=== PATIENT | male | born 1970 | race Caucasian/White ===

== ENCOUNTER 2016-12-06 08:38 | Inpatient (IN) | payer OTHER ==
[2016-12-06 08:56] VITALS: BMI 26.7
--- NOTE | 2016-12-06 11:25 | HP ---
COWS - Scale Resting Pulse: 0= [place] 80 or Below Sweatin= Chills/Flushing Restless Observation: 3= Extraneous Movement Pupil Size: 2= Moderately Dilated Bone or Joint Aches: 4=Acute Joint/Muscle Pain Runny Nose/ Eye Tearin= Nasal Congestion GI Upset > 30mins: 2= Nausea/Diarrhea Tremor Observation: 1= Tremor [place], Not Seen Yawning Observation: 1= 1-2x During Session Anxiety or Irritability: 2=Irritable/Anxious Goose Flesh Skin: 0=Smooth Skin COWS Score: 17 Admission ROS S - HPI Chief Complaint: DETOX [place] FOR HEROIN DEPENDENCE Allergies/Adverse Reactions: Allergies Allergy/AdvReac Type Severity Reaction Status Date / Time No Known Allergies Allergy Verified 12/06/16 09:13 History of Present Illness: 46 Y/O MALE WITH A HX HEROIN DEPENDENCE SEEKING DETOX [place] Exam Limitations: No Limitations - Ebola screening Have you traveled outside of the country in the last 21 days: No Have you had contact with anyone from an Ebola affected area: No Have you been sick,other than usual withdrawal symptoms: No Do you have a fever: No - Review of Systems Constitutional: Chills, Loss of Appetite, Night Sweats, Changes in sleep EENT: reports: Blurred Vision, Tearing, Nose Congestion Respiratory: reports: No Symptoms reported Cardiac: reports: Lightheadedness GI: reports: Constipated, Diarrhea, Nausea, Poor Fluid Intake, Vomiting, Indigestion, Abdominal cramping : reports: Dysuria Musculoskeletal: reports: Back Pain, Joint Pain, Muscle Pain Integumentary: reports: No Symptoms Reported Neuro: reports: Headache Endocrine: reports: No Symptoms Reported Hematology: reports: No Symptoms Reported Psychiatric: reports: Orientated x3, Agitated, Anxious, Depressed (HX DEPRESSION ) Other Systems: Reviewed and Negative Patient History - Patient Medical History Hx Anemia: No Hx Asthma: No Hx Chronic Obstructive Pulmonary Disease (COPD): No Hx Cancer: No Hx Cardiac Disorders: No Hx Congestive Heart Failure: No Hx Hypertension: No Hx Hypercholesterolemia: No Hx Pacemaker: No HX Cerebrovascular Accident: No Hx Seizures: No Hx Dementia: No Hx Diabetes: No Hx Gastrointestinal Disorders: No Hx Liver Disease: No Hx Genitourinary Disorders: No Hx Sexually Transmitted Disorders: No Hx Renal Disease (ESRD): No Hx Thyroid Disease: No Hx Human Immunodeficiency Virus (HIV): No (LAST 12/03 NEGATIVE) Hx Hepatitis C: Yes (NO TREATMENT) Hx Depression: Yes (NOT CURRENTLY ON MEDS) Hx Suicide Attempt: No (DENIES) Hx Bipolar Disorder: No Hx Schizophrenia: No - Patient Surgical History Past Surgical History: Yes Hx Neurologic Surgery: No Hx Cataract Extraction: No Hx Cardiac Surgery: No Hx Lung Surgery: No Hx Breast Surgery: No Hx Breast Biopsy: No Hx Abdominal Surgery: No Hx Appendectomy: No Hx Cholecystectomy: No Hx Genitourinary Surgery: No Hx Section: No Hx Orthopedic Surgery: No Other Surgical History: TOSLLECTOMY IN 1980 Anesthesia Reaction: No - PPD History Previous Implant?: Yes Documented Results: Negative w/proof Implanted On Prior [facility] Admission?: Yes Date: 05/24/16 Results: 0 MM PPD to be Administered?: No - Reproductive History Patient is a Female of Child Bearing Age (11 -55 yrs old): No (MALE) - Smoking Cessation Smoking history: Current every day smoker Have you smoked in the past 12 months: Yes Aproximately how many cigarettes per day: 60 Cigars Per Day: 0 Hx Chewing Tobacco Use: No Initiated information on smoking cessation: Yes 'Breaking Loose' booklet given: 12/06/16 - Substance & Tx. History Hx Alcohol Use: Yes (GIN-STATES NOT A PROBLEM SAYS DON'T DRINK EVERY DAY.) Hx Substance Use: Yes (HEROIN) Substance Use Type: Alcohol, Heroin Hx Substance Use Treatment: Yes ([facility]) - Substances Abused Heroin Route: Injection Frequency: Daily Amount used: 6 BAGS Age of first use: 44 Date of Last Use: 12/06/16 Family Disease History - Family Disease History Family History: Denies Admission Physical Exam [facility] - Vital Signs Vital Signs: Vital Signs - 24 hr 12/06/16 08:50 Temperature 96.3 F L Pulse Rate 80 Respiratory 18 Rate Blood Pressure 122/80 - Physical General Appearance: Yes: Irritable, Anxious HEENTM: Yes: EOMI, Normocephalic, ANDREW, Pharynx Normal Respiratory: Yes: Chest Non-Tender, Lungs Clear, Normal Breath Sounds, No Respiratory Distress Neck: Yes: Supple, Trachea in good position Breast: Yes: Breast Exam Deferred Abdominal: Yes: Normal Bowel Sounds, Non Tender, Soft Genitourinary: Yes: Other (N/C) Back: Yes: Within Normal Limits Musculoskeletal: Yes: full range of Motion, Gait Steady Extremities: Yes: Normal Range of Motion, Non-Tender Neurological: Yes: manager transmission II-XII NML intact, Fully Oriented, Alert, Motor Strength 5/5 Integumentary: Yes: Dry, Warm, Track [place] Lymphatic: Yes: Within Normal Limits - Diagnostic (1) History of tonsillectomy Current Visit: Yes Status: Chronic (2) Insomnia Current Visit: Yes Status: Chronic (3) Nicotine dependence Current Visit: Yes Status: Chronic Qualifiers: Nicotine product type: cigarettes Substance use status: uncomplicated Qualified Code(s): F17.210 - Nicotine dependence, cigarettes, uncomplicated (4) Opioid dependence with withdrawal Current Visit: Yes Status: Acute Cleared for Admission [facility] - Detox or Rehab [facility] Level of Care: Medically Managed Detox Regimen/Protocol: Methadone [facility] Breath Alcohol Content Breath Alcohol Content: 0 Urine Drug Screen - Results Drug Screen Negative: No Urine Drug Screen Results: OPI-Opiates
[2016-12-06] MEDS ORDERED: MAG HYDROX/AL HYDROX/SIMETH 30 ML UNIT-DOSE CUP PO PRN (12:05)
[2016-12-06] MEDS ORDERED: P-EPHED 60MG/TRIPROLIDI 2.5MG TABLET PO PRN (12:05)
[2016-12-06] MEDS ORDERED: hydrOXYzine PAMOATE 25 MG CAPSULE (FP) PO PRN (12:05)
[2016-12-06] MEDS ORDERED: NICOTINE POLACRILEX 4 MG GUM BUC PRN (12:05)
[2016-12-06] MEDS ORDERED: guaiFENesin/D-METHORPHAN HB 10 ML UNIT-DOSE CUPS PO PRN (12:05)
[2016-12-06] MEDS ORDERED: IBUPROFEN 400 MG TABLET (FP) PO PRN (12:05)
[2016-12-06] MEDS ORDERED: ACETAMINOPHEN 325 MG TABLET (FP) PO PRN (12:05)
[2016-12-06] MEDS ORDERED: MAGNESIUM HYDROX 2400MG/30ML ORAL SUSPENSION 30 ML CUP PO PRN (12:05)
[2016-12-06] MEDS ORDERED: LOPERAMIDE HCL 2 MG CAPSULE PO PRN (12:05)
[2016-12-06] MEDS ORDERED: MENTHOL/PHENOL 1 EACH UD MM PRN (12:05)
[2016-12-06] MEDS ORDERED: MAGNESIUM CITRATE 300 ML BOTTLE PO PRN (12:05)
[2016-12-06] MEDS ORDERED: METHADONE HCL 10 MG TABLET (FOR DETOX USE ONLY) PO ONE ×2 (12:16→23:00)
[2016-12-06] MEDS: diazePAM 5 MG TABLET PO PRN ×2 (12:27→22:21)
[2016-12-06] MEDS: NICOTINE 21 MG/24 HOURS TOPICAL PATCH TD SCH (12:27)
--- NOTE | 2016-12-06 17:06 | EKG ---
Test Reason : Blood Pressure : / mmHG Vent. Rate : 084 BPM Atrial Rate : 084 BPM P-R Int : 136 ms QRS Dur : 088 ms QT Int : 388 ms P-R-T Axes : 065 070 066 degrees QTc Int : 458 ms NORMAL SINUS RHYTHM NORMAL ECG NO PREVIOUS ECGS AVAILABLE Confirmed by ELIDA WALTERS, JESU ([id number]) on 12/06/2016 5:05:36 PM Referred By: Mike Guerra Confirmed By:JESU MARRERO MD
[2016-12-06 19:04] LABS: URINE APPEARANCE CLEAR; URINE BILIRUBIN NEGATIVE (NEGATIVE); URINE BLOOD NEGATIVE (NEGATIVE); URINE COLOR YELLOW; URINE GLUCOSE (UA) NEGATIVE (NEGATIVE); URINE KETONE NEGATIVE (NEGATIVE); URINE LEUK ESTERASE NEGATIVE (NEGATIVE); URINE NITRITE NEGATIVE (NEGATIVE); URINE PROTEIN NEGATIVE (NEGATIVE); URINE UROBILINOGEN NEGATIVE E.U./dl (0.2-1.0)
[2016-12-06] MEDS: THIAMINE HCL 100 MG TABLET (FP) PO SCH (22:20)
[2016-12-06] MEDS: diphenhydrAMINE HCL 50 MG CAPSULE PO PRN (22:22)
[2016-12-07] MEDS: diazePAM 5 MG TABLET PO PRN ×3 (05:39→22:32)
[2016-12-07] MEDS ORDERED: METHADONE HCL 10 MG TABLET (FOR DETOX USE ONLY) PO ONE (10:00)
[2016-12-07 10:31] LABS: MCHC 33.4 g/dl (32.0-35.9); MEAN CELL VOLUME 89.8 fl (80-96); PLATELET COUNT 202 K/MM3 (134-434); RDW 13.9 % (11.9-15.9); WHITE BLOOD COUNT 7.9 K/mm3 (4.0-10.0)
--- NOTE | 2016-12-07 10:50 | CONSULT ---
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 Smoking history: Current every day smoker. Have you smoked in the past 12 months: Yes. Aproximately how many cigarettes per day: 60. Cigars Per Day: 0. Hx Chewing Tobacco Use: No. Initiated information on smoking cessation: Yes. 'Breaking Loose' booklet given : 12/06/16. - Substance & Tx. History. Hx Alcohol Use: Yes (GIN-STATES NOT A PROBLEM SAYS DON'T DRINK EVERY DAY.). Hx Substance Use: Yes (HEROIN). Substance Use Type: Alcohol, Heroin. Hx Substance Use Treatment: Yes ([facility]- DETOX). - Substances Abused. Heroin. Route: Injection. Frequency: Daily. Amount used: 6 BAGS. Age of first use: 44. Date of Last Use: 12/06/16 Medical History: Significant for history of Hep C and S/P Tonsillectomy. Smokes cigarettes 3ppd Psychiatric History: Reports seeing a therapist for personal issues in his life. Told ghost writer that his addiction stemmed from those issues. Denies previous psychiatric hospitalization or suicidal attempt. At present, he is very angry and reporting having difficulty to sleep Mental Status Exam - Mental Status Exam Alert and Oriented to: Time, Place, Person Cognitive Function: Fair Patient Appearance: Well Groomed Mood: Angry, Irritable Affect: Appropriate Patient Behavior: Guarded, Cooperative Speech Pattern: Clear Voice Loudness: Normal Thought Process: Intact Thought Disorder: Not Present Hallucinations: Denies Suicidal Ideation: Denies Homicidal Ideation: Denies Insight/Judgement: Poor Sleep: Poorly Appetite: Fair Muscle strength/Tone: Normal Gait/Station: Normal Psychiatric Findings - Problem List ([place] 1, 2,3) (1) Substance induced mood disorder Current Visit: Yes Status: Acute (2) Opioid dependence with withdrawal Current Visit: Yes Status: Acute (3) Nicotine dependence Current Visit: Yes Status: Chronic Qualifiers: Nicotine product type: cigarettes Substance use status: uncomplicated Qualified Code(s): F17.210 - Nicotine dependence, cigarettes, uncomplicated (4) History of tonsillectomy Current Visit: Yes Status: Chronic (5) Hepatitis C Current Visit: Yes Status: Acute (6) Substance-induced sleep disorder Current Visit: Yes Status: Acute - Initial Treatment Plan Initial Treatment Plan: 1) Start Ambien 10 mg po HS prn for insomnia. 2) Continue inpatient detoxification
[2016-12-07] MEDS: PRENATAL VITAMINS W/ FOLIC ACID TABLET (FP) PO SCH (10:56)
[2016-12-07] MEDS: NICOTINE 21 MG/24 HOURS TOPICAL PATCH TD SCH (10:56)
--- NOTE | 2016-12-07 11:02 | PN ---
BHS COWS - Scale Resting Pulse: 1= [place] 81-100 Sweatin= Chills/Flushing Restless Observation: 3= Extraneous Movement Pupil Size: 2= Moderately Dilated Bone or Joint Aches: 4=Acute Joint/Muscle Pain Runny Nose/ Eye Tearin= Nasal Congestion GI Upset > 30mins: 1= Stomach Cramp Tremor Observation of Outstretched Hands: 2= Slight Tremor Visible Yawning Observation: 2= >3x During Session Anxiety or Irritability: 2=Irritable/Anxious Goose Flesh Skin: 0=Smooth Skin COWS Score: 19 BHS Progress Note (SOAP) Subjective: ANXIETY,SWEATS,CHILLS,INTERMITTENT SLEEP. Objective: 12/07/16 11:02 Vital Signs Temperature 96.6 F L 12/07/16 09:34 Pulse Rate 84 12/07/16 09:34 Respiratory Rate 18 12/07/16 09:34 Blood Pressure 144/104 12/07/16 09:34 O2 Sat by Pulse Oximetry (%) Laboratory Last Values WBC 7.9 K/mm3 (4.0-10.0) 12/07/16 06:00 RBC 5.05 M/mm3 (4.00-5.60) 12/07/16 06:00 Hgb 15.2 GM/dL (11.7-16.9) 12/07/16 06:00 Hct 45.4 % (35.4-49) 12/07/16 06:00 MCV 89.8 fl (80-96) 12/07/16 06:00 MCHC 33.4 g/dl (32.0-35.9) 12/07/16 06:00 RDW 13.9 % (11.9-15.9) D 12/07/16 06:00 Plt Count 202 K/MM3 (134-434) 12/07/16 06:00 MPV 9.0 fl (7.5-11.1) 12/07/16 06:00 Urine Color Yellow 12/06/16 14:00 Urine Appearance Clear 12/06/16 14:00 Urine pH 5.0 (5.0-8.0) 12/06/16 14:00 Ur Specific [place] 1.021 (1.001-1.035) 12/06/16 14:00 Urine Protein Negative (NEGATIVE) 12/06/16 14:00 Urine Glucose (UA) Negative (NEGATIVE) 12/06/16 14:00 Urine Ketones Negative (NEGATIVE) 12/06/16 14:00 Urine Blood Negative (NEGATIVE) 12/06/16 14:00 Urine Nitrite Negative (NEGATIVE) 12/06/16 14:00 Urine Bilirubin Negative (NEGATIVE) 12/06/16 14:00 Urine Urobilinogen Negative E.U./dl (0.2-1.0) 12/06/16 14:00 Ur Leukocyte Esterase Negative (NEGATIVE) 12/06/16 14:00 Assessment: 12/07/16 11:02 WITHDRAWAL SX Plan: CONTINUE DETOX
[2016-12-07 11:19] LABS: ALBUMIN 3.9 g/dl (3.4-5.0); ALK PHOS 192 U/L (45-117); ANION GAP 7 (8-16); BILIRUBIN,TOTAL 0.4 mg/dL (0.2-1.0); CALCIUM 9.1 mg/dL (8.5-10.1); CO2 31 mmol/L (21-32); CREATININE 1.1 mg/dL (0.7-1.3); GLUCOSE,RANDOM 98 mg/dL (74-106); SGOT/AST 56 U/L (15-37); SGPT/ALT 69 U/L (12-78); TOT PROT 7.6 g/dl (6.4-8.2)
[2016-12-07] MEDS ORDERED: ZOLPIDEM TARTRATE 10 MG TABLET (PARK CARE ONLY) PO PRN (22:00)
[2016-12-07] MEDS: diphenhydrAMINE HCL 50 MG CAPSULE PO PRN (22:31)
[2016-12-07] MEDS: THIAMINE HCL 100 MG TABLET (FP) PO SCH (22:31)
[2016-12-08] MEDS: diazePAM 5 MG TABLET PO PRN ×3 (05:20→22:42)
[2016-12-08] MEDS ORDERED: METHADONE HCL 5 MG TABLET (FOR DETOX USE ONLY) PO ONE (10:00)
[2016-12-08] MEDS: PRENATAL VITAMINS W/ FOLIC ACID TABLET (FP) PO SCH (10:38)
[2016-12-08] MEDS: NICOTINE 21 MG/24 HOURS TOPICAL PATCH TD SCH (11:01)
--- NOTE | 2016-12-08 11:34 | PN ---
BHS COWS - Scale Resting Pulse: 0= [place] 80 or Below Sweatin= Chills/Flushing Restless Observation: 3= Extraneous Movement Pupil Size: 0= Normal to Room Light Bone or Joint Aches: 2= Severe Diffuse Aches Runny Nose/ Eye Tearin= Nasal Congestion GI Upset > 30mins: 2= Nausea/Diarrhea Tremor Observation of Outstretched Hands: 2= Slight Tremor Visible Yawning Observation: 0= None Anxiety or Irritability: 2=Irritable/Anxious Goose Flesh Skin: 0=Smooth Skin COWS Score: 13 S Progress Note (SOAP) Subjective: irritability, shakes, sweats and nausea Objective: 12/08/16 11:33 Vital Signs - 8 hr 12/08/16 12/08/16 06:31 10:59 Temperature 97.2 F L 97 F L Pulse Rate 77 82 Respiratory 18 20 Rate Blood Pressure 144/93 126/91 Laboratory Last Values WBC 7.9 K/mm3 (4.0-10.0) 12/07/16 06:00 RBC 5.05 M/mm3 (4.00-5.60) 12/07/16 06:00 Hgb 15.2 GM/dL (11.7-16.9) 12/07/16 06:00 Hct 45.4 % (35.4-49) 12/07/16 06:00 MCV 89.8 fl (80-96) 12/07/16 06:00 MCHC 33.4 g/dl (32.0-35.9) 12/07/16 06:00 RDW 13.9 % (11.9-15.9) D 12/07/16 06:00 Plt Count 202 K/MM3 (134-434) 12/07/16 06:00 MPV 9.0 fl (7.5-11.1) 12/07/16 06:00 Sodium 141 mmol/L (136-145) 12/07/16 06:00 Potassium 3.9 mmol/L (3.5-5.1) 12/07/16 06:00 Chloride 103 mmol/L (98-107) 12/07/16 06:00 Carbon Dioxide 31 mmol/L (21-32) 12/07/16 06:00 Anion Gap 7 (8-16) L 12/07/16 06:00 BUN 15 mg/dL (7-18) D 12/07/16 06:00 Creatinine 1.1 mg/dL (0.7-1.3) 12/07/16 06:00 Creat Clearance w eGFR > 60 (>60) 12/07/16 06:00 Random Glucose 98 mg/dL (74-106) 12/07/16 06:00 Calcium 9.1 mg/dL (8.5-10.1) 12/07/16 06:00 Total Bilirubin 0.4 mg/dL (0.2-1.0) 12/07/16 06:00 AST 56 U/L (15-37) H D 12/07/16 06:00 ALT 69 U/L (12-78) 12/07/16 06:00 Alkaline Phosphatase 192 U/L (45-117) H 12/07/16 06:00 Total Protein 7.6 g/dl (6.4-8.2) 12/07/16 06:00 Albumin 3.9 g/dl (3.4-5.0) 12/07/16 06:00 Urine Color Yellow 12/06/16 14:00 Urine Appearance Clear 12/06/16 14:00 Urine pH 5.0 (5.0-8.0) 12/06/16 14:00 Ur Specific [place] 1.021 (1.001-1.035) 12/06/16 14:00 Urine Protein Negative (NEGATIVE) 12/06/16 14:00 Urine Glucose (UA) Negative (NEGATIVE) 12/06/16 14:00 Urine Ketones Negative (NEGATIVE) 12/06/16 14:00 Urine Blood Negative (NEGATIVE) 12/06/16 14:00 Urine Nitrite Negative (NEGATIVE) 12/06/16 14:00 Urine Bilirubin Negative (NEGATIVE) 12/06/16 14:00 Urine Urobilinogen Negative E.U./dl (0.2-1.0) 12/06/16 14:00 Ur Leukocyte Esterase Negative (NEGATIVE) 12/06/16 14:00 RPR Titer Nonreactive (NONREACTIVE) 12/07/16 06:00 Labs noted Assessment: 12/08/16 11:34 withdrawal sx Plan: continue detox
[2016-12-08] MEDS: THIAMINE HCL 100 MG TABLET (FP) PO SCH (22:42)
[2016-12-09] MEDS: diazePAM 5 MG TABLET PO PRN (05:15)
[2016-12-09 06:27] VITALS: BP 130/79; PULSE 78; TEMP 97.3
[2016-12-09] MEDS ORDERED: METHADONE HCL 5 MG TABLET (FOR DETOX USE ONLY) PO ONE (10:00)
--- NOTE | 2016-12-09 10:59 | DS ---
[facility] Detox Discharge Summary Admission Date: 12/06/16 Discharge Date: 12/09/16 - History Present History: Cocaine Dependence, Opioid Dependence Pertinent Past History: Hep C- Never Treated - Physical Exam Results Vital Signs: Vital Signs Temperature 97.3 F L 12/09/16 06:27 Pulse Rate 78 12/09/16 06:27 Respiratory Rate 18 12/09/16 06:27 Blood Pressure 130/79 12/09/16 06:27 O2 Sat by Pulse Oximetry (%) Pertinent Admission Physical Exam Findings: Withdrawal Symptoms Laboratory Last Values WBC 7.9 K/mm3 (4.0-10.0) 12/07/16 06:00 RBC 5.05 M/mm3 (4.00-5.60) 12/07/16 06:00 Hgb 15.2 GM/dL (11.7-16.9) 12/07/16 06:00 Hct 45.4 % (35.4-49) 12/07/16 06:00 MCV 89.8 fl (80-96) 12/07/16 06:00 MCHC 33.4 g/dl (32.0-35.9) 12/07/16 06:00 RDW 13.9 % (11.9-15.9) D 12/07/16 06:00 Plt Count 202 K/MM3 (134-434) 12/07/16 06:00 MPV 9.0 fl (7.5-11.1) 12/07/16 06:00 Sodium 141 mmol/L (136-145) 12/07/16 06:00 Potassium 3.9 mmol/L (3.5-5.1) 12/07/16 06:00 Chloride 103 mmol/L (98-107) 12/07/16 06:00 Carbon Dioxide 31 mmol/L (21-32) 12/07/16 06:00 Anion Gap 7 (8-16) L 12/07/16 06:00 BUN 15 mg/dL (7-18) D 12/07/16 06:00 Creatinine 1.1 mg/dL (0.7-1.3) 12/07/16 06:00 Creat Clearance w eGFR > 60 (>60) 12/07/16 06:00 Random Glucose 98 mg/dL (74-106) 12/07/16 06:00 Calcium 9.1 mg/dL (8.5-10.1) 12/07/16 06:00 Total Bilirubin 0.4 mg/dL (0.2-1.0) 12/07/16 06:00 AST 56 U/L (15-37) H D 12/07/16 06:00 ALT 69 U/L (12-78) 12/07/16 06:00 Alkaline Phosphatase 192 U/L (45-117) H 12/07/16 06:00 Total Protein 7.6 g/dl (6.4-8.2) 12/07/16 06:00 Albumin 3.9 g/dl (3.4-5.0) 12/07/16 06:00 Urine Color Yellow 12/06/16 14:00 Urine Appearance Clear 12/06/16 14:00 Urine pH 5.0 (5.0-8.0) 12/06/16 14:00 Ur Specific [place] 1.021 (1.001-1.035) 12/06/16 14:00 Urine Protein Negative (NEGATIVE) 12/06/16 14:00 Urine Glucose (UA) Negative (NEGATIVE) 12/06/16 14:00 Urine Ketones Negative (NEGATIVE) 12/06/16 14:00 Urine Blood Negative (NEGATIVE) 12/06/16 14:00 Urine Nitrite Negative (NEGATIVE) 12/06/16 14:00 Urine Bilirubin Negative (NEGATIVE) 12/06/16 14:00 Urine Urobilinogen Negative E.U./dl (0.2-1.0) 12/06/16 14:00 Ur Leukocyte Esterase Negative (NEGATIVE) 12/06/16 14:00 RPR Titer Nonreactive (NONREACTIVE) 12/07/16 06:00 labs noted - Treatment Hospital Course: Discharged Condition Good Patient has Accepted a Rehab Referral to: declined - Medication Discharge Medications: Ambulatory Orders NK [No Known Home Medication] 05/22/16 - Diagnosis (1) Cocaine abuse Status: Acute (2) Drug-induced mood disorder Status: Acute (3) Hepatitis C Status: Chronic (4) Opioid dependence with withdrawal Status: Acute (5) Substance induced mood disorder Status: Acute (6) Substance-induced sleep disorder Status: Acute - AMA Did Patient Leave Against Medical Advice: Yes
[2016-12-10] MEDS ORDERED: METHADONE HCL 10 MG TABLET (FOR DETOX USE ONLY) PO ONE (10:00)
[2016-12-11] MEDS ORDERED: METHADONE HCL 5 MG TABLET (FOR DETOX USE ONLY) PO ONE (06:00)
== END 2016-12-09 09:12 | disposition home or self-care (01) | DRG 897 ==
LOC: YASAS 08:38 → Y3N 10:59
PROVIDERS: ADMIT Internal Medicine; ATTEND Internal Medicine
PROC: HZ2ZZZZ Detoxification Services for Substance Abuse Treatment (ICD-10-PCS; principal; 2016-12-06)
DX: F11.23 Opioid dependence with withdrawal (principal); F19.282 Other psychoactive substance dependence with psychoactive substance-induced sleep disorder; F14.10 Cocaine abuse, uncomplicated; F17.210 Nicotine dependence, cigarettes, uncomplicated; F19.24 Other psychoactive substance dependence with psychoactive substance-induced mood disorder; B18.2 Chronic viral hepatitis C; G47.00 Insomnia, unspecified
CPT/HCPCS: 36415; 80053; 81003; 85027; 86593; 93005; 93010

== ENCOUNTER 2017-06-27 16:55 | Inpatient (IN) | payer OTHER ==
[2017-06-27 17:17] VITALS: BMI 26.4
--- NOTE | 2017-06-27 18:31 | HP ---
COWS - Scale Resting Pulse: 1= [place] 81-100 Sweatin=Flushed/Facial Moisture Restless Observation: 3= Extraneous Movement Pupil Size: 2= Moderately Dilated Bone or Joint Aches: 2= Severe Diffuse Aches Runny Nose/ Eye Tearin= Runny Nose/Eyes GI Upset > 30mins: 3= Vomiting/Diarrhea Tremor Observation: 2= Slight Tremor Visible Yawning Observation: 2= >3x During Session Anxiety or Irritability: 2=Irritable/Anxious Goose Flesh Skin: 0=Smooth Skin COWS Score: 21 Admission ROS S - HPI Chief Complaint: i need help to stop using heroin Allergies/Adverse Reactions: Allergies Allergy/AdvReac Type Severity Reaction Status Date / Time No Known Allergies Allergy Verified 06/27/17 17:40 History of Present Illness: this 47 years old male with heroin dependence,seeking detox,last treatment 12/06 to 12/09/16 [facility] nicotine dependence anxiety and depression no significant period of sobriety - Ebola screening Have you traveled outside of the country in the last 21 days: No Have you had contact with anyone from an Ebola affected area: No Have you been sick,other than usual withdrawal symptoms: No Do you have a fever: No - Review of Systems Constitutional: Chills, Diaphoresis, Loss of Appetite, Malaise, Night Sweats, Changes in sleep, Weakness EENT: reports: Tearing, Nose Congestion Respiratory: reports: No Symptoms reported Cardiac: reports: No Symptoms Reported GI: reports: No Symptoms Reported : reports: No Symptoms Reported Musculoskeletal: reports: Back Pain, Joint Pain, Muscle Pain, Joint Stiffness Integumentary: reports: Dryness Neuro: reports: Headache, Tremors Endocrine: reports: No Symptoms Reported Hematology: reports: No Symptoms Reported Psychiatric: reports: Anxious, Depressed (insomnia) Patient History - Patient Medical History Hx Anemia: No Hx Asthma: No Hx Chronic Obstructive Pulmonary Disease (COPD): No Hx Cancer: No Hx Cardiac Disorders: No Hx Congestive Heart Failure: No Hx Hypertension: No Hx Hypercholesterolemia: No Hx Pacemaker: No HX Cerebrovascular Accident: No Hx Seizures: No Hx Dementia: No Hx Diabetes: No Hx Gastrointestinal Disorders: No Hx Liver Disease: No Hx Genitourinary Disorders: No Hx Sexually Transmitted Disorders: No Hx Renal Disease (ESRD): No Hx Thyroid Disease: No Hx Human Immunodeficiency Virus (HIV): No (LAST 12/03 NEGATIVE) Hx Hepatitis C: Yes (NO TREATMENT) Hx Depression: Yes (NOT CURRENTLY ON MEDS) Hx Suicide Attempt: No (DENIES) Hx Bipolar Disorder: No Hx Schizophrenia: No Other Medical History: no suicidal,no homicidal - Patient Surgical History Past Surgical History: Yes Hx Neurologic Surgery: No Hx Cataract Extraction: No Hx Cardiac Surgery: No Hx Lung Surgery: No Hx Breast Surgery: No Hx Breast Biopsy: No Hx Abdominal Surgery: No Hx Appendectomy: No Hx Cholecystectomy: No Hx Genitourinary Surgery: No Hx Section: No Hx Orthopedic Surgery: No Other Surgical History: TONSILECTOMY @ 14 YEARS Anesthesia Reaction: No - PPD History Previous Implant?: Yes Date: 05/24/16 Results: 0 MM PPD to be Administered?: Yes - Smoking Cessation Smoking history: Current every day smoker Have you smoked in the past 12 months: Yes Aproximately how many cigarettes per day: 60 Cigars Per Day: 0 Hx Chewing Tobacco Use: No Initiated information on smoking cessation: Yes 'Breaking Loose' booklet given: 06/27/17 - Substance & Tx. History Hx Alcohol Use: No Hx Substance Use: Yes Substance Use Type: Heroin Hx Substance Use Treatment: Yes ([facility] to 12/09/16) - Substances Abused Heroin Route: Inhalation Frequency: Daily Amount used: 10 bags Age of first use: 14 Date of Last Use: 06/27/17 Family Disease History - Family Disease History Family History: Denies Admission Physical Exam S - Vital Signs Vital Signs: Vital Signs - 24 hr 06/27/17 17:13 Temperature 96.4 F L Pulse Rate 93 H Respiratory 18 Rate Blood Pressure 143/90 - Physical General Appearance: Yes: Moderate Distress, Tremorous, Irritable, Sweating, Anxious HEENTM: Yes: Hearing grossly Normal, Normal ENT Inspection, ANDREW, Pharynx Normal Respiratory: Yes: Lungs Clear, Normal Breath Sounds, No Respiratory Distress Neck: Yes: Supple, Trachea in good position, Other (pain in the neck with pain on movemant denied trauma) Breast: Yes: Breast Exam Deferred Cardiology: Yes: Within Normal Limits, Regular Rhythm, Regular Rate, S1, S2 Abdominal: Yes: Within Normal Limits, Non Tender, Flat, Soft, Increased Bowel Sounds Genitourinary: Yes: Within Normal Limits Back: Yes: Muscle Spasm Musculoskeletal: Yes: full range of Motion, Back pain Extremities: Yes: Normal Range of Motion, Tremors Neurological: Yes: trolley cleaner II-XII NML intact, Fully Oriented, Alert, Motor Strength 5/5 Integumentary: Yes: Dry Lymphatic: Yes: Within Normal Limits - Diagnostic (1) Anxiety and depression Current Visit: No Status: Acute (2) Opioid dependence with withdrawal Current Visit: No Status: Acute (3) Hepatitis C Current Visit: No Status: Chronic (4) History of tonsillectomy Current Visit: No Status: Chronic (5) Nicotine dependence Current Visit: No Status: Chronic Qualifiers: Nicotine product type: cigarettes Substance use status: uncomplicated Qualified Code(s): F17.210 - Nicotine dependence, cigarettes, uncomplicated (6) Neck pain Current Visit: Yes Status: Acute Cleared for Admission [facility] - Detox or Rehab [facility] Level of Care: Medically Managed Detox Regimen/Protocol: Methadone [facility] Breath Alcohol Content Breath Alcohol Content: 0 Urine Drug Screen - Results Drug Screen Negative: No Urine Drug Screen Results: THC-Marijuana, OPI-Opiates, TCA-Tricyclic Antidepress
[2017-06-27] MEDS ORDERED: MAG HYDROX/AL HYDROX/SIMETH 30 ML UNIT-DOSE CUP PO PRN (18:58)
[2017-06-27] MEDS ORDERED: METHADONE HCL 10 MG TABLET (FOR DETOX USE ONLY) PO ONE ×2 (18:58→23:00)
[2017-06-27] MEDS ORDERED: MENTHOL/PHENOL 1 EACH UD MM PRN (18:58)
[2017-06-27] MEDS ORDERED: NICOTINE POLACRILEX 2 MG GUM BUC PRN (18:58)
[2017-06-27] MEDS ORDERED: guaiFENesin/D-METHORPHAN HB 10 ML UNIT-DOSE CUPS PO PRN (18:58)
[2017-06-27] MEDS ORDERED: hydrOXYzine PAMOATE 25 MG CAPSULE (FP) PO PRN (18:58)
[2017-06-27] MEDS ORDERED: P-EPHED 60MG/TRIPROLIDI 2.5MG TABLET PO PRN (18:58)
[2017-06-27] MEDS ORDERED: MAGNESIUM CITRATE 300 ML BOTTLE PO PRN (18:58)
[2017-06-27] MEDS ORDERED: LOPERAMIDE HCL 2 MG CAPSULE PO PRN (18:58)
[2017-06-27] MEDS ORDERED: MAGNESIUM HYDROX 2400MG/30ML ORAL SUSPENSION 30 ML CUP PO PRN (18:58)
[2017-06-27] MEDS: NICOTINE 21 MG/24 HOURS TOPICAL PATCH TD SCH (19:17)
[2017-06-27] MEDS: diazePAM 5 MG TABLET PO PRN (19:19)
[2017-06-27] MEDS: CYCLOBENZAPRINE HCL 10 MG TABLET (FP) PO PRN ×2 (19:21→22:26)
[2017-06-27] MEDS: IBUPROFEN 400 MG TABLET (FP) PO PRN (19:21)
[2017-06-27 22:25] LABS: URINE APPEARANCE CLEAR; URINE BILIRUBIN NEGATIVE (NEGATIVE); URINE BLOOD NEGATIVE (NEGATIVE); URINE COLOR LTYELLOW; URINE GLUCOSE (UA) NEGATIVE (NEGATIVE); URINE KETONE NEGATIVE (NEGATIVE); URINE LEUK ESTERASE NEGATIVE (NEGATIVE); URINE NITRITE NEGATIVE (NEGATIVE); URINE PROTEIN NEGATIVE (NEGATIVE); URINE UROBILINOGEN NEGATIVE mg/dL (0.2-1.0)
[2017-06-27] MEDS: cloNIDine HCL 0.1 MG TABLET PO SCH (22:26)
[2017-06-27] MEDS: THIAMINE HCL 100 MG TABLET (FP) PO SCH (22:26)
[2017-06-28] MEDS: diazePAM 5 MG TABLET PO PRN ×4 (06:12→22:13)
[2017-06-28] MEDS: CYCLOBENZAPRINE HCL 10 MG TABLET (FP) PO PRN ×3 (06:13→22:13)
[2017-06-28] MEDS: IBUPROFEN 400 MG TABLET (FP) PO PRN (06:13)
--- NOTE | 2017-06-28 09:36 | EKG ---
Test Reason : Blood Pressure : / mmHG Vent. Rate : 075 BPM Atrial Rate : 075 BPM P-R Int : 140 ms QRS Dur : 092 ms QT Int : 390 ms P-R-T Axes : 066 075 072 degrees QTc Int : 435 ms NORMAL SINUS RHYTHM INCOMPLETE RBBB WHEN COMPARED WITH ECG OF 06-DEC-2016 12:10, NO SIGNIFICANT CHANGE WAS FOUND Confirmed by NAYELI MUÑIZ MD ([id number]) on 06/28/2017 9:35:59 AM Referred By: Confirmed By:NAYELI MUÑIZ MD
[2017-06-28] MEDS ORDERED: METHADONE HCL 10 MG TABLET (FOR DETOX USE ONLY) PO ONE (10:00)
[2017-06-28 10:09] LABS: ALBUMIN 3.3 g/dl (3.4-5.0); ANION GAP 6 (8-16); CALCIUM 9.2 mg/dL (8.5-10.1); CO2 30 mmol/L (21-32); GLUCOSE,RANDOM 76 mg/dL (74-106)
[2017-06-28 10:14] LABS: ALK PHOS 182 U/L (45-117); BILIRUBIN,TOTAL 0.5 mg/dL (0.2-1.0); SGOT/AST 40 U/L (15-37); SGPT/ALT 52 U/L (12-78); TOT PROT 7.4 g/dl (6.4-8.2)
[2017-06-28 10:15] LABS: MCH 29.1 pg (25.7-33.7); MCHC 33.1 g/dl (32.0-35.9); MEAN CELL VOLUME 87.9 fl (80-96); MEAN PLT VOLUME 8.5 fl (7.5-11.1); PLATELET COUNT 242 K/MM3 (134-434); RDW 14.1 % (11.9-15.9); WHITE BLOOD COUNT 7.3 K/mm3 (4.0-10.0)
[2017-06-28] MEDS: cloNIDine HCL 0.1 MG TABLET PO SCH ×2 (10:28→22:13)
[2017-06-28] MEDS: NICOTINE 21 MG/24 HOURS TOPICAL PATCH TD SCH (10:28)
[2017-06-28] MEDS: PRENATAL VITAMINS W/ FOLIC ACID TABLET (FP) PO SCH (10:28)
[2017-06-28] MEDS: ACETAMINOPHEN 325 MG TABLET (FP) PO PRN (10:29)
--- NOTE | 2017-06-28 11:02 | PN ---
S COWS - Scale Resting Pulse: 1= GA 81-100 Sweatin= Chills/Flushing Restless Observation: 3= Extraneous Movement Pupil Size: 1= Pupils >than Normal Bone or Joint Aches: 2= Severe Diffuse Aches Runny Nose/ Eye Tearin= Runny Nose/Eyes GI Upset > 30mins: 2= Nausea/Diarrhea Tremor Observation of Outstretched Hands: 2= Slight Tremor Visible Yawning Observation: 1= 1-2x During Session Anxiety or Irritability: 2=Irritable/Anxious Goose Flesh Skin: 0=Smooth Skin COWS Score: 17 S Progress Note (SOAP) Subjective: alert,irritable,anxious,interrupted sleep,tremor,pain in the body,joint and back Objective: 06/28/17 11:00 Vital Signs Temperature 97.2 F L 06/28/17 10:17 Pulse Rate 89 06/28/17 10:17 Respiratory Rate 18 06/28/17 10:17 Blood Pressure 135/88 06/28/17 10:17 O2 Sat by Pulse Oximetry (%) ekg nsr,normal ecg Laboratory Last Values WBC 7.3 K/mm3 (4.0-10.0) 06/28/17 07:00 RBC 4.79 M/mm3 (4.00-5.60) 06/28/17 07:00 Hgb 14.0 GM/dL (11.7-16.9) 06/28/17 07:00 Hct 42.1 % (35.4-49) 06/28/17 07:00 MCV 87.9 fl (80-96) 06/28/17 07:00 MCH 29.1 pg (25.7-33.7) 06/28/17 07:00 MCHC 33.1 g/dl (32.0-35.9) 06/28/17 07:00 RDW 14.1 % (11.9-15.9) 06/28/17 07:00 Plt Count 242 K/MM3 (134-434) 06/28/17 07:00 MPV 8.5 fl (7.5-11.1) 06/28/17 07:00 Sodium 141 mmol/L (136-145) 06/28/17 07:00 Potassium 4.6 mmol/L (3.5-5.1) 06/28/17 07:00 Chloride 105 mmol/L (98-107) 06/28/17 07:00 Carbon Dioxide 30 mmol/L (21-32) 06/28/17 07:00 Anion Gap 6 (8-16) L 06/28/17 07:00 BUN 16 mg/dL (7-18) 06/28/17 07:00 Creatinine 1.0 mg/dL (0.7-1.3) 06/28/17 07:00 Creat Clearance w eGFR > 60 (>60) 06/28/17 07:00 Random Glucose 76 mg/dL (74-106) D 06/28/17 07:00 Calcium 9.2 mg/dL (8.5-10.1) 06/28/17 07:00 Total Bilirubin 0.5 mg/dL (0.2-1.0) D 06/28/17 07:00 AST 40 U/L (15-37) H D 06/28/17 07:00 ALT 52 U/L (12-78) D 06/28/17 07:00 Alkaline Phosphatase 182 U/L (45-117) H 06/28/17 07:00 Total Protein 7.4 g/dl (6.4-8.2) 06/28/17 07:00 Albumin 3.3 g/dl (3.4-5.0) L 06/28/17 07:00 Urine Color Ltyellow 06/27/17 19:05 Urine Appearance Clear 06/27/17 19:05 Urine pH 5.0 (5.0-8.0) 06/27/17 19:05 Ur Specific [place] <= 1.005 (1.005-1.025) 06/27/17 19:05 Urine Protein Negative (NEGATIVE) 06/27/17 19:05 Urine Glucose (UA) Negative (NEGATIVE) 06/27/17 19:05 Urine Ketones Negative (NEGATIVE) 06/27/17 19:05 Urine Blood Negative (NEGATIVE) 06/27/17 19:05 Urine Nitrite Negative (NEGATIVE) 06/27/17 19:05 Urine Bilirubin Negative (NEGATIVE) 06/27/17 19:05 Urine Urobilinogen Negative mg/dL (0.2-1.0) 06/27/17 19:05 Ur Leukocyte Esterase Negative (NEGATIVE) 06/27/17 19:05 Assessment: 06/28/17 11:01 withdrawal symptom Plan: continue detox
[2017-06-28] MEDS: IBUPROFEN 600 MG TABLET (FP) PO PRN ×2 (14:34→22:13)
--- NOTE | 2017-06-28 16:44 | CONSULT ---
[facility] Psychiatric Consult - Data Date of interview: 06/28/17 Admission source: [facility] Identifying data: Patient is approached at bedside for psychiatric evaluation." I decline." Mr Rivera refused (politely) to have a psychiatric interview.Noted as relaxed,comfortably resting in bed.Nursing staff is made aware.
[2017-06-28] MEDS: THIAMINE HCL 100 MG TABLET (FP) PO SCH (22:13)
[2017-06-28] MEDS: diphenhydrAMINE HCL 50 MG CAPSULE PO PRN (22:13)
[2017-06-29] MEDS ORDERED: METHADONE HCL 5 MG TABLET (FOR DETOX USE ONLY) PO ONE (10:00)
[2017-06-29] MEDS: PRENATAL VITAMINS W/ FOLIC ACID TABLET (FP) PO SCH (10:30)
[2017-06-29] MEDS: NICOTINE 21 MG/24 HOURS TOPICAL PATCH TD SCH (10:30)
[2017-06-29] MEDS: cloNIDine HCL 0.1 MG TABLET PO SCH ×2 (10:30→22:36)
[2017-06-29] MEDS: IBUPROFEN 600 MG TABLET (FP) PO PRN ×2 (10:32→17:12)
--- NOTE | 2017-06-29 13:05 | PN ---
BHS COWS - Scale Resting Pulse: 1= [place] 81-100 Sweatin=Flushed/Facial Moisture Restless Observation: 1= Difficult to Sit Still Pupil Size: 0= Normal to Room Light Bone or Joint Aches: 2= Severe Diffuse Aches Runny Nose/ Eye Tearin= Runny Nose/Eyes GI Upset > 30mins: 2= Nausea/Diarrhea Tremor Observation of Outstretched Hands: 2= Slight Tremor Visible Yawning Observation: 1= 1-2x During Session Anxiety or Irritability: 2=Irritable/Anxious Goose Flesh Skin: 0=Smooth Skin COWS Score: 15 BHS Progress Note (SOAP) Subjective: Anxiety,tremors,sweating,interrupted sleep,restless. Objective: 06/29/17 13:13 Vital Signs - 8 hr 06/29/17 06/29/17 06:00 10:00 Temperature 97.0 F L 98.1 F Pulse Rate 71 83 Respiratory 18 20 Rate Blood Pressure 141/93 139/81 Laboratory Last Values WBC 7.3 K/mm3 (4.0-10.0) 06/28/17 07:00 RBC 4.79 M/mm3 (4.00-5.60) 06/28/17 07:00 Hgb 14.0 GM/dL (11.7-16.9) 06/28/17 07:00 Hct 42.1 % (35.4-49) 06/28/17 07:00 MCV 87.9 fl (80-96) 06/28/17 07:00 MCH 29.1 pg (25.7-33.7) 06/28/17 07:00 MCHC 33.1 g/dl (32.0-35.9) 06/28/17 07:00 RDW 14.1 % (11.9-15.9) 06/28/17 07:00 Plt Count 242 K/MM3 (134-434) 06/28/17 07:00 MPV 8.5 fl (7.5-11.1) 06/28/17 07:00 Sodium 141 mmol/L (136-145) 06/28/17 07:00 Potassium 4.6 mmol/L (3.5-5.1) 06/28/17 07:00 Chloride 105 mmol/L (98-107) 06/28/17 07:00 Carbon Dioxide 30 mmol/L (21-32) 06/28/17 07:00 Anion Gap 6 (8-16) L 06/28/17 07:00 BUN 16 mg/dL (7-18) 06/28/17 07:00 Creatinine 1.0 mg/dL (0.7-1.3) 06/28/17 07:00 Creat Clearance w eGFR > 60 (>60) 06/28/17 07:00 Random Glucose 76 mg/dL (74-106) D 06/28/17 07:00 Calcium 9.2 mg/dL (8.5-10.1) 06/28/17 07:00 Total Bilirubin 0.5 mg/dL (0.2-1.0) D 06/28/17 07:00 AST 40 U/L (15-37) H D 06/28/17 07:00 ALT 52 U/L (12-78) D 06/28/17 07:00 Alkaline Phosphatase 182 U/L (45-117) H 06/28/17 07:00 Total Protein 7.4 g/dl (6.4-8.2) 06/28/17 07:00 Albumin 3.3 g/dl (3.4-5.0) L 06/28/17 07:00 Urine Color Ltyellow 06/27/17 19:05 Urine Appearance Clear 06/27/17 19:05 Urine pH 5.0 (5.0-8.0) 06/27/17 19:05 Ur Specific [place] <= 1.005 (1.005-1.025) 06/27/17 19:05 Urine Protein Negative (NEGATIVE) 06/27/17 19:05 Urine Glucose (UA) Negative (NEGATIVE) 06/27/17 19:05 Urine Ketones Negative (NEGATIVE) 06/27/17 19:05 Urine Blood Negative (NEGATIVE) 06/27/17 19:05 Urine Nitrite Negative (NEGATIVE) 06/27/17 19:05 Urine Bilirubin Negative (NEGATIVE) 06/27/17 19:05 Urine Urobilinogen Negative mg/dL (0.2-1.0) 06/27/17 19:05 Ur Leukocyte Esterase Negative (NEGATIVE) 06/27/17 19:05 RPR Titer Nonreactive (NONREACTIVE) 06/28/17 07:00 labs noted Assessment: 06/29/17 13:17 Withdrawal sx. Plan: Continue detox
[2017-06-29] MEDS: diazePAM 5 MG TABLET PO PRN ×2 (17:12→22:36)
[2017-06-29] MEDS: CYCLOBENZAPRINE HCL 10 MG TABLET (FP) PO PRN (20:36)
[2017-06-29] MEDS: THIAMINE HCL 100 MG TABLET (FP) PO SCH (22:36)
[2017-06-29] MEDS: diphenhydrAMINE HCL 50 MG CAPSULE PO PRN (22:36)
[2017-06-29] MEDS: ACETAMINOPHEN 325 MG TABLET (FP) PO PRN (22:37)
[2017-06-30] MEDS: CYCLOBENZAPRINE HCL 10 MG TABLET (FP) PO PRN ×2 (07:29→20:55)
[2017-06-30] MEDS: diazePAM 5 MG TABLET PO PRN (07:29)
[2017-06-30] MEDS ORDERED: METHADONE HCL 5 MG TABLET (FOR DETOX USE ONLY) PO ONE (10:00)
[2017-06-30] MEDS ORDERED: METHADONE HCL 10 MG TABLET (FOR DETOX USE ONLY) PO ONE (10:00)
--- NOTE | 2017-06-30 10:40 | PN ---
BHS Progress Note (SOAP) Subjective: Sweating,interrupted sleep,restless Objective: 06/30/17 10:39 Vital Signs - 8 hr 06/30/17 06/30/17 06/30/17 06:00 07:34 10:00 Temperature 98.1 F 96.4 F L Pulse Rate 68 90 94 H Respiratory 18 18 18 Rate Blood Pressure 148/98 139/88 130/93 Laboratory Last Values WBC 7.3 K/mm3 (4.0-10.0) 06/28/17 07:00 RBC 4.79 M/mm3 (4.00-5.60) 06/28/17 07:00 Hgb 14.0 GM/dL (11.7-16.9) 06/28/17 07:00 Hct 42.1 % (35.4-49) 06/28/17 07:00 MCV 87.9 fl (80-96) 06/28/17 07:00 MCH 29.1 pg (25.7-33.7) 06/28/17 07:00 MCHC 33.1 g/dl (32.0-35.9) 06/28/17 07:00 RDW 14.1 % (11.9-15.9) 06/28/17 07:00 Plt Count 242 K/MM3 (134-434) 06/28/17 07:00 MPV 8.5 fl (7.5-11.1) 06/28/17 07:00 Sodium 141 mmol/L (136-145) 06/28/17 07:00 Potassium 4.6 mmol/L (3.5-5.1) 06/28/17 07:00 Chloride 105 mmol/L (98-107) 06/28/17 07:00 Carbon Dioxide 30 mmol/L (21-32) 06/28/17 07:00 Anion Gap 6 (8-16) L 06/28/17 07:00 BUN 16 mg/dL (7-18) 06/28/17 07:00 Creatinine 1.0 mg/dL (0.7-1.3) 06/28/17 07:00 Creat Clearance w eGFR > 60 (>60) 06/28/17 07:00 Random Glucose 76 mg/dL (74-106) D 06/28/17 07:00 Calcium 9.2 mg/dL (8.5-10.1) 06/28/17 07:00 Total Bilirubin 0.5 mg/dL (0.2-1.0) D 06/28/17 07:00 AST 40 U/L (15-37) H D 06/28/17 07:00 ALT 52 U/L (12-78) D 06/28/17 07:00 Alkaline Phosphatase 182 U/L (45-117) H 06/28/17 07:00 Total Protein 7.4 g/dl (6.4-8.2) 06/28/17 07:00 Albumin 3.3 g/dl (3.4-5.0) L 06/28/17 07:00 Urine Color Ltyellow 06/27/17 19:05 Urine Appearance Clear 06/27/17 19:05 Urine pH 5.0 (5.0-8.0) 06/27/17 19:05 Ur Specific [place] <= 1.005 (1.005-1.025) 06/27/17 19:05 Urine Protein Negative (NEGATIVE) 06/27/17 19:05 Urine Glucose (UA) Negative (NEGATIVE) 06/27/17 19:05 Urine Ketones Negative (NEGATIVE) 06/27/17 19:05 Urine Blood Negative (NEGATIVE) 06/27/17 19:05 Urine Nitrite Negative (NEGATIVE) 06/27/17 19:05 Urine Bilirubin Negative (NEGATIVE) 06/27/17 19:05 Urine Urobilinogen Negative mg/dL (0.2-1.0) 06/27/17 19:05 Ur Leukocyte Esterase Negative (NEGATIVE) 06/27/17 19:05 RPR Titer Nonreactive (NONREACTIVE) 06/28/17 07:00 labs noted Assessment: 06/30/17 10:39 Withdrawal sx. Plan: Continue detox
[2017-06-30] MEDS: NICOTINE 21 MG/24 HOURS TOPICAL PATCH TD SCH (11:04)
[2017-06-30] MEDS: PRENATAL VITAMINS W/ FOLIC ACID TABLET (FP) PO SCH (11:04)
[2017-06-30] MEDS: cloNIDine HCL 0.1 MG TABLET PO SCH ×2 (11:04→23:46)
[2017-06-30] MEDS: IBUPROFEN 600 MG TABLET (FP) PO PRN ×2 (11:06→20:56)
[2017-06-30] MEDS: diphenhydrAMINE HCL 50 MG CAPSULE PO PRN (20:55)
[2017-06-30] MEDS: THIAMINE HCL 100 MG TABLET (FP) PO SCH ×2 (20:56→23:47)
[2017-07-01] MEDS ORDERED: METHADONE HCL 5 MG TABLET (FOR DETOX USE ONLY) PO ONE (06:00)
[2017-07-01 06:31] VITALS: BP 137/87; PULSE 90; TEMP 97.2
--- NOTE | 2017-07-01 07:52 | DS ---
[facility] Detox Discharge Summary Admission Date: 06/27/17 Discharge Date: 07/01/17 - History Present History: Opioid Dependence Additional Comments: follow up with after care program as arrangement Pertinent Past History: hepatitis c nicotine dependence neck pain anxiety and depression - Physical Exam Results Vital Signs: Vital Signs Temperature 97.2 F L 07/01/17 06:00 Pulse Rate 90 07/01/17 06:00 Respiratory Rate 18 07/01/17 06:00 Blood Pressure 137/87 07/01/17 06:00 O2 Sat by Pulse Oximetry (%) Pertinent Admission Physical Exam Findings: withdrawal symptom - Treatment Hospital Course: Detox Protocol Followed, Detoxed Safely, Responded well, Discharged Condition Good Patient has Accepted a Rehab Referral to: declined - Medication Discharge Medications: Ambulatory Orders NK [No Known Home Medication] 05/22/16 - Diagnosis (1) Opioid dependence with withdrawal Status: Acute (2) Anxiety and depression Status: Acute (3) Hepatitis C Status: Chronic (4) History of tonsillectomy Status: Chronic (5) Nicotine dependence Status: Chronic Qualifiers: Nicotine product type: cigarettes Substance use status: uncomplicated Qualified Code(s): F17.210 - Nicotine dependence, cigarettes, uncomplicated (6) Neck pain Status: Acute - AMA Did Patient Leave Against Medical Advice: No
[2017-07-01] MEDS ORDERED: METHADONE HCL 10 MG TABLET (FOR DETOX USE ONLY) PO ONE (10:00)
[2017-07-02] MEDS ORDERED: METHADONE HCL 5 MG TABLET (FOR DETOX USE ONLY) PO ONE (06:00)
== END 2017-07-01 06:18 | disposition home or self-care (01) | DRG 773 ==
LOC: YASAS 16:55 → Y6N 17:30
PROVIDERS: ADMIT Internal Medicine; ATTEND Internal Medicine
PROC: HZ2ZZZZ Detoxification Services for Substance Abuse Treatment (ICD-10-PCS; principal; 2017-06-27)
DX: F11.23 Opioid dependence with withdrawal (principal); F17.210 Nicotine dependence, cigarettes, uncomplicated; F41.8 Other specified anxiety disorders; B18.2 Chronic viral hepatitis C; M54.2 Cervicalgia
CPT/HCPCS: 36415; 80053; 81003; 85027; 86593; 93005; 93010

== ENCOUNTER 2017-08-08 10:44 | Inpatient (IN) | payer OTHER ==
[2017-08-08 11:53] VITALS: BMI 28.4
--- NOTE | 2017-08-08 14:59 | HP ---
COWS - Scale Resting Pulse: 0= ID 80 or Below Sweatin= Chills/Flushing Restless Observation: 3= Extraneous Movement Pupil Size: 0= Normal to Room Light Bone or Joint Aches: 4=Acute Joint/Muscle Pain Runny Nose/ Eye Tearin= Runny Nose/Eyes GI Upset > 30mins: 2= Nausea/Diarrhea (NAUSEA WITH NO VOMITING) Tremor Observation: 2= Slight Tremor Visible Yawning Observation: 1= 1-2x During Session Anxiety or Irritability: 2=Irritable/Anxious Goose Flesh Skin: 0=Smooth Skin COWS Score: 17 Admission ROS [facility] Chief Complaint: DETOX TX FOR HEROIN DEPENDENCE STATING " WANTS MEDICAL ASSISTANCE TO COME OFF THE DRUGS". Allergies/Adverse Reactions: Allergies Allergy/AdvReac Type Severity Reaction Status Date / Time No Known Allergies Allergy Verified 08/08/17 12:49 History of Present Illness: 47 Y/O MALE WITH A HX OF HEROIN DEPENDENCE SEEKING DETOX TX. PT HAS PREVIOUS EPISODES OF DRUG TREATMENT. PT STATES LONGEST PERIOD OF SOBRIETY OF 9 DAYS. Exam Limitations: No Limitations - Ebola screening Have you traveled outside of the country in the last 21 days: No Have you had contact with anyone from an Ebola affected area: No Have you been sick,other than usual withdrawal symptoms: No Do you have a fever: No - Review of Systems Constitutional: Chills, Night Sweats, Changes in sleep EENT: reports: Blurred Vision (WEARS READING GLASSES), Tearing, Nose Congestion , Dental Problems (PREVIOUS FILLINGS.) Respiratory: reports: Cough, Shortness of Breath (DUE TO "NOT HAVING THE DRUG- HEROIN".), Productive cough (YELLOWISH BROWN SPUTUM) Cardiac: reports: Lightheadedness GI: reports: Constipated, Diarrhea, Nausea, Vomiting, Indigestion, Abdominal cramping : reports: No Symptoms Reported Musculoskeletal: reports: Back Pain, Joint Pain, Muscle Pain Integumentary: reports: Bruising (LEFT ELBOW IVD INJ. SITE) Neuro: reports: Headache, Numbness (LAST THREE RIGHT FINGERS), Tingling, Tremors , Dizziness Endocrine: reports: No Symptoms Reported Hematology: reports: No Symptoms Reported Psychiatric: reports: Orientated x3, Anxious, Depressed Other Systems: Reviewed and Negative Patient History - Patient Medical History Hx Anemia: No Hx Asthma: No Hx Chronic Obstructive Pulmonary Disease (COPD): No Hx Cancer: No Hx Cardiac Disorders: No Hx Congestive Heart Failure: No Hx Hypertension: No (BP 146/102 TODAY -UNDIAGNOSED.) Hx Hypercholesterolemia: No Hx Pacemaker: No HX Cerebrovascular Accident: No Hx Seizures: No Hx Dementia: No Hx Diabetes: No Hx Gastrointestinal Disorders: Yes (HEARTBURN-ROLAIDS ON OCASSIONS) Hx Liver Disease: No Hx Genitourinary Disorders: No Hx Sexually Transmitted Disorders: No Hx Renal Disease (ESRD): No Hx Thyroid Disease: No Hx Human Immunodeficiency Virus (HIV): No ( NEGATIVE HX) Hx Hepatitis C: Yes (NO TREATMENT) Hx Depression: Yes (AND INSOMNIA- NO MEDS) Hx Suicide Attempt: No (DENIES) Hx Bipolar Disorder: No Hx Schizophrenia: No - Patient Surgical History Past Surgical History: Yes Hx Neurologic Surgery: No Hx Cataract Extraction: No Hx Cardiac Surgery: No Hx Lung Surgery: No Hx Breast Surgery: No Hx Breast Biopsy: No Hx Abdominal Surgery: No Hx Appendectomy: No Hx Cholecystectomy: No Hx Genitourinary Surgery: No Hx Orthopedic Surgery: No Other Surgical History: TONSILECTOMY @ 14 YEARS Anesthesia Reaction: No - PPD History Previous Implant?: Yes Documented Results: Negative w/proof Implanted On Prior [facility] Admission?: Yes Date: 06/29/17 Results: 0 mm PPD to be Administered?: No - Reproductive History Patient is a Female of Child Bearing Age (11 -55 yrs old): No (MALE) Patient : (N/A) - Smoking Cessation Smoking history: Current every day smoker Have you smoked in the past 12 months: Yes Aproximately how many cigarettes per day: 40 Cigars Per Day: 0 Hx Chewing Tobacco Use: No Initiated information on smoking cessation: Yes 'Breaking Loose' booklet given: 08/08/17 - Substance & Tx. History Hx Alcohol Use: Yes (WINE WITH DINNER ON OCASSION) Hx Substance Use: Yes (HEROIN/MARIJUANA(ON OCASSIONS)) Substance Use Type: Heroin, Marijuana (NOT ON REGULAR BASES--"ONCE A MONTH TO 4 TIMES A YEAR") Hx Substance Use Treatment: Yes (LAST TX AT [facility]-DETOX) - Substances Abused Heroin Route: Injection Frequency: Daily Amount used: 8 bags Age of first use: 44 Date of Last Use: 08/07/17 Marijuana Route: Smoking Frequency: 1-2 times per week Amount used: $5 Age of first use: 13 Date of Last Use: 08/07/17 Family Disease History - Family Disease History Family History: Unable to Obtain ("I DON'T KNOW. DON'T HAVE ANY FAMILY".) Admission Physical Exam [facility] - Vital Signs Vital Signs: Vital Signs - 24 hr 08/08/17 11:50 Temperature 97.1 F L Pulse Rate 80 Respiratory 20 Rate Blood Pressure 146/102 - Physical General Appearance: Yes: Moderate Distress, Anxious HEENTM: Yes: EOMI, Normocephalic, ANDREW, Pharynx Normal, Nasal Congestion, Rhinorrhea Respiratory: Yes: Chest Non-Tender, Lungs Clear, Normal Breath Sounds, No Respiratory Distress Neck: Yes: No masses,lesions,Nodules, Supple, Trachea in good position Breast: Yes: Breast Exam Deferred Cardiology: Yes: Regular Rhythm, Regular Rate, S1, S2 Abdominal: Yes: Normal Bowel Sounds, Non Tender, Flat, Soft Genitourinary: Yes: Other (N/C) Back: Yes: Within Normal Limits Musculoskeletal: Yes: full range of Motion, Gait Steady Extremities: Yes: Normal Range of Motion, Non-Tender Neurological: Yes: grip wrapper II-XII NML intact, Fully Oriented, Alert, Motor Strength 5/5 Integumentary: Yes: Dry, Warm, Track Calderon (LEFT ANTECUBITAL SPACE--NO REDNESS OR SWELLING.), Other (GENERALIZED MULTIPLE TATOOS ON LOWER EXTREMITIES/BACK/ARMS /ABDOMEN) Lymphatic: Yes: Within Normal Limits - Diagnostic (1) Opioid dependence with withdrawal Current Visit: Yes Status: Acute (2) Hepatitis C Current Visit: Yes Status: Chronic Qualifiers: Viral hepatitis chronicity: chronic (3) History of tonsillectomy Current Visit: Yes Status: Resolved (4) Insomnia Current Visit: Yes Status: Chronic (5) Nicotine dependence Current Visit: Yes Status: Acute Qualifiers: Nicotine product type: cigarettes Substance use status: in withdrawal Qualified Code(s): F17.213 - Nicotine dependence, cigarettes, with withdrawal Cleared for Admission [facility] - Detox or Rehab [facility] Level of Care: Medically Managed Detox Regimen/Protocol: Methadone [facility] Breath Alcohol Content Breath Alcohol Content: 0 Urine Drug Screen - Results Drug Screen Negative: No Urine Drug Screen Results: THC-Marijuana, OPI-Opiates, OXY-Oxycodone
[2017-08-08] MEDS ORDERED: diphenhydrAMINE HCL 50 MG CAPSULE PO PRN (15:29)
[2017-08-08] MEDS ORDERED: IBUPROFEN 400 MG TABLET (FP) PO PRN (15:29)
[2017-08-08] MEDS ORDERED: P-EPHED 60MG/TRIPROLIDI 2.5MG TABLET PO PRN (15:29)
[2017-08-08] MEDS ORDERED: MAGNESIUM CITRATE 300 ML BOTTLE PO PRN (15:29)
[2017-08-08] MEDS ORDERED: ACETAMINOPHEN 325 MG TABLET (FP) PO PRN (15:29)
[2017-08-08] MEDS ORDERED: NICOTINE POLACRILEX 4 MG GUM BC PRN (15:29)
[2017-08-08] MEDS ORDERED: MAGNESIUM HYDROX 2400MG/30ML ORAL SUSPENSION 30 ML CUP PO PRN (15:29)
[2017-08-08] MEDS ORDERED: LOPERAMIDE HCL 2 MG CAPSULE PO PRN (15:29)
[2017-08-08] MEDS ORDERED: MAG HYDROX/AL HYDROX/SIMETH 30 ML UNIT-DOSE CUP PO PRN (15:29)
[2017-08-08] MEDS ORDERED: guaiFENesin/D-METHORPHAN HB 10 ML UNIT-DOSE CUPS PO PRN (15:29)
[2017-08-08] MEDS ORDERED: MENTHOL/PHENOL 1 EACH UD MM PRN (15:29)
[2017-08-08 16:09] LABS: MCHC 33.8 g/dl (32.0-35.9); MEAN CELL VOLUME 88.9 fl (80-96); MEAN PLT VOLUME 8.7 fl (7.5-11.1); PLATELET COUNT 276 K/MM3 (134-434); RDW 14.3 % (11.9-15.9); WHITE BLOOD COUNT 8.7 K/mm3 (4.0-10.0)
[2017-08-08 16:32] LABS: ALBUMIN 3.5 g/dl (3.4-5.0); ANION GAP 3 (8-16); CALCIUM 9.1 mg/dL (8.5-10.1); CO2 32 mmol/L (21-32); GLUCOSE,RANDOM 83 mg/dL (74-106); SGOT/AST 53 U/L (15-37); SGPT/ALT 65 U/L (12-78)
[2017-08-08 16:33] LABS: ALK PHOS 186 U/L (45-117); BILIRUBIN,TOTAL 0.3 mg/dL (0.2-1.0); TOT PROT 7.7 g/dl (6.4-8.2)
[2017-08-08] MEDS ORDERED: METHADONE HCL 10 MG TABLET (FOR DETOX USE ONLY) PO ONE ×2 (17:00→23:00)
[2017-08-08] MEDS: diazePAM 5 MG TABLET PO PRN ×2 (18:07→22:14)
[2017-08-08] MEDS: NICOTINE 21 MG/24 HOURS TOPICAL PATCH TD SCH (18:08)
[2017-08-08] MEDS: THIAMINE HCL 100 MG TABLET (FP) PO SCH (22:14)
[2017-08-08] MEDS: cloNIDine HCL 0.1 MG TABLET PO SCH (22:14)
[2017-08-08 23:43] LABS: URINE APPEARANCE CLEAR; URINE BILIRUBIN NEGATIVE (NEGATIVE); URINE BLOOD NEGATIVE (NEGATIVE); URINE COLOR YELLOW; URINE GLUCOSE (UA) NEGATIVE (NEGATIVE); URINE KETONE NEGATIVE (NEGATIVE); URINE LEUK ESTERASE NEGATIVE (NEGATIVE); URINE NITRITE NEGATIVE (NEGATIVE); URINE PROTEIN NEGATIVE (NEGATIVE); URINE UROBILINOGEN NEGATIVE mg/dL (0.2-1.0)
[2017-08-09] MEDS: diazePAM 5 MG TABLET PO PRN ×3 (05:33→22:01)
--- NOTE | 2017-08-09 09:22 | EKG ---
Test Reason : Blood Pressure : / mmHG Vent. Rate : 081 BPM Atrial Rate : 081 BPM P-R Int : 136 ms QRS Dur : 088 ms QT Int : 392 ms P-R-T Axes : 065 067 069 degrees QTc Int : 455 ms NORMAL SINUS RHYTHM NORMAL ECG WHEN COMPARED WITH ECG OF 27-JUN-2017 18:28, NO SIGNIFICANT CHANGE WAS FOUND Confirmed by NAYELI MUÑIZ MD ([id number]) on 08/09/2017 9:22:25 AM Referred By: Confirmed By:NAYELI MUÑIZ MD
[2017-08-09] MEDS ORDERED: METHADONE HCL 10 MG TABLET (FOR DETOX USE ONLY) PO ONE (10:00)
[2017-08-09] MEDS: NICOTINE 21 MG/24 HOURS TOPICAL PATCH TD SCH (10:05)
[2017-08-09] MEDS: PRENATAL VITAMINS W/ FOLIC ACID TABLET (FP) PO SCH (10:06)
[2017-08-09] MEDS: cloNIDine HCL 0.1 MG TABLET PO SCH ×2 (10:06→22:01)
--- NOTE | 2017-08-09 10:42 | PN ---
BHS COWS - Scale Resting Pulse: 1= ME 81-100 Sweatin= Chills/Flushing Restless Observation: 3= Extraneous Movement Pupil Size: 0= Normal to Room Light Bone or Joint Aches: 4=Acute Joint/Muscle Pain Runny Nose/ Eye Tearin= Nasal Congestion GI Upset > 30mins: 1= Stomach Cramp Tremor Observation of Outstretched Hands: 1= Tremor [place], Not Seen Yawning Observation: 2= >3x During Session Anxiety or Irritability: 2=Irritable/Anxious Goose Flesh Skin: 0=Smooth Skin COWS Score: 16 S Progress Note (SOAP) Subjective: ANXIETY,HOT/COLD FLASHES. Objective: 08/09/17 10:41 Vital Signs 08/09/17 08/09/17 08/09/17 03:30 06:06 09:49 Temperature 96.9 F L 98.6 F Pulse Rate 84 73 Respiratory 18 18 18 Rate Blood Pressure 124/62 112/76 Laboratory Last Values WBC 8.7 K/mm3 (4.0-10.0) 08/08/17 13:00 RBC 4.92 M/mm3 (4.00-5.60) 08/08/17 13:00 Hgb 14.7 GM/dL (11.7-16.9) 08/08/17 13:00 Hct 43.7 % (35.4-49) 08/08/17 13:00 MCV 88.9 fl (80-96) 08/08/17 13:00 MCH 30.0 pg (25.7-33.7) 08/08/17 13:00 MCHC 33.8 g/dl (32.0-35.9) 08/08/17 13:00 RDW 14.3 % (11.9-15.9) 08/08/17 13:00 Plt Count 276 K/MM3 (134-434) 08/08/17 13:00 MPV 8.7 fl (7.5-11.1) 08/08/17 13:00 Sodium 138 mmol/L (136-145) 08/08/17 13:00 Potassium 4.6 mmol/L (3.5-5.1) 08/08/17 13:00 Chloride 103 mmol/L (98-107) 08/08/17 13:00 Carbon Dioxide 32 mmol/L (21-32) 08/08/17 13:00 Anion Gap 3 (8-16) L 08/08/17 13:00 BUN 17 mg/dL (7-18) 08/08/17 13:00 Creatinine 1.0 mg/dL (0.7-1.3) 08/08/17 13:00 Creat Clearance w eGFR > 60 (>60) 08/08/17 13:00 Random Glucose 83 mg/dL (74-106) 08/08/17 13:00 Calcium 9.1 mg/dL (8.5-10.1) 08/08/17 13:00 Total Bilirubin 0.3 mg/dL (0.2-1.0) D 08/08/17 13:00 AST 53 U/L (15-37) H D 08/08/17 13:00 ALT 65 U/L (12-78) D 08/08/17 13:00 Alkaline Phosphatase 186 U/L (45-117) H 08/08/17 13:00 Total Protein 7.7 g/dl (6.4-8.2) 08/08/17 13:00 Albumin 3.5 g/dl (3.4-5.0) 08/08/17 13:00 Urine Color Yellow 08/08/17 15:44 Urine Appearance Clear 08/08/17 15:44 Urine pH 5.0 (5.0-8.0) 08/08/17 15:44 Urine Protein Negative (NEGATIVE) 08/08/17 15:44 Urine Glucose (UA) Negative (NEGATIVE) 08/08/17 15:44 Urine Ketones Negative (NEGATIVE) 08/08/17 15:44 Urine Blood Negative (NEGATIVE) 08/08/17 15:44 Urine Nitrite Negative (NEGATIVE) 08/08/17 15:44 Urine Bilirubin Negative (NEGATIVE) 08/08/17 15:44 Urine Urobilinogen Negative mg/dL (0.2-1.0) 08/08/17 15:44 RPR Titer Nonreactive (NONREACTIVE) 08/08/17 13:00 Assessment: 08/09/17 10:42 WITHDRAWAL SX Plan: CONTINUE DETOX
--- NOTE | 2017-08-09 11:19 | CONSULT ---
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 He started using heroin at age 44, consumes 8 bags daily. Last used on 08/07/17. He started smoking marijuana at age 13, consumes $5 worth 1-2 times weekly. Last smoked on 08/07/17 Medical History: Significant for history of Hep C, GERD and S/P Tonsillectomy. Smokes cigarettes 40 cigarettes daily Psychiatric History: Reports seeing a therapist for personal issues in his life. Told contract technical writer that his addiction stemmed from those issues. Denies previous psychiatric hospitalization or suicidal attempt. At present, reports experiencing difficulty to sleep Physical/Sexual Abuse/Trauma History: Denies Mental Status Exam - Mental Status Exam Alert and Oriented to: Time, Place, Person Cognitive Function: Fair Patient Appearance: Well Groomed Mood: Hopeful, Euthymic Affect: Appropriate Patient Behavior: Cooperative Speech Pattern: Clear Voice Loudness: Normal Thought Process: Intact, Goal Oriented Thought Disorder: Not Present Hallucinations: Denies Suicidal Ideation: Denies Homicidal Ideation: Denies Insight/Judgement: Poor Sleep: Poorly Appetite: Good Muscle strength/Tone: Normal Gait/Station: Normal Psychiatric Findings - Problem List ([place] 1, 2,3) (1) Substance-induced sleep disorder Current Visit: No Status: Acute (2) Opioid dependence with withdrawal Current Visit: Yes Status: Acute (3) Cannabis dependence Current Visit: Yes Status: Acute (4) Nicotine dependence Current Visit: Yes Status: Acute Qualifiers: Nicotine product type: cigarettes Substance use status: in withdrawal Qualified Code(s): F17.213 - Nicotine dependence, cigarettes, with withdrawal (5) Hepatitis C Current Visit: Yes Status: Chronic Qualifiers: Viral hepatitis chronicity: chronic (6) History of tonsillectomy Current Visit: Yes Status: Resolved - Initial Treatment Plan Initial Treatment Plan: 1) Start Ambien 10 mg po HS prn for insomia. 2) Continue inpatient detoxification
[2017-08-09] MEDS ORDERED: ZOLPIDEM TARTRATE 10 MG TABLET (PARK CARE ONLY) PO PRN (22:00)
[2017-08-09] MEDS: THIAMINE HCL 100 MG TABLET (FP) PO SCH (22:01)
[2017-08-10] MEDS: diazePAM 5 MG TABLET PO PRN (06:06)
[2017-08-10 09:42] VITALS: BP 133/50; PULSE 79; TEMP 98
[2017-08-10] MEDS ORDERED: METHADONE HCL 5 MG TABLET (FOR DETOX USE ONLY) PO ONE (10:00)
[2017-08-10] MEDS: PRENATAL VITAMINS W/ FOLIC ACID TABLET (FP) PO SCH (10:08)
[2017-08-10] MEDS: NICOTINE 21 MG/24 HOURS TOPICAL PATCH TD SCH (10:09)
[2017-08-10] MEDS: cloNIDine HCL 0.1 MG TABLET PO SCH (10:10)
--- NOTE | 2017-08-10 14:00 | DS ---
[facility] Detox Discharge Summary Admission Date: 08/08/17 Discharge Date: 08/10/17 - History Present History: Cannabis Dependence, Opioid Dependence Additional Comments: PATIENT REPORTS THAT PERSONAL ISSUE CAME UP AND THAT HE DOES NOT WISH TO STAY TO COMPLETE DETOX REGIMEN. PATIENT ADVISED TO GO IMMEDIATELY TO NEAREST ER SHOULD ANY INTOLERABLE DETOX SYMPTOMS DEVELOP AT ANY TIME. PATIENT LEFT DETOX UNIT IN STABLE MEDICAL CONDITION. Pertinent Past History: Nicotine Dependence, Heartburn, Hep C, Insomnia. - Physical Exam Results Vital Signs: Vital Signs Temperature 98.0 F 08/10/17 09:41 Pulse Rate 79 08/10/17 09:41 Respiratory Rate 18 08/10/17 09:41 Blood Pressure 133/50 08/10/17 09:41 O2 Sat by Pulse Oximetry (%) Pertinent Admission Physical Exam Findings: WITHDRAWAL SYMPTOMS. Laboratory Tests 08/08/17 08/08/17 08/08/17 13:00 13:00 13:00 WBC 8.7 RBC 4.92 Hgb 14.7 Hct 43.7 MCV 88.9 MCH 30.0 MCHC 33.8 RDW 14.3 Plt Count 276 MPV 8.7 Sodium 138 Potassium 4.6 Chloride 103 Carbon Dioxide 32 Anion Gap 3 L BUN 17 Creatinine 1.0 Creat Clearance w eGFR > 60 Random Glucose 83 Calcium 9.1 Total Bilirubin 0.3 D AST 53 H D ALT 65 D Alkaline Phosphatase 186 H Total Protein 7.7 Albumin 3.5 Urine Color Urine Appearance Urine pH Urine Protein Urine Glucose (UA) Urine Ketones Urine Blood Urine Nitrite Urine Bilirubin Urine Urobilinogen RPR Titer Nonreactive 08/08/17 15:44 WBC RBC Hgb Hct MCV MCH MCHC RDW Plt Count MPV Sodium Potassium Chloride Carbon Dioxide Anion Gap BUN Creatinine Creat Clearance w eGFR Random Glucose Calcium Total Bilirubin AST ALT Alkaline Phosphatase Total Protein Albumin Urine Color Yellow Urine Appearance Clear Urine pH 5.0 Urine Protein Negative Urine Glucose (UA) Negative Urine Ketones Negative Urine Blood Negative Urine Nitrite Negative Urine Bilirubin Negative Urine Urobilinogen Negative RPR Titer LABS NOTED. - Treatment Hospital Course: Detoxed Safely - Medication Discharge Medications: Ambulatory Orders NK [No Known Home Medication] 05/22/16 - Diagnosis (1) Cannabis dependence Current Visit: Yes Status: Acute (2) Nicotine dependence Current Visit: Yes Status: Chronic Qualifiers: Nicotine product type: cigarettes Substance use status: in withdrawal Qualified Code(s): F17.213 - Nicotine dependence, cigarettes, with withdrawal (3) Opioid dependence with withdrawal Current Visit: Yes Status: Acute (4) Hepatitis C Current Visit: Yes Status: Chronic Qualifiers: Viral hepatitis chronicity: chronic Hepatic coma status: without hepatic coma Qualified Code(s): B18.2 - Chronic viral hepatitis C (5) History of tonsillectomy Current Visit: Yes Status: Resolved (6) Substance-induced sleep disorder Current Visit: No Status: Acute - AMA Did Patient Leave Against Medical Advice: Yes (PT HAD PERSONAL ISSUE AND DID NOT WISH TO STAY TO COMPLETE DETOX REGIMEN.)
[2017-08-11] MEDS ORDERED: METHADONE HCL 5 MG TABLET (FOR DETOX USE ONLY) PO ONE (10:00)
[2017-08-12] MEDS ORDERED: METHADONE HCL 10 MG TABLET (FOR DETOX USE ONLY) PO ONE (10:00)
[2017-08-13] MEDS ORDERED: METHADONE HCL 5 MG TABLET (FOR DETOX USE ONLY) PO ONE (06:00)
== END 2017-08-10 13:20 | disposition left against medical advice (07) | DRG 770 ==
LOC: YASAS 10:44 → Y3N 16:35
PROVIDERS: ADMIT Internal Medicine; ATTEND Internal Medicine
PROC: HZ2ZZZZ Detoxification Services for Substance Abuse Treatment (ICD-10-PCS; principal; 2017-08-08)
DX: F11.23 Opioid dependence with withdrawal (principal); F12.20 Cannabis dependence, uncomplicated; F17.213 Nicotine dependence, cigarettes, with withdrawal; F19.282 Other psychoactive substance dependence with psychoactive substance-induced sleep disorder; B18.2 Chronic viral hepatitis C; G47.00 Insomnia, unspecified; R03.0 Elevated blood-pressure reading, without diagnosis of hypertension
CPT/HCPCS: 36415; 80053; 81003; 85027; 86593; 93005; 93010

== ENCOUNTER 2017-11-12 09:56 | Inpatient (IN) | payer OTHER ==
[2017-11-12 10:26] VITALS: BMI 26.4
--- NOTE | 2017-11-12 13:24 | HP ---
COWS - Scale Resting Pulse: 1= [place] 81-100 Sweatin= Chills/Flushing Restless Observation: 3= Extraneous Movement Pupil Size: 2= Moderately Dilated Bone or Joint Aches: 4=Acute Joint/Muscle Pain Runny Nose/ Eye Tearin= Runny Nose/Eyes GI Upset > 30mins: 2= Nausea/Diarrhea Tremor Observation: 2= Slight Tremor Visible Yawning Observation: 2= >3x During Session Anxiety or Irritability: 2=Irritable/Anxious Goose Flesh Skin: 0=Smooth Skin COWS Score: 21 Admission [facility] - HPI Chief Complaint: WITHDRAWAL SX FROM HEROIN Allergies/Adverse Reactions: Allergies Allergy/AdvReac Type Severity Reaction Status Date / Time No Known Allergies Allergy Verified 11/12/17 10:33 History of Present Illness: 47 Y/O MALE WITH A HX HEROIN DEPENDENCE SEEKING DETOX [place]. Exam Limitations: No Limitations - Ebola screening Have you traveled outside of the country in the last 21 days: No Have you had contact with anyone from an Ebola affected area: No Have you been sick,other than usual withdrawal symptoms: No Do you have a fever: No - Review of Systems Constitutional: Chills, Loss of Appetite, Night Sweats, Changes in sleep EENT: reports: Blurred Vision, Tearing, Nose Congestion, Dental Problems Respiratory: reports: Shortness of Breath Cardiac: reports: Lightheadedness GI: reports: Constipated, Diarrhea, Nausea, Poor Appetite, Poor Fluid Intake, Vomiting : reports: No Symptoms Reported Musculoskeletal: reports: Back Pain, Joint Pain, Muscle Pain Integumentary: reports: Bruising Neuro: reports: Headache, Numbness, Tingling, Unsteady Gait, Dizziness Endocrine: reports: No Symptoms Reported Hematology: reports: No Symptoms Reported Psychiatric: reports: Orientated x3 Patient History - Patient Medical History Hx Anemia: No Hx Asthma: No Hx Chronic Obstructive Pulmonary Disease (COPD): No Hx Cancer: No Hx Cardiac Disorders: No Hx Congestive Heart Failure: No Hx Hypertension: No Hx Hypercholesterolemia: No Hx Pacemaker: No HX Cerebrovascular Accident: No Hx Seizures: No Hx Dementia: No Hx Diabetes: No Hx Gastrointestinal Disorders: No Hx Liver Disease: No Hx Genitourinary Disorders: No Hx Sexually Transmitted Disorders: No Hx Renal Disease (ESRD): No Hx Thyroid Disease: No Hx Human Immunodeficiency Virus (HIV): No ( NEGATIVE HX) Hx Hepatitis C: Yes (NO TREATMENT YET) Hx Depression: No Hx Suicide Attempt: No (DENIES) Hx Bipolar Disorder: No Hx Schizophrenia: No - Patient Surgical History Past Surgical History: Yes Hx Neurologic Surgery: No Hx Cataract Extraction: No Hx Cardiac Surgery: No Hx Lung Surgery: No Hx Breast Surgery: No Hx Breast Biopsy: No Hx Abdominal Surgery: No Hx Appendectomy: No Hx Cholecystectomy: No Hx Genitourinary Surgery: No Hx Section: No Hx Orthopedic Surgery: No Other Surgical History: TONSILECTOMY @ 12 YEARS Anesthesia Reaction: No - PPD History Previous Implant?: Yes Documented Results: Negative w/proof Implanted On Prior [facility] Admission?: Yes Date: 06/29/17 Results: 0 mm PPD to be Administered?: No - Reproductive History Patient is a Female of Child Bearing Age (11 -55 yrs old): No (MALE) - Smoking Cessation Smoking history: Current every day smoker Have you smoked in the past 12 months: Yes Aproximately how many cigarettes per day: 20 Cigars Per Day: 0 Hx Chewing Tobacco Use: No Initiated information on smoking cessation: Yes 'Breaking Loose' booklet given: 11/12/17 - Substance & Tx. History Hx Alcohol Use: No (DENIES) Hx Substance Use: Yes (HEROIN/MARIJUANA) Substance Use Type: Heroin, Marijuana Hx Substance Use Treatment: Yes ([facility] DETOX) - Substances Abused Heroin Route: Injection Frequency: Daily Amount used: 6 bags Age of first use: 43 Date of Last Use: 11/11/17 Marijuana/Hashish Route: Smoking Frequency: 1-3 times last 30 days Amount used: 1 INH Age of first use: 12 Date of Last Use: 11/11/17 Family Disease History - Family Disease History Family History: Denies Admission Physical Exam BHS - Vital Signs Vital Signs: Vital Signs - 24 hr 11/12/17 10:24 Temperature 96.9 F L Pulse Rate 98 H Respiratory 18 Rate Blood Pressure 151/77 - Physical General Appearance: Yes: Moderate Distress, Irritable, Anxious HEENTM: Yes: Normocephalic, Pharynx Normal Respiratory: Yes: Chest Non-Tender, Lungs Clear, Normal Breath Sounds, No Respiratory Distress Neck: Yes: No masses,lesions,Nodules Breast: Yes: Breast Exam Deferred Cardiology: Yes: Regular Rhythm, Regular Rate, S1, S2 Abdominal: Yes: Normal Bowel Sounds, Non Tender, Flat, Soft Genitourinary: Yes: Other (N/C) Musculoskeletal: Yes: Gait Steady Extremities: Yes: Normal Range of Motion, Non-Tender 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, Fully Oriented, Alert, Motor Strength 5/5 Integumentary: Yes: Dry, Warm, Track Calderon (LEFT ELBOW--NO REDNESS OR SWELLING.) Lymphatic: Yes: Adenopathy - Diagnostic (1) Cannabis dependence Current Visit: Yes Status: Acute (2) Opioid dependence with withdrawal Current Visit: Yes Status: Acute (3) Hepatitis C Current Visit: Yes Status: Chronic Qualifiers: Viral hepatitis chronicity: chronic Hepatic coma status: without hepatic coma Qualified Code(s): B18.2 - Chronic viral hepatitis C (4) Nicotine dependence Current Visit: Yes Status: Acute Qualifiers: Nicotine product type: cigarettes Substance use status: in withdrawal Qualified Code(s): F17.213 - Nicotine dependence, cigarettes, with withdrawal Cleared for Admission [facility] - Detox or Rehab [facility] Level of Care: Medically Managed Detox Regimen/Protocol: Methadone [facility] Breath Alcohol Content Breath Alcohol Content: 0 Urine Drug Screen - Results Drug Screen Negative: No Urine Drug Screen Results: THC-Marijuana, OPI-Opiates
[2017-11-12] MEDS ORDERED: MAGNESIUM CITRATE 300 ML BOTTLE PO PRN (14:26)
[2017-11-12] MEDS ORDERED: MAGNESIUM HYDROX 2400MG/30ML ORAL SUSPENSION 30 ML CUP PO PRN (14:26)
[2017-11-12] MEDS ORDERED: NICOTINE POLACRILEX 4 MG GUM BUC PRN (14:26)
[2017-11-12] MEDS ORDERED: MAG HYDROX/AL HYDROX/SIMETH 30 ML UNIT-DOSE CUP PO PRN (14:26)
[2017-11-12] MEDS ORDERED: IBUPROFEN 400 MG TABLET (FP) PO PRN (14:26)
[2017-11-12] MEDS ORDERED: MENTHOL/PHENOL 1 EACH UD MM PRN (14:26)
[2017-11-12] MEDS ORDERED: ACETAMINOPHEN 325 MG TABLET (FP) PO PRN (14:26)
[2017-11-12] MEDS ORDERED: LOPERAMIDE HCL 2 MG CAPSULE PO PRN (14:26)
[2017-11-12] MEDS ORDERED: guaiFENesin/D-METHORPHAN HB 10 ML UNIT-DOSE CUPS PO PRN (14:26)
[2017-11-12] MEDS ORDERED: P-EPHED 60MG/TRIPROLIDI 2.5MG TABLET PO PRN (14:26)
[2017-11-12] MEDS ORDERED: METHADONE HCL 10 MG TABLET (FOR DETOX USE ONLY) PO ONE ×2 (14:26→23:00)
[2017-11-12] MEDS: NICOTINE 21 MG/24 HOURS TOPICAL PATCH TD SCH (15:27)
[2017-11-12] MEDS: diazePAM 5 MG TABLET PO PRN (15:27)
--- NOTE | 2017-11-12 15:38 | CONSULT ---
[facility] Psychiatric Consult - Data Date of interview: 11/12/17 Admission source: [facility] Identifying data: Pt. is a 47 year old male, , father of one, and currently employed.This is one of [facility] Pt. admitted to for heroin dependence. Substance Abuse History: Heroin- First used: 43 Frequency: daily Amount: 6 bags. Marijuana- Reports having 1 puff "once in a while". Cigarette- Current everyday smoker. 20 cigarettes per day. Medical History: Hep C Psychiatric History: Pt. denies h/o suicide attempts.Pt. reported seeing a therapist but no longer see's one. States seeing a therapist made the problems worst. Patient's current substance abuse is secondary to the issues that occured in his life 4 years ago (Marriage fell apart, mother , daughter no longer speaks to him). Pt. currently denies suicidal and homicidal ideation. Physical/Sexual Abuse/Trauma History: Denies. Mental Status Exam - Mental Status Exam Alert and Oriented to: Time, Place, Person Cognitive Function: Grossly Intact Patient Appearance: Unkempt Mood: Sad Affect: Mood Congruent Patient Behavior: Appropriate, Cooperative Speech Pattern: Appropriate Voice Loudness: Normal Thought Process: Goal Oriented Hallucinations: Denies Suicidal Ideation: Denies Homicidal Ideation: Denies Insight/Judgement: Poor Sleep: Poorly Appetite: Fair Muscle strength/Tone: Normal Gait/Station: Normal Psychiatric Findings - Problem List ([place] 1, 2,3) (1) Opioid dependence with withdrawal Current Visit: Yes Status: Acute (2) Nicotine dependence Current Visit: Yes Status: Acute Qualifiers: Nicotine product type: cigarettes Substance use status: in withdrawal Qualified Code(s): F17.213 - Nicotine dependence, cigarettes, with withdrawal (3) Insomnia Current Visit: Yes Status: Acute Qualifiers: Insomnia type: unspecified Qualified Code(s): G47.00 - Insomnia, unspecified (4) Anxiety and depression Current Visit: No Status: Suspected Comment: Self reports. (5) Substance induced mood disorder Current Visit: No Status: Suspected - Initial Treatment Plan Initial Treatment Plan: Psychoeducation provided. Detoxification in progress. Ambien 10mg qhs ordered for insomnia. Benefits and side effects (sleep walking) discussed. Verbal consent given. Will monitor patient.
[2017-11-12 17:32] LABS: MCH 29.1 pg (25.7-33.7); MCHC 33.4 g/dl (32.0-35.9); MEAN CELL VOLUME 87.1 fl (80-96); MEAN PLT VOLUME 9.2 fl (7.5-11.1); PLATELET COUNT 254 K/MM3 (134-434); RDW 14.2 % (11.9-15.9); WHITE BLOOD COUNT 12.2 K/mm3 (4.0-10.0)
[2017-11-12 17:36] LABS: URINE APPEARANCE CLEAR; URINE BILIRUBIN NEGATIVE (NEGATIVE); URINE BLOOD NEGATIVE (NEGATIVE); URINE COLOR AMBER; URINE GLUCOSE (UA) NEGATIVE (NEGATIVE); URINE KETONE NEGATIVE (NEGATIVE); URINE LEUK ESTERASE NEGATIVE (NEGATIVE); URINE NITRITE NEGATIVE (NEGATIVE); URINE PROTEIN NEGATIVE (NEGATIVE); URINE UROBILINOGEN 4.0 E.U/dl mg/dL (0.2-1.0)
[2017-11-12 17:48] LABS: ALBUMIN 4.1 g/dl (3.4-5.0); ANION GAP 12 (8-16); BILIRUBIN,TOTAL 1.1 mg/dL (0.2-1.0); CALCIUM 9.5 mg/dL (8.5-10.1); CO2 26 mmol/L (21-32); CREATININE 1.3 mg/dL (0.7-1.3); GLUCOSE,RANDOM 156 mg/dL (74-106); SGOT/AST 53 U/L (15-37); SGPT/ALT 86 U/L (12-78); TOT PROT 8.8 g/dl (6.4-8.2)
[2017-11-12 17:49] LABS: ALK PHOS 256 U/L (45-117)
[2017-11-12 20:44] LABS: URINE LEUK ESTERASE Negative (NEGATIVE)
[2017-11-12] MEDS: THIAMINE HCL 100 MG TABLET (FP) PO SCH (22:40)
[2017-11-12] MEDS: ZOLPIDEM TARTRATE 10 MG TABLET (PARK CARE ONLY) PO PRN (22:40)
--- NOTE | 2017-11-13 09:23 | PN ---
BHS COWS - Scale Resting Pulse: 1= [place] 81-100 Sweatin= Chills/Flushing Restless Observation: 1= Difficult to Sit Still Pupil Size: 1= Pupils >than Normal Bone or Joint Aches: 1= Mild Discomfort Runny Nose/ Eye Tearin= Nasal Congestion GI Upset > 30mins: 2= Nausea/Diarrhea Tremor Observation of Outstretched Hands: 2= Slight Tremor Visible Yawning Observation: 1= 1-2x During Session Anxiety or Irritability: 2=Irritable/Anxious Goose Flesh Skin: 3=Piloerection COWS Score: 16 BHS Progress Note (SOAP) Subjective: nausea, sweats, interrupted sleep, anxiety, tremors Objective: 11/13/17 09:22 Vital Signs - 24 hr 11/12/17 11/12/17 11/12/17 10:24 15:04 17:27 Temperature 96.9 F L 97.9 F 100.6 F H Pulse Rate 98 H 100 H 100 H Respiratory 18 20 20 Rate Blood Pressure 151/77 145/106 146/86 11/12/17 11/12/17 11/13/17 19:55 22:44 00:30 Temperature 98.2 F 98.4 F Pulse Rate 97 H Respiratory 18 18 Rate Blood Pressure 138/96 11/13/17 11/13/17 03:30 05:44 Temperature 97.7 F Pulse Rate 74 Respiratory 18 18 Rate Blood Pressure 125/82 Laboratory Tests 11/12/17 11/12/17 11/12/17 12:00 12:00 12:00 WBC 12.2 H D RBC 5.87 H Hgb 17.1 H D Hct 51.1 H D MCV 87.1 MCH 29.1 MCHC 33.4 RDW 14.2 Plt Count 254 MPV 9.2 Sodium 136 Potassium 3.7 Chloride 98 Carbon Dioxide 26 Anion Gap 12 BUN 20 H Creatinine 1.3 D Creat Clearance w eGFR 59.17 Random Glucose 156 H D Calcium 9.5 Total Bilirubin 1.1 H D AST 53 H ALT 86 H D Alkaline Phosphatase 256 H D Total Protein 8.8 H Albumin 4.1 Urine Color Urine Appearance Urine pH Ur Specific [place] Urine Protein Urine Glucose (UA) Urine Ketones Urine Blood Urine Nitrite Urine Bilirubin Urine Urobilinogen Ur Leukocyte Esterase RPR Titer Nonreactive 11/12/17 15:40 WBC RBC Hgb Hct MCV MCH MCHC RDW Plt Count MPV Sodium Potassium Chloride Carbon Dioxide Anion Gap BUN Creatinine Creat Clearance w eGFR Random Glucose Calcium Total Bilirubin AST ALT Alkaline Phosphatase Total Protein Albumin Urine Color Felicia Urine Appearance Clear Urine pH 5.0 Ur Specific [place] 1.029 Urine Protein Negative Urine Glucose (UA) Negative Urine Ketones Negative Urine Blood Negative Urine Nitrite Negative Urine Bilirubin Negative Urine Urobilinogen 4.0 e.u/dl Ur Leukocyte Esterase Negative RPR Titer Assessment: 11/13/17 09:22 withdrawal sx, cont detox elevated wbc most likely 2/2 withdrawal no sign of infection, fluids, encoruage ambualtion
[2017-11-13] MEDS ORDERED: METHADONE HCL 10 MG TABLET (FOR DETOX USE ONLY) PO ONE (10:00)
[2017-11-13] MEDS: PRENATAL VITAMINS W/ FOLIC ACID TABLET (FP) PO SCH (10:38)
[2017-11-13] MEDS: diazePAM 5 MG TABLET PO PRN ×3 (10:38→22:35)
[2017-11-13] MEDS: NICOTINE 21 MG/24 HOURS TOPICAL PATCH TD SCH (10:39)
--- NOTE | 2017-11-13 13:01 | EKG ---
Test Reason : Blood Pressure : / mmHG Vent. Rate : 082 BPM Atrial Rate : 082 BPM P-R Int : 130 ms QRS Dur : 088 ms QT Int : 402 ms P-R-T Axes : 066 071 068 degrees QTc Int : 469 ms NORMAL SINUS RHYTHM NORMAL ECG WHEN COMPARED WITH ECG OF 08-AUG-2017 18:01, NO SIGNIFICANT CHANGE WAS FOUND Confirmed by PAULINA CARTWRIGHT MD ([id number]) on 11/13/2017 1:00:40 PM Referred By: Confirmed By:PAULINA CARTWRIGHT MD
[2017-11-13] MEDS: ZOLPIDEM TARTRATE 10 MG TABLET (PARK CARE ONLY) PO PRN (22:35)
[2017-11-13] MEDS: THIAMINE HCL 100 MG TABLET (FP) PO SCH (22:35)
[2017-11-14] MEDS ORDERED: METHADONE HCL 5 MG TABLET (FOR DETOX USE ONLY) PO ONE (10:00)
[2017-11-14] MEDS: NICOTINE 21 MG/24 HOURS TOPICAL PATCH TD SCH (10:59)
[2017-11-14] MEDS: PRENATAL VITAMINS W/ FOLIC ACID TABLET (FP) PO SCH (10:59)
[2017-11-14] MEDS: diazePAM 5 MG TABLET PO PRN ×2 (11:06→19:01)
--- NOTE | 2017-11-14 15:12 | PN ---
BHS COWS - Scale Resting Pulse: 1= [place] 81-100 Sweatin= Chills/Flushing Restless Observation: 3= Extraneous Movement Pupil Size: 0= Normal to Room Light Bone or Joint Aches: 2= Severe Diffuse Aches Runny Nose/ Eye Tearin= Runny Nose/Eyes GI Upset > 30mins: 1= Stomach Cramp Tremor Observation of Outstretched Hands: 2= Slight Tremor Visible Yawning Observation: 1= 1-2x During Session Anxiety or Irritability: 2=Irritable/Anxious Goose Flesh Skin: 0=Smooth Skin COWS Score: 15 BHS Progress Note (SOAP) Subjective: Anxious, sweating, nausea, interrupted sleep Objective: 11/14/17 15:09 Last Vital Signs Temp Pulse Resp BP Pulse Ox 96.8 F L 92 H 20 146/99 11/14/17 13:55 11/14/17 13:55 11/14/17 13:55 11/14/17 13:55 Laboratory Tests 11/12/17 11/12/17 11/12/17 12:00 12:00 12:00 WBC 12.2 H D RBC 5.87 H Hgb 17.1 H D Hct 51.1 H D MCV 87.1 MCH 29.1 MCHC 33.4 RDW 14.2 Plt Count 254 MPV 9.2 Sodium 136 Potassium 3.7 Chloride 98 Carbon Dioxide 26 Anion Gap 12 BUN 20 H Creatinine 1.3 D Creat Clearance w eGFR 59.17 Random Glucose 156 H D Calcium 9.5 Total Bilirubin 1.1 H D AST 53 H ALT 86 H D Alkaline Phosphatase 256 H D Total Protein 8.8 H Albumin 4.1 Urine Color Urine Appearance Urine pH Ur Specific [place] Urine Protein Urine Glucose (UA) Urine Ketones Urine Blood Urine Nitrite Urine Bilirubin Urine Urobilinogen Ur Leukocyte Esterase RPR Titer Nonreactive 11/12/17 15:40 WBC RBC Hgb Hct MCV MCH MCHC RDW Plt Count MPV Sodium Potassium Chloride Carbon Dioxide Anion Gap BUN Creatinine Creat Clearance w eGFR Random Glucose Calcium Total Bilirubin AST ALT Alkaline Phosphatase Total Protein Albumin Urine Color Felicia Urine Appearance Clear Urine pH 5.0 Ur Specific [place] 1.029 Urine Protein Negative Urine Glucose (UA) Negative Urine Ketones Negative Urine Blood Negative Urine Nitrite Negative Urine Bilirubin Negative Urine Urobilinogen 4.0 e.u/dl Ur Leukocyte Esterase Negative RPR Titer Labs noted: leukocytosis, pre renal azotemia, hyperglycemia Assessment: 11/14/17 15:11 Withdrawal symptoms Noted with leukocytosis, pre renal azotemia, hyperglycemia Plan: Continue detox Leukocytosis: asymptomatic for infection, repeat CBC Pre renal azotemia: encouraged to drink lots of water for hydration, repeat BMP Hyperglycemia: repeat fasting glucose, send HbA1c, start finger stick glucose ac meal, start sliding scale insulin with coverage ac meal
[2017-11-14] MEDS: INSULIN SLIDING SCALE (NOVOLOG) 1 VIAL SQ SCH (17:05)
[2017-11-14] MEDS: ZOLPIDEM TARTRATE 10 MG TABLET (PARK CARE ONLY) PO PRN (22:41)
[2017-11-14] MEDS: THIAMINE HCL 100 MG TABLET (FP) PO SCH (22:41)
[2017-11-15] MEDS: INSULIN SLIDING SCALE (NOVOLOG) 1 VIAL SQ SCH (06:17)
[2017-11-15 06:27] VITALS: BP 135/90; PULSE 77; TEMP 98.2
[2017-11-15] MEDS ORDERED: METHADONE HCL 5 MG TABLET (FOR DETOX USE ONLY) PO ONE (10:00)
--- NOTE | 2017-11-15 17:10 | DS ---
[facility] Detox Discharge Summary Admission Date: 11/12/17 Discharge Date: 11/15/17 - History Present History: Cannabis Dependence, Opioid Dependence Pertinent Past History: Hepatitis C - Physical Exam Results Vital Signs: Vital Signs Temperature 98.2 F 11/15/17 06:27 Pulse Rate 77 11/15/17 06:27 Respiratory Rate 18 11/15/17 06:27 Blood Pressure 135/90 11/15/17 06:27 O2 Sat by Pulse Oximetry (%) Pertinent Admission Physical Exam Findings: Withdrawal symptoms Laboratory Tests 11/12/17 11/12/17 11/12/17 12:00 12:00 12:00 WBC 12.2 H D RBC 5.87 H Hgb 17.1 H D Hct 51.1 H D MCV 87.1 MCH 29.1 MCHC 33.4 RDW 14.2 Plt Count 254 MPV 9.2 Sodium 136 Potassium 3.7 Chloride 98 Carbon Dioxide 26 Anion Gap 12 BUN 20 H Creatinine 1.3 D Creat Clearance w eGFR 59.17 POC Glucometer Random Glucose 156 H D Calcium 9.5 Total Bilirubin 1.1 H D AST 53 H ALT 86 H D Alkaline Phosphatase 256 H D Total Protein 8.8 H Albumin 4.1 Urine Color Urine Appearance Urine pH Ur Specific [place] Urine Protein Urine Glucose (UA) Urine Ketones Urine Blood Urine Nitrite Urine Bilirubin Urine Urobilinogen Ur Leukocyte Esterase RPR Titer Nonreactive 11/12/17 11/14/17 11/15/17 15:40 16:37 05:52 WBC RBC Hgb Hct MCV MCH MCHC RDW Plt Count MPV Sodium Potassium Chloride Carbon Dioxide Anion Gap BUN Creatinine Creat Clearance w eGFR POC Glucometer 114 100 Random Glucose Calcium Total Bilirubin AST ALT Alkaline Phosphatase Total Protein Albumin Urine Color Felicia Urine Appearance Clear Urine pH 5.0 Ur Specific [place] 1.029 Urine Protein Negative Urine Glucose (UA) Negative Urine Ketones Negative Urine Blood Negative Urine Nitrite Negative Urine Bilirubin Negative Urine Urobilinogen 4.0 e.u/dl Ur Leukocyte Esterase Negative RPR Titer Labs noted - Medication Discharge Medications: Ambulatory Orders NK [No Known Home Medication] 05/22/16 - Diagnosis (1) Leukocytosis Status: Acute (2) Hyperglycemia Status: Acute (3) Prerenal azotemia Status: Acute (4) Cannabis dependence Status: Chronic (5) Insomnia Status: Acute Qualifiers: Insomnia type: unspecified Qualified Code(s): G47.00 - Insomnia, unspecified (6) Nicotine dependence Status: Chronic Qualifiers: Nicotine product type: cigarettes Substance use status: in withdrawal Qualified Code(s): F17.213 - Nicotine dependence, cigarettes, with withdrawal (7) Opioid dependence with withdrawal Status: Acute (8) Hepatitis C Status: Chronic Qualifiers: Viral hepatitis chronicity: chronic Hepatic coma status: without hepatic coma Qualified Code(s): B18.2 - Chronic viral hepatitis C - AMA Did Patient Leave Against Medical Advice: Yes (F/U with PCP withinin 3 days)
[2017-11-16] MEDS ORDERED: METHADONE HCL 10 MG TABLET (FOR DETOX USE ONLY) PO ONE (10:00)
[2017-11-17] MEDS ORDERED: METHADONE HCL 5 MG TABLET (FOR DETOX USE ONLY) PO ONE (06:00)
== END 2017-11-15 07:50 | disposition left against medical advice (07) | DRG 894 ==
LOC: YASAS 09:56 → Y6N 13:30
PROVIDERS: ADMIT Internal Medicine; ATTEND Internal Medicine
PROC: HZ2ZZZZ Detoxification Services for Substance Abuse Treatment (ICD-10-PCS; principal; 2017-11-12)
DX: F11.23 Opioid dependence with withdrawal (principal); F19.282 Other psychoactive substance dependence with psychoactive substance-induced sleep disorder; F12.20 Cannabis dependence, uncomplicated; F17.213 Nicotine dependence, cigarettes, with withdrawal; F19.24 Other psychoactive substance dependence with psychoactive substance-induced mood disorder; F41.8 Other specified anxiety disorders; G47.00 Insomnia, unspecified; R73.9 Hyperglycemia, unspecified; R79.89 Other specified abnormal findings of blood chemistry; B18.2 Chronic viral hepatitis C
CPT/HCPCS: 36415; 80053; 81003; 85027; 86593; 93005; 93010

== ENCOUNTER 2018-02-04 11:33 | Inpatient (IN) | payer OTHER ==
--- NOTE | 2018-02-04 13:47 | HP ---
COWS - Scale Resting Pulse: 2= [place] 101-120 Sweatin= Chills/Flushing Restless Observation: 3= Extraneous Movement Pupil Size: 1= Pupils >than Normal Bone or Joint Aches: 2= Severe Diffuse Aches Runny Nose/ Eye Tearin= Runny Nose/Eyes GI Upset > 30mins: 1= Stomach Cramp Tremor Observation: 2= Slight Tremor Visible Yawning Observation: 2= >3x During Session Anxiety or Irritability: 2=Irritable/Anxious Goose Flesh Skin: 3=Piloerection COWS Score: 21 Admission ROS S - HPI Chief Complaint: withdrawal sx Allergies/Adverse Reactions: Allergies Allergy/AdvReac Type Severity Reaction Status Date / Time No Known Allergies Allergy Verified 02/04/18 13:41 History of Present Illness: 47 years old male with long history of heroin nicotine dependence has hepatitis c and insomnia anxiety is admitted to detox Exam Limitations: No Limitations - Ebola screening Have you traveled outside of the country in the last 21 days: Yes ([place]) Have you had contact with anyone from an Ebola affected area: No Have you been sick,other than usual withdrawal symptoms: No Do you have a fever: No - Review of Systems Constitutional: Loss of Appetite, Changes in sleep, Unintentional Wgt. Loss, Unexplained wgt Loss EENT: reports: Blurred Vision (eye glasses) Respiratory: reports: Productive cough Cardiac: reports: No Symptoms Reported GI: reports: Nausea, Poor Appetite, Poor Fluid Intake, Abdominal cramping : reports: No Symptoms Reported Musculoskeletal: reports: Back Pain, Joint Pain, Muscle Pain, Neck Pain Integumentary: reports: Change in Color (inner elbows iv heroin) Neuro: reports: Tremors Endocrine: reports: No Symptoms Reported Hematology: reports: No Symptoms Reported Psychiatric: reports: Judgement Intact, Orientated x3, Anxious, Depressed Other Systems: Reviewed and Negative Patient History - Patient Medical History Hx Anemia: No Hx Asthma: No Hx Chronic Obstructive Pulmonary Disease (COPD): No Hx Cancer: No Hx Cardiac Disorders: No Hx Congestive Heart Failure: No Hx Hypertension: No Hx Hypercholesterolemia: No Hx Pacemaker: No HX Cerebrovascular Accident: No Hx Seizures: No Hx Dementia: No Hx Diabetes: No Hx Gastrointestinal Disorders: No Hx Liver Disease: No Hx Genitourinary Disorders: No Hx Sexually Transmitted Disorders: No Hx Renal Disease (ESRD): No Hx Thyroid Disease: No Hx Human Immunodeficiency Virus (HIV): No ( NEGATIVE HX) Hx Hepatitis C: Yes (NO TREATMENT YET) Hx Depression: No Hx Suicide Attempt: No (DENIES) Hx Bipolar Disorder: No Hx Schizophrenia: No - Patient Surgical History Past Surgical History: Yes Hx Neurologic Surgery: No Hx Cataract Extraction: No Hx Cardiac Surgery: No Hx Lung Surgery: No Hx Breast Surgery: No Hx Breast Biopsy: No Hx Abdominal Surgery: No Hx Appendectomy: No Hx Cholecystectomy: No Hx Genitourinary Surgery: No Hx Orthopedic Surgery: No Other Surgical History: TONSILECTOMY @ 12 YEARS Anesthesia Reaction: No - PPD History Previous Implant?: Yes Documented Results: Negative w/proof Implanted On Prior [facility] Admission?: Yes Date: 06/29/17 Results: 0 mm PPD to be Administered?: No - Smoking Cessation Smoking history: Current every day smoker Have you smoked in the past 12 months: Yes Aproximately how many cigarettes per day: 30 Cigars Per Day: 0 Hx Chewing Tobacco Use: No Initiated information on smoking cessation: Yes 'Breaking Loose' booklet given: 02/04/18 - Substance & Tx. History Hx Alcohol Use: No Hx Substance Use: Yes Substance Use Type: Heroin Hx Substance Use Treatment: Yes Family Disease History - Family Disease History Family Disease History: Heart Disease: Mother (), Other: Father ( ), Mother, Sister () Admission Physical Exam [facility] - Physical General Appearance: Yes: Appropriately Dressed, Moderate Distress, Thin, Tremorous, Irritable, Sweating, Anxious HEENTM: Yes: Hearing grossly Normal, Normal ENT Inspection, Normocephalic, Normal Voice Respiratory: Yes: Chest Non-Tender, Lungs Clear, Normal Breath Sounds, No Respiratory Distress, No Accessory Muscle Use Neck: Yes: Supple, Trachea in good position Breast: Yes: Breasts Symetrical Cardiology: Yes: Regular Rhythm, S1, S2, Tachycardia Abdominal: Yes: Non Tender, Soft, Increased Bowel Sounds Genitourinary: Yes: Within Normal Limits Back: Yes: Normal Inspection Musculoskeletal: Yes: full range of Motion, Gait Steady, Back pain, Muscle Pain Extremities: Yes: Normal Range of Motion, Non-Tender, Tremors Neurological: Yes: Fully Oriented, Alert, Motor Strength 5/5, Normal Response, Depressed Affect Integumentary: Yes: Warm, Track Calderon Lymphatic: Yes: Within Normal Limits - Diagnostic (1) Opioid dependence with withdrawal Current Visit: Yes Status: Acute (2) Hepatitis C Current Visit: Yes Status: Chronic Qualifiers: Viral hepatitis chronicity: chronic Hepatic coma status: without hepatic coma Qualified Code(s): B18.2 - Chronic viral hepatitis C (3) Nicotine dependence Current Visit: Yes Status: Acute Qualifiers: Nicotine product type: cigarettes Substance use status: in withdrawal Qualified Code(s): F17.213 - Nicotine dependence, cigarettes, with withdrawal (4) Anxiety and depression Current Visit: Yes Status: Suspected Comment: Self reports. Cleared for Admission S - Detox or Rehab [facility] Level of Care: Medically Managed Detox Regimen/Protocol: Methadone S Breath Alcohol Content Breath Alcohol Content: 0 Vital Signs - Vital Signs Vital Signs Refused: No Temperature: 97.2 F Temperature Source: Oral Pulse Rate: 105 Respiratory Rate: 20 Blood Pressure: 253/95 BP Location: Left Arm Blood Pressure Position: Sitting - Height Height: 6 ft - Weight Weight: 196 lb Weight Measurement Method: Standing Scale Body Mass Index (BMI): 26.6 - Bowel Function Bowel Movement: No Urine Drug Screen - Control Is Test Valid: Yes - Results Urine Drug Screen Results: THC-Marijuana, OPI-Opiates, BAR-Barbiturates, OXY- Oxycodone
[2018-02-04] MEDS ORDERED: guaiFENesin/D-METHORPHAN HB 10 ML UNIT-DOSE CUPS PO PRN (13:50)
[2018-02-04] MEDS ORDERED: MAGNESIUM CITRATE 300 ML BOTTLE PO PRN (13:50)
[2018-02-04] MEDS ORDERED: LOPERAMIDE HCL 2 MG CAPSULE PO PRN (13:50)
[2018-02-04] MEDS ORDERED: ACETAMINOPHEN 325 MG TABLET (FP) PO PRN (13:50)
[2018-02-04] MEDS ORDERED: MAGNESIUM HYDROX 2400MG/30ML ORAL SUSPENSION 30 ML CUP PO PRN (13:50)
[2018-02-04] MEDS ORDERED: P-EPHED 60MG/TRIPROLIDI 2.5MG TABLET PO PRN (13:50)
[2018-02-04] MEDS ORDERED: NICOTINE POLACRILEX 4 MG GUM BUC PRN (13:50)
[2018-02-04] MEDS ORDERED: MENTHOL/PHENOL 1 EACH UD MM PRN (13:50)
[2018-02-04 14:00] VITALS: BMI 26.6
[2018-02-04] MEDS ORDERED: METHADONE HCL 10 MG TABLET (FOR DETOX USE ONLY) PO ONE ×2 (15:30→23:00)
[2018-02-04] MEDS: diazePAM 5 MG TABLET PO PRN ×2 (15:48→22:22)
--- NOTE | 2018-02-04 17:07 | CONSULT ---
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 Substance Abuse History: Discussed with patient.Mr Rivera endorses a 4 year history of heroin dependence (self-injects IV 3-5 bags daily) + a 30+ year history of marihuana abuse (spends 5-10 dollars/2-3 times a week) + smokes 2-3 packs of cigarettes a day. Details in current [facility] report : Smoking history: Current every day smoker. Have you smoked in the past 12 months: Yes. Aproximately how many cigarettes per day: 30. Cigars Per Day: 0. Hx Chewing Tobacco Use: No. Initiated information on smoking cessation: Yes. 'Breaking Loose' booklet given: 02/04/18. - Substance & Tx. History. Hx Alcohol Use: No. Hx Substance Use: Yes. Substance Use Type: Heroin. Hx Substance Use Treatment: Yes Medical History: GERD ,hepatitis C and a remote hiistory of tonsillectomy. Psychiatric History: Patient denies history of psychiatric hospitalizations.He admits, however, to seeing a private therapist to address " personal issues " related to depression,relational difficulties and stress.Not on psychotropic medications.Mr Rivera reports prior exposure to trazodone (insomnia) from a past admission to another detox facility.Denies history of suicide attempts. Physical/Sexual Abuse/Trauma History: Patient denies history of abuse. Additional Comment: Urine Drug Screen Results: THC-Marijuana, OPI-Opiates, BAR- Barbiturates, OXY-Oxycodone.Noted. Mental Status Exam - Mental Status Exam Alert and Oriented to: Time, Place, Person Cognitive Function: Good Patient Appearance: Well Groomed (wearing bilateral earrings) Mood: Withdrawn Affect: Appropriate, Normal Range Patient Behavior: Fatigued, Appropriate, Cooperative Speech Pattern: Clear, Appropriate Voice Loudness: Normal Thought Process: Intact, Goal Oriented Thought Disorder: Not Present Hallucinations: Denies Suicidal Ideation: Denies Homicidal Ideation: Denies Insight/Judgement: Poor Sleep: Poorly, Difficulty falling asleep Appetite: Good Muscle strength/Tone: Normal Gait/Station: Normal Psychiatric Findings - Problem List ([place] 1, 2,3) (1) Opioid dependence with withdrawal Current Visit: Yes Status: Acute (2) Cannabis dependence Current Visit: Yes Status: Acute (3) Nicotine dependence Current Visit: Yes Status: Acute Qualifiers: Nicotine product type: cigarettes Substance use status: in withdrawal Qualified Code(s): F17.213 - Nicotine dependence, cigarettes, with withdrawal (4) Substance induced mood disorder Current Visit: Yes Status: Acute (5) Insomnia Current Visit: Yes Status: Acute - Initial Treatment Plan Initial Treatment Plan: Psychoeducation.Sleep hygiene.Detoxification in progress.Trazodone 50 mg po hs.Ordered.Patient is made aware of the risk of priapism and he is advised to alert MD/RN if occurrence of erectile abnormalities (prolonged/painful erection).Mr Rivera endorses trazodone as previously well tolerated and effective in past management of his chronic insomnia.Consent (verbal) given.Observation.
[2018-02-04] MEDS: RANITIDINE HCL 150 MG TABLET (FP) PO SCH (22:22)
[2018-02-04] MEDS: traZODone HCL 50 MG TABLET (FP) PO SCH (22:22)
[2018-02-04] MEDS: THIAMINE HCL 100 MG TABLET (FP) PO SCH (22:22)
[2018-02-04] MEDS: MELATONIN 5 MG TABLETS PO SCH (22:23)
[2018-02-05] MEDS: diazePAM 5 MG TABLET PO PRN ×3 (08:51→22:31)
[2018-02-05] MEDS: PRENATAL VITAMINS W/ FOLIC ACID TABLET (FP) PO SCH (09:51)
[2018-02-05] MEDS: NICOTINE 21 MG/24 HOURS TOPICAL PATCH TD SCH (09:51)
[2018-02-05] MEDS ORDERED: METHADONE HCL 10 MG TABLET (FOR DETOX USE ONLY) PO ONE (10:00)
--- NOTE | 2018-02-05 10:00 | EKG ---
Test Reason : Blood Pressure : / mmHG Vent. Rate : 094 BPM Atrial Rate : 094 BPM P-R Int : 134 ms QRS Dur : 090 ms QT Int : 382 ms P-R-T Axes : 056 057 060 degrees QTc Int : 477 ms NORMAL SINUS RHYTHM NORMAL ECG WHEN COMPARED WITH ECG OF 12-NOV-2017 15:18, NO SIGNIFICANT CHANGE WAS FOUND Confirmed by LUAN PAUL MD ([id number]) on 02/05/2018 9:59:52 AM Referred By: Confirmed By:LUAN PAUL MD
[2018-02-05 10:06] LABS: HEMOGLOBIN 16.2 GM/dL (11.7-16.9); MCHC 33.8 g/dl (32.0-35.9); MEAN CELL VOLUME 88.8 fl (80-96); MEAN PLT VOLUME 9.3 fl (7.5-11.1); PLATELET COUNT 313 K/MM3 (134-434); RBC 5.41 M/mm3 (4.00-5.60); RDW 13.9 % (11.9-15.9); WHITE BLOOD COUNT 16.3 K/mm3 (4.0-10.0)
[2018-02-05 10:10] LABS: URINE APPEARANCE TURBID; URINE BILIRUBIN NEGATIVE (NEGATIVE); URINE BLOOD NEGATIVE (NEGATIVE); URINE COLOR YELLOW; URINE GLUCOSE (UA) NEGATIVE (NEGATIVE); URINE KETONE 1+ (NEGATIVE); URINE LEUK ESTERASE NEGATIVE (NEGATIVE); URINE NITRITE NEGATIVE (NEGATIVE); URINE UROBILINOGEN NEGATIVE mg/dL (0.2-1.0)
[2018-02-05 10:11] LABS: URINE PROTEIN 2+ (NEGATIVE)
[2018-02-05] MEDS: RANITIDINE HCL 150 MG TABLET (FP) PO SCH ×2 (10:37→22:31)
[2018-02-05 10:38] LABS: CHLORIDE 94 mmol/L (98-107); SODIUM 134 mmol/L (136-145)
[2018-02-05 10:40] LABS: URINE MUCUS MANY
[2018-02-05 10:43] LABS: AMORP URATES MANY /hpf (NONE SEEN)
[2018-02-05 10:48] LABS: ALBUMIN 4.3 g/dl (3.4-5.0); ALK PHOS 228 U/L (45-117); ANION GAP 16 (8-16); BILIRUBIN,TOTAL 0.6 mg/dL (0.2-1.0); BLOOD UREA NITROGEN 22 mg/dL (7-18); CALCIUM 9.9 mg/dL (8.5-10.1); CO2 24 mmol/L (21-32); CREATININE 1.6 mg/dL (0.7-1.3); GLUCOSE,RANDOM 155 mg/dL (74-106); SGPT/ALT 68 U/L (12-78); TOT PROT 9.3 g/dl (6.4-8.2)
[2018-02-05 10:50] LABS: SGOT/AST 45 U/L (15-37)
--- NOTE | 2018-02-05 13:10 | PN ---
BHS COWS - Scale Resting Pulse: 1= [place] 81-100 Sweatin= Chills/Flushing Restless Observation: 0= Sits Still Pupil Size: 2= Moderately Dilated Bone or Joint Aches: 1= Mild Discomfort Runny Nose/ Eye Tearin= Nasal Congestion GI Upset > 30mins: 0= None Tremor Observation of Outstretched Hands: 1= Tremor [place], Not Seen Yawning Observation: 1= 1-2x During Session Anxiety or Irritability: 1=Feels Anxious/Irritable Goose Flesh Skin: 0=Smooth Skin COWS Score: 9 BHS Progress Note (SOAP) Subjective: SLIGHT ANXIETY,SWEATS/CHILLS,FATIGUE. Objective: 02/05/18 13:07 Vital Signs Temperature 96.4 F L 02/05/18 09:35 Pulse Rate 93 H 02/05/18 09:35 Respiratory Rate 18 02/05/18 09:35 Blood Pressure 136/78 02/05/18 09:35 O2 Sat by Pulse Oximetry (%) Laboratory Last Values WBC 16.3 K/mm3 (4.0-10.0) H D 02/05/18 06:00 RBC 5.41 M/mm3 (4.00-5.60) 02/05/18 06:00 Hgb 16.2 GM/dL (11.7-16.9) 02/05/18 06:00 Hct 48.0 % (35.4-49) 02/05/18 06:00 MCV 88.8 fl (80-96) 02/05/18 06:00 MCH 30.0 pg (25.7-33.7) 02/05/18 06:00 MCHC 33.8 g/dl (32.0-35.9) 02/05/18 06:00 RDW 13.9 % (11.9-15.9) 02/05/18 06:00 Plt Count 313 K/MM3 (134-434) D 02/05/18 06:00 MPV 9.3 fl (7.5-11.1) 02/05/18 06:00 Sodium 134 mmol/L (136-145) L 02/05/18 06:00 Potassium 4.0 mmol/L (3.5-5.1) 02/05/18 06:00 Chloride 94 mmol/L (98-107) L 02/05/18 06:00 Carbon Dioxide 24 mmol/L (21-32) 02/05/18 06:00 Anion Gap 16 (8-16) 02/05/18 06:00 BUN 22 mg/dL (7-18) H 02/05/18 06:00 Creatinine 1.6 mg/dL (0.7-1.3) H D 02/05/18 06:00 Creat Clearance w eGFR 46.56 (>60) 02/05/18 06:00 Random Glucose 155 mg/dL (74-106) H 02/05/18 06:00 Calcium 9.9 mg/dL (8.5-10.1) 02/05/18 06:00 Total Bilirubin 0.6 mg/dL (0.2-1.0) D 02/05/18 06:00 AST 45 U/L (15-37) H 02/05/18 06:00 ALT 68 U/L (12-78) D 02/05/18 06:00 Alkaline Phosphatase 228 U/L (45-117) H 02/05/18 06:00 Total Protein 9.3 g/dl (6.4-8.2) H 02/05/18 06:00 Albumin 4.3 g/dl (3.4-5.0) 02/05/18 06:00 Urine Color Yellow 02/04/18 15:03 Urine Appearance Turbid 02/04/18 15:03 Urine pH 5.0 (5.0-8.0) 02/04/18 15:03 Ur Specific [place] 1.032 (1.001-1.035) 02/04/18 15:03 Urine Protein 2+ (NEGATIVE) H 02/04/18 15:03 Urine Glucose (UA) Negative (NEGATIVE) 02/04/18 15:03 Urine Ketones 1+ (NEGATIVE) H 02/04/18 15:03 Urine Blood Negative (NEGATIVE) 02/04/18 15:03 Urine Nitrite Negative (NEGATIVE) 02/04/18 15:03 Urine Bilirubin Negative (NEGATIVE) 02/04/18 15:03 Urine Urobilinogen Negative mg/dL (0.2-1.0) 02/04/18 15:03 Ur Leukocyte Esterase Negative (NEGATIVE) 02/04/18 15:03 Urine WBC (Auto) None /hpf (3-5) 02/04/18 15:03 Urine RBC (Auto) None /hpf (0-3) 02/04/18 15:03 Amorphous Urates Many /hpf (NONE SEEN) 02/04/18 15:03 Urine Mucus Many 02/04/18 15:03 Assessment: 02/05/18 13:08 WITHDRAWAL SX Plan: CONTINUE DETOX
[2018-02-05] MEDS: traZODone HCL 50 MG TABLET (FP) PO SCH (22:31)
[2018-02-05] MEDS: MELATONIN 5 MG TABLETS PO SCH (22:31)
[2018-02-05] MEDS: THIAMINE HCL 100 MG TABLET (FP) PO SCH (22:31)
[2018-02-06] MEDS: diazePAM 5 MG TABLET PO PRN ×3 (08:45→22:36)
[2018-02-06] MEDS: PRENATAL VITAMINS W/ FOLIC ACID TABLET (FP) PO SCH (09:47)
[2018-02-06] MEDS: RANITIDINE HCL 150 MG TABLET (FP) PO SCH ×2 (09:47→22:37)
[2018-02-06] MEDS: NICOTINE 21 MG/24 HOURS TOPICAL PATCH TD SCH (09:47)
[2018-02-06] MEDS ORDERED: ONDANSETRON *ODT* 4 MG TABLET SL PRN (09:55)
[2018-02-06] MEDS ORDERED: METHADONE HCL 5 MG TABLET (FOR DETOX USE ONLY) PO ONE (10:00)
--- NOTE | 2018-02-06 11:14 | PN ---
BHS COWS - Scale Resting Pulse: 0= [place] 80 or Below Sweatin= Chills/Flushing Restless Observation: 3= Extraneous Movement Pupil Size: 2= Moderately Dilated Bone or Joint Aches: 1= Mild Discomfort Runny Nose/ Eye Tearin= Nasal Congestion GI Upset > 30mins: 3= Vomiting/Diarrhea (NAUSEA/VOMITING) Tremor Observation of Outstretched Hands: 1= Tremor [place], Not Seen Yawning Observation: 1= 1-2x During Session Anxiety or Irritability: 2=Irritable/Anxious Goose Flesh Skin: 0=Smooth Skin COWS Score: 15 S Progress Note (SOAP) Subjective: PT C/O NAUSEA/VOMITING, SWEATS, IRRITABILITY,RESTLESSNESS,INTERMITTENT SLEEP. Objective: 02/06/18 11:16 Vital Signs Temperature 96.6 F L 02/06/18 09:52 Pulse Rate 72 02/06/18 09:52 Respiratory Rate 18 02/06/18 09:52 Blood Pressure 162/99 02/06/18 09:52 O2 Sat by Pulse Oximetry (%) Laboratory Tests 02/04/18 02/05/18 02/05/18 15:03 06:00 06:00 WBC 16.3 H D RBC 5.41 Hgb 16.2 Hct 48.0 MCV 88.8 MCH 30.0 MCHC 33.8 RDW 13.9 Plt Count 313 D MPV 9.3 Sodium 134 L Potassium 4.0 Chloride 94 L Carbon Dioxide 24 Anion Gap 16 BUN 22 H Creatinine 1.6 H D Creat Clearance w eGFR 46.56 Random Glucose 155 H Calcium 9.9 Total Bilirubin 0.6 D AST 45 H ALT 68 D Alkaline Phosphatase 228 H Total Protein 9.3 H Albumin 4.3 Urine Color Yellow Urine Appearance Turbid Urine pH 5.0 Ur Specific [place] 1.032 Urine Protein 2+ H Urine Glucose (UA) Negative Urine Ketones 1+ H Urine Blood Negative Urine Nitrite Negative Urine Bilirubin Negative Urine Urobilinogen Negative Ur Leukocyte Esterase Negative Urine WBC (Auto) None Urine RBC (Auto) None Amorphous Urates Many Urine Mucus Many RPR Titer 02/05/18 06:00 WBC RBC Hgb Hct MCV MCH MCHC RDW Plt Count MPV Sodium Potassium Chloride Carbon Dioxide Anion Gap BUN Creatinine Creat Clearance w eGFR Random Glucose Calcium Total Bilirubin AST ALT Alkaline Phosphatase Total Protein Albumin Urine Color Urine Appearance Urine pH Ur Specific [place] Urine Protein Urine Glucose (UA) Urine Ketones Urine Blood Urine Nitrite Urine Bilirubin Urine Urobilinogen Ur Leukocyte Esterase Urine WBC (Auto) Urine RBC (Auto) Amorphous Urates Urine Mucus RPR Titer Nonreactive Assessment: 02/06/18 11:17 WITHDRAWAL SX Plan: CONTINUE DETOX ZOFRAN SL 8 MG Q6H PRN START CLONIDINE AND FLEXERIL DIRECTED
[2018-02-06] MEDS: MAG HYDROX/AL HYDROX/SIMETH 30 ML UNIT-DOSE CUP PO PRN (11:46)
[2018-02-06] MEDS: CYCLOBENZAPRINE HCL 10 MG TABLET (FP) PO PRN ×2 (14:49→22:37)
[2018-02-06] MEDS ORDERED: cloNIDine HCL 0.1 MG TABLET PO ONE (18:53)
--- NOTE | 2018-02-06 18:53 | PN ---
S Progress Note Note: Patient with elevated BP, in no apparent distress. Vital Signs Temperature 98.2 F 02/06/18 17:27 Pulse Rate 69 02/06/18 17:27 Respiratory Rate 16 02/06/18 17:27 Blood Pressure 158/94 02/06/18 17:27 O2 Sat by Pulse Oximetry (%) Plan: STAT dose clonidine 0.1mg Increase fluids continue to monitor
[2018-02-06] MEDS: traZODone HCL 50 MG TABLET (FP) PO SCH (22:36)
[2018-02-06] MEDS: THIAMINE HCL 100 MG TABLET (FP) PO SCH (22:36)
[2018-02-06] MEDS: cloNIDine HCL 0.1 MG TABLET PO SCH (22:37)
[2018-02-06] MEDS: MELATONIN 5 MG TABLETS PO SCH (22:37)
[2018-02-07] MEDS ORDERED: METHADONE HCL 5 MG TABLET (FOR DETOX USE ONLY) PO ONE (10:00)
[2018-02-07] MEDS: cloNIDine HCL 0.1 MG TABLET PO SCH ×2 (10:40→22:33)
[2018-02-07] MEDS: PRENATAL VITAMINS W/ FOLIC ACID TABLET (FP) PO SCH (10:40)
[2018-02-07] MEDS: NICOTINE 21 MG/24 HOURS TOPICAL PATCH TD SCH (10:41)
[2018-02-07] MEDS: RANITIDINE HCL 150 MG TABLET (FP) PO SCH ×2 (10:41→22:34)
--- NOTE | 2018-02-07 12:35 | PN ---
BHS Progress Note (SOAP) Subjective: SLIGHT ANXIETY,SWEATS, IRRITABILITY. Objective: 02/07/18 12:34 Vital Signs Temperature 96.3 F L 02/07/18 10:32 Pulse Rate 76 02/07/18 10:32 Respiratory Rate 18 02/07/18 10:32 Blood Pressure 117/85 02/07/18 10:32 O2 Sat by Pulse Oximetry (%) Laboratory Last Values WBC 16.3 K/mm3 (4.0-10.0) H D 02/05/18 06:00 RBC 5.41 M/mm3 (4.00-5.60) 02/05/18 06:00 Hgb 16.2 GM/dL (11.7-16.9) 02/05/18 06:00 Hct 48.0 % (35.4-49) 02/05/18 06:00 MCV 88.8 fl (80-96) 02/05/18 06:00 MCH 30.0 pg (25.7-33.7) 02/05/18 06:00 MCHC 33.8 g/dl (32.0-35.9) 02/05/18 06:00 RDW 13.9 % (11.9-15.9) 02/05/18 06:00 Plt Count 313 K/MM3 (134-434) D 02/05/18 06:00 MPV 9.3 fl (7.5-11.1) 02/05/18 06:00 Sodium 134 mmol/L (136-145) L 02/05/18 06:00 Potassium 4.0 mmol/L (3.5-5.1) 02/05/18 06:00 Chloride 94 mmol/L (98-107) L 02/05/18 06:00 Carbon Dioxide 24 mmol/L (21-32) 02/05/18 06:00 Anion Gap 16 (8-16) 02/05/18 06:00 BUN 22 mg/dL (7-18) H 02/05/18 06:00 Creatinine 1.6 mg/dL (0.7-1.3) H D 02/05/18 06:00 Creat Clearance w eGFR 46.56 (>60) 02/05/18 06:00 Random Glucose 155 mg/dL (74-106) H 02/05/18 06:00 Calcium 9.9 mg/dL (8.5-10.1) 02/05/18 06:00 Total Bilirubin 0.6 mg/dL (0.2-1.0) D 02/05/18 06:00 AST 45 U/L (15-37) H 02/05/18 06:00 ALT 68 U/L (12-78) D 02/05/18 06:00 Alkaline Phosphatase 228 U/L (45-117) H 02/05/18 06:00 Total Protein 9.3 g/dl (6.4-8.2) H 02/05/18 06:00 Albumin 4.3 g/dl (3.4-5.0) 02/05/18 06:00 Urine Color Yellow 02/04/18 15:03 Urine Appearance Turbid 02/04/18 15:03 Urine pH 5.0 (5.0-8.0) 02/04/18 15:03 Ur Specific [place] 1.032 (1.001-1.035) 02/04/18 15:03 Urine Protein 2+ (NEGATIVE) H 02/04/18 15:03 Urine Glucose (UA) Negative (NEGATIVE) 02/04/18 15:03 Urine Ketones 1+ (NEGATIVE) H 02/04/18 15:03 Urine Blood Negative (NEGATIVE) 02/04/18 15:03 Urine Nitrite Negative (NEGATIVE) 02/04/18 15:03 Urine Bilirubin Negative (NEGATIVE) 02/04/18 15:03 Urine Urobilinogen Negative mg/dL (0.2-1.0) 02/04/18 15:03 Ur Leukocyte Esterase Negative (NEGATIVE) 02/04/18 15:03 Urine WBC (Auto) None /hpf (3-5) 02/04/18 15:03 Urine RBC (Auto) None /hpf (0-3) 02/04/18 15:03 Amorphous Urates Many /hpf (NONE SEEN) 02/04/18 15:03 Urine Mucus Many 02/04/18 15:03 RPR Titer Nonreactive (NONREACTIVE) 02/05/18 06:00 Assessment: 02/07/18 12:34 WITHDRAWAL SX Plan: CONTINUE DETOX
[2018-02-07] MEDS: diazePAM 5 MG TABLET PO PRN (13:51)
[2018-02-07] MEDS: MELATONIN 5 MG TABLETS PO SCH (22:32)
[2018-02-07] MEDS: THIAMINE HCL 100 MG TABLET (FP) PO SCH (22:32)
[2018-02-07] MEDS: traZODone HCL 50 MG TABLET (FP) PO SCH (22:33)
[2018-02-07] MEDS: MAG HYDROX/AL HYDROX/SIMETH 30 ML UNIT-DOSE CUP PO PRN (22:35)
[2018-02-08 09:46] VITALS: BP 107/74; PULSE 93; TEMP 95.7
[2018-02-08] MEDS ORDERED: METHADONE HCL 10 MG TABLET (FOR DETOX USE ONLY) PO ONE (10:00)
[2018-02-08] MEDS ORDERED: METHADONE HCL 5 MG TABLET (FOR DETOX USE ONLY) PO ONE ×2 (10:45)
[2018-02-08] MEDS: NICOTINE 21 MG/24 HOURS TOPICAL PATCH TD SCH (11:03)
[2018-02-08] MEDS: PRENATAL VITAMINS W/ FOLIC ACID TABLET (FP) PO SCH (11:03)
[2018-02-08] MEDS: RANITIDINE HCL 150 MG TABLET (FP) PO SCH (11:05)
[2018-02-08] MEDS: cloNIDine HCL 0.1 MG TABLET PO SCH (11:07)
--- NOTE | 2018-02-08 18:16 | PN ---
BHS Progress Note (SOAP) Subjective: Patient denies any current detox symptoms and reports that he is feeling well overall. Objective: PATIENT A & O X 3, OBSERVED AMBULATING ON UNIT. NO ACUTE DISTRESS. 02/08/18 18:14 Vital Signs Temperature 95.7 F L 02/08/18 09:45 Pulse Rate 93 H 02/08/18 09:45 Respiratory Rate 20 02/08/18 09:45 Blood Pressure 107/74 02/08/18 09:45 O2 Sat by Pulse Oximetry (%) Laboratory Tests 02/04/18 02/05/18 02/05/18 15:03 06:00 06:00 WBC 16.3 H D RBC 5.41 Hgb 16.2 Hct 48.0 MCV 88.8 MCH 30.0 MCHC 33.8 RDW 13.9 Plt Count 313 D MPV 9.3 Sodium 134 L Potassium 4.0 Chloride 94 L Carbon Dioxide 24 Anion Gap 16 BUN 22 H Creatinine 1.6 H D Creat Clearance w eGFR 46.56 Random Glucose 155 H Calcium 9.9 Total Bilirubin 0.6 D AST 45 H ALT 68 D Alkaline Phosphatase 228 H Total Protein 9.3 H Albumin 4.3 Urine Color Yellow Urine Appearance Turbid Urine pH 5.0 Ur Specific [place] 1.032 Urine Protein 2+ H Urine Glucose (UA) Negative Urine Ketones 1+ H Urine Blood Negative Urine Nitrite Negative Urine Bilirubin Negative Urine Urobilinogen Negative Ur Leukocyte Esterase Negative Urine WBC (Auto) None Urine RBC (Auto) None Amorphous Urates Many Urine Mucus Many RPR Titer 02/05/18 06:00 WBC RBC Hgb Hct MCV MCH MCHC RDW Plt Count MPV Sodium Potassium Chloride Carbon Dioxide Anion Gap BUN Creatinine Creat Clearance w eGFR Random Glucose Calcium Total Bilirubin AST ALT Alkaline Phosphatase Total Protein Albumin Urine Color Urine Appearance Urine pH Ur Specific [place] Urine Protein Urine Glucose (UA) Urine Ketones Urine Blood Urine Nitrite Urine Bilirubin Urine Urobilinogen Ur Leukocyte Esterase Urine WBC (Auto) Urine RBC (Auto) Amorphous Urates Urine Mucus RPR Titer Nonreactive LABS NOTED. Assessment: 02/08/18 18:15 COMPLETION OF DETOX REGIMEN. Plan: PATIENT SCHEDULED FOR DISCHARGE FROM DETOX UNIT TODAY.
--- NOTE | 2018-02-08 18:19 | DS ---
[facility] Detox Discharge Summary Admission Date: 02/04/18 Discharge Date: 02/08/18 - History Present History: Cannabis Dependence, Opioid Dependence Additional Comments: PATIENT GOING HOME. PATIENT DENIES ANY CURRENT DETOX SYMPTOMS AND REPORTS THAT HE FEELS WELL OVERALL AT TIME OF DISCHARGE. PATIENT ADVISED TO CONSIDER LOCAL 12 -STEP / NA OUTPATIENT SUPPORT GROUP PROGRAMS FOR AFTERCARE. PATIENT WAS DISCHARGED FROM DETOX UNIT IN STABLE MEDICAL CONDITION. Pertinent Past History: Nicotine Dependence, Hep C, Insomnia. - Physical Exam Results Vital Signs: Vital Signs Temperature 95.7 F L 02/08/18 09:45 Pulse Rate 93 H 02/08/18 09:45 Respiratory Rate 20 02/08/18 09:45 Blood Pressure 107/74 02/08/18 09:45 O2 Sat by Pulse Oximetry (%) Pertinent Admission Physical Exam Findings: WITHDRAWAL SYMPTOMS. Laboratory Tests 02/04/18 02/05/18 02/05/18 15:03 06:00 06:00 WBC 16.3 H D RBC 5.41 Hgb 16.2 Hct 48.0 MCV 88.8 MCH 30.0 MCHC 33.8 RDW 13.9 Plt Count 313 D MPV 9.3 Sodium 134 L Potassium 4.0 Chloride 94 L Carbon Dioxide 24 Anion Gap 16 BUN 22 H Creatinine 1.6 H D Creat Clearance w eGFR 46.56 Random Glucose 155 H Calcium 9.9 Total Bilirubin 0.6 D AST 45 H ALT 68 D Alkaline Phosphatase 228 H Total Protein 9.3 H Albumin 4.3 Urine Color Yellow Urine Appearance Turbid Urine pH 5.0 Ur Specific [place] 1.032 Urine Protein 2+ H Urine Glucose (UA) Negative Urine Ketones 1+ H Urine Blood Negative Urine Nitrite Negative Urine Bilirubin Negative Urine Urobilinogen Negative Ur Leukocyte Esterase Negative Urine WBC (Auto) None Urine RBC (Auto) None Amorphous Urates Many Urine Mucus Many RPR Titer 02/05/18 06:00 WBC RBC Hgb Hct MCV MCH MCHC RDW Plt Count MPV Sodium Potassium Chloride Carbon Dioxide Anion Gap BUN Creatinine Creat Clearance w eGFR Random Glucose Calcium Total Bilirubin AST ALT Alkaline Phosphatase Total Protein Albumin Urine Color Urine Appearance Urine pH Ur Specific [place] Urine Protein Urine Glucose (UA) Urine Ketones Urine Blood Urine Nitrite Urine Bilirubin Urine Urobilinogen Ur Leukocyte Esterase Urine WBC (Auto) Urine RBC (Auto) Amorphous Urates Urine Mucus RPR Titer Nonreactive LABS NOTED. - Treatment Hospital Course: Detox Protocol Followed, Detoxed Safely, Responded well, Discharged Condition Good Patient has Accepted a Rehab Referral to: PT GOING HOME, ADVISED TO CONSIDER LOCAL 12-STEP/NA SUPPORT GROUP. - Medication Discharge Medications: Ambulatory Orders NK [No Known Home Medication] 05/22/16 - Diagnosis (1) Nicotine dependence Status: Acute Qualifiers: Nicotine product type: cigarettes Substance use status: in withdrawal Qualified Code(s): F17.213 - Nicotine dependence, cigarettes, with withdrawal (2) Opioid dependence with withdrawal Status: Acute (3) Hepatitis C Status: Chronic Qualifiers: Viral hepatitis chronicity: chronic Hepatic coma status: without hepatic coma Qualified Code(s): B18.2 - Chronic viral hepatitis C (4) Anxiety and depression Status: Suspected (5) Cannabis dependence Status: Acute (6) Insomnia Status: Acute Qualifiers: Insomnia type: unspecified Qualified Code(s): G47.00 - Insomnia, unspecified - AMA Did Patient Leave Against Medical Advice: No
[2018-02-09] MEDS ORDERED: METHADONE HCL 5 MG TABLET (FOR DETOX USE ONLY) PO ONE (06:00)
== END 2018-02-08 11:10 | disposition home or self-care (01) | DRG 773 ==
LOC: YASAS 11:33 → Y3N 14:45
PROVIDERS: ADMIT Internal Medicine; ATTEND Internal Medicine
PROC: HZ2ZZZZ Detoxification Services for Substance Abuse Treatment (ICD-10-PCS; principal; 2018-02-04)
DX: F11.23 Opioid dependence with withdrawal (principal); F12.20 Cannabis dependence, uncomplicated; F17.210 Nicotine dependence, cigarettes, uncomplicated; F41.8 Other specified anxiety disorders; G47.00 Insomnia, unspecified; B18.2 Chronic viral hepatitis C
CPT/HCPCS: 36415; 80053; 81003; 81015; 85027; 86593; 93005; 93010; J0735; Q0162

== ENCOUNTER 2018-04-29 17:05 | Inpatient (IN) | payer OTHER ==
[2018-04-29 17:32] VITALS: BMI 27.9
--- NOTE | 2018-04-29 19:22 | HP ---
COWS - Scale Resting Pulse: 1= [place] 81-100 Sweatin= Chills/Flushing Restless Observation: 1= Difficult to Sit Still Pupil Size: 0= Normal to Room Light Bone or Joint Aches: 1= Mild Discomfort Runny Nose/ Eye Tearin= Runny Nose/Eyes GI Upset > 30mins: 2= Nausea/Diarrhea Tremor Observation: 2= Slight Tremor Visible Yawning Observation: 1= 1-2x During Session Anxiety or Irritability: 2=Irritable/Anxious Goose Flesh Skin: 3=Piloerection COWS Score: 16 Admission ROS S - HPI Chief Complaint: " I tried to quit cold turkey at home and is very hard" opioid withdrawal Allergies/Adverse Reactions: Allergies Allergy/AdvReac Type Severity Reaction Status Date / Time No Known Allergies Allergy Verified 04/29/18 17:31 History of Present Illness: 48 yo male with THC, nicotine and IV heroin dependence is here seeking detox, this one of multiple admissions to [facility]. Last detox [facility] 02/04/18 - 02/08/18 left AMA. PMHX: depression, Insomnia and anxiety. Denies suicidal / homicidal ideation or hx of suicide attempts. Longest period of sobriety one months. Exam Limitations: No Limitations - Ebola screening Have you traveled outside of the country in the last 21 days: No Have you had contact with anyone from an Ebola affected area: No Have you been sick,other than usual withdrawal symptoms: No Do you have a fever: No - Review of Systems Constitutional: Chills, Diaphoresis, Loss of Appetite, Weakness, Other (weight gain 10 lbs) EENT: reports: No Symptoms Reported Respiratory: reports: Shortness of Breath (with withdrawal from heorin, reports does not occur in other times) Cardiac: reports: No Symptoms Reported GI: reports: Diarrhea, Nausea, Abdominal cramping : reports: No Symptoms Reported Musculoskeletal: reports: Back Pain (lower back), Joint Pain (hands, elbows and knees) Integumentary: reports: No Symptoms Reported Neuro: reports: Headache Endocrine: reports: Increased Thirst Hematology: reports: No Symptoms Reported Psychiatric: reports: Orientated x3, Depressed Other Systems: Reviewed and Negative Patient History - Patient Medical History Hx Anemia: No Hx Asthma: No Hx Chronic Obstructive Pulmonary Disease (COPD): No Hx Cancer: No Hx Cardiac Disorders: No Hx Congestive Heart Failure: No Hx Hypertension: No Hx Hypercholesterolemia: No Hx Pacemaker: No HX Cerebrovascular Accident: No Hx Seizures: No Hx Dementia: No Hx Diabetes: No Hx Gastrointestinal Disorders: No Hx Liver Disease: No Hx Genitourinary Disorders: No Hx Sexually Transmitted Disorders: No Hx Renal Disease (ESRD): No Hx Thyroid Disease: No Hx Human Immunodeficiency Virus (HIV): No ( NEGATIVE HX) Hx Hepatitis C: Yes (NO TREATMENT YET) Hx Depression: Yes Hx Suicide Attempt: No (DENIES) Hx Bipolar Disorder: No Hx Schizophrenia: No - Patient Surgical History Past Surgical History: Yes Hx Neurologic Surgery: No Hx Cataract Extraction: No Hx Cardiac Surgery: No Hx Lung Surgery: No Hx Breast Surgery: No Hx Breast Biopsy: No Hx Abdominal Surgery: No Hx Appendectomy: No Hx Cholecystectomy: No Hx Genitourinary Surgery: No Hx Section: No Hx Orthopedic Surgery: No Other Surgical History: TONSILECTOMY @ 12 YEARS OLD Anesthesia Reaction: No - PPD History Previous Implant?: Yes Documented Results: Negative w/proof Implanted On Prior [facility] Admission?: Yes Date: 06/29/17 Results: NEGATIVE PPD to be Administered?: No - Smoking Cessation Smoking history: Current every day smoker Have you smoked in the past 12 months: Yes Aproximately how many cigarettes per day: 60 Cigars Per Day: 0 Hx Chewing Tobacco Use: No Initiated information on smoking cessation: Yes 'Breaking Loose' booklet given: 04/29/18 - Substance & Tx. History Hx Alcohol Use: Yes Hx Substance Use: Yes Substance Use Type: Heroin, Marijuana Hx Substance Use Treatment: Yes ([facility] 02/04/18 -02/08/18 left [place] ) - Substances Abused Heroin Route: Injection Frequency: Daily Amount used: 5-10 bags daily Age of first use: 44 Date of Last Use: 04/29/18 Family Disease History - Family Disease History Family Disease History: Heart Disease: Mother (), Other: Father ( ), Mother, Sister () Admission Physical Exam S - Vital Signs Vital Signs: Vital Signs - 24 hr 04/29/18 17:30 Temperature 98.7 F Pulse Rate 90 Respiratory 20 Rate Blood Pressure 151/109 - Physical General Appearance: Yes: Appropriately Dressed, Mild Distress, Sweating, Anxious HEENTM: Yes: EOMI, Hearing grossly Normal, Normal ENT Inspection, Normocephalic , Normal Voice, ANDREW, Pharynx Normal, Tm's normal Respiratory: Yes: Chest Non-Tender, Lungs Clear, Normal Breath Sounds, No Respiratory Distress, No Accessory Muscle Use Neck: Yes: Within Normal Limits Breast: Yes: Breast Exam Deferred Abdominal: Yes: Normal Bowel Sounds, Non Tender, Flat, Soft Genitourinary: Yes: Within Normal Limits Back: Yes: Normal Inspection Musculoskeletal: Yes: full range of Motion, Gait Steady, Pelvis Stable, Back pain Extremities: Yes: Normal Capillary Refill, Normal Inspection, Normal Range of Motion, Non-Tender Neurological: Yes: Within Normal Limits Integumentary: Yes: Normal Color, Warm, Diaphoresis Lymphatic: Yes: Within Normal Limits - Diagnostic (1) Cannabis dependence Current Visit: Yes Status: Acute (2) Insomnia Current Visit: Yes Status: Acute Qualifiers: Insomnia type: unspecified Qualified Code(s): G47.00 - Insomnia, unspecified (3) Nicotine dependence Current Visit: Yes Status: Acute Qualifiers: Nicotine product type: cigarettes Substance use status: in withdrawal Qualified Code(s): F17.213 - Nicotine dependence, cigarettes, with withdrawal (4) Opioid dependence with withdrawal Current Visit: Yes Status: Acute (5) Hepatitis C Current Visit: Yes Status: Chronic Qualifiers: Viral hepatitis chronicity: chronic Hepatic coma status: without hepatic coma Qualified Code(s): B18.2 - Chronic viral hepatitis C (6) Back pain Current Visit: Yes Status: Acute Qualifiers: Back pain location: low back pain Chronicity: acute Back pain laterality : midline Sciatica presence: without sciatica Qualified Code(s): M54.5 - Low back pain (7) Elevated blood pressure reading in office without diagnosis of hypertension Current Visit: Yes Status: Acute Cleared for Admission [facility] - Detox or Rehab [facility] Level of Care: Medically Managed Detox Regimen/Protocol: Methadone [facility] Breath Alcohol Content Breath Alcohol Content: 0 Urine Drug Screen - Results Drug Screen Negative: No Urine Drug Screen Results: THC-Marijuana, OPI-Opiates
[2018-04-29] MEDS ORDERED: IBUPROFEN 400 MG TABLET (FP) PO PRN (19:28)
[2018-04-29] MEDS ORDERED: LOPERAMIDE HCL 2 MG CAPSULE PO PRN (19:28)
[2018-04-29] MEDS ORDERED: MAG HYDROX/AL HYDROX/SIMETH 30 ML UNIT-DOSE CUP PO PRN (19:28)
[2018-04-29] MEDS ORDERED: MENTHOL/PHENOL 1 EACH UD MM PRN (19:28)
[2018-04-29] MEDS ORDERED: MAGNESIUM HYDROX 2400MG/30ML ORAL SUSPENSION 30 ML CUP PO PRN (19:28)
[2018-04-29] MEDS ORDERED: MAGNESIUM CITRATE 300 ML BOTTLE PO PRN (19:28)
[2018-04-29] MEDS ORDERED: NICOTINE POLACRILEX 4 MG GUM BC PRN (19:28)
[2018-04-29] MEDS ORDERED: hydrOXYzine PAMOATE 50 MG CAPSULE (FP) PO PRN (19:28)
[2018-04-29] MEDS ORDERED: ACETAMINOPHEN 325 MG TABLET (FP) PO PRN (19:28)
[2018-04-29] MEDS ORDERED: guaiFENesin/D-METHORPHAN HB 10 ML UNIT-DOSE CUPS PO PRN (19:28)
[2018-04-29] MEDS ORDERED: P-EPHED 60MG/TRIPROLIDI 2.5MG TABLET PO PRN (19:28)
[2018-04-29] MEDS ORDERED: cloNIDine HCL 0.1 MG TABLET PO ONE (20:45)
[2018-04-29] MEDS ORDERED: METHADONE HCL 10 MG TABLET (FOR DETOX USE ONLY) PO ONE ×2 (20:45→23:00)
[2018-04-29] MEDS ORDERED: MELATONIN 5 MG TABLETS PO PRN (22:00)
[2018-04-29] MEDS ORDERED: METHADONE HCL 10 MG TABLET (FOR DETOX USE ONLY) ONE (23:17)
[2018-04-29] MEDS: THIAMINE HCL 100 MG TABLET (FP) PO SCH (23:21)
[2018-04-29] MEDS: diazePAM 5 MG TABLET PO PRN (23:21)
[2018-04-29] MEDS: CYCLOBENZAPRINE HCL 5 MG TABLET PO SCH (23:21)
[2018-04-29] MEDS: LIDOCAINE 5% TOPICAL PATCH TP SCH (23:23)
[2018-04-29] MEDS: LIDOCAINE PATCH REMOVAL MC SCH (23:23)
[2018-04-30] MEDS: CYCLOBENZAPRINE HCL 5 MG TABLET PO SCH ×3 (07:06→22:29)
--- NOTE | 2018-04-30 09:39 | EKG ---
Test Reason : Blood Pressure : / mmHG Vent. Rate : 082 BPM Atrial Rate : 082 BPM P-R Int : 136 ms QRS Dur : 086 ms QT Int : 380 ms P-R-T Axes : 069 073 072 degrees QTc Int : 443 ms NORMAL SINUS RHYTHM NORMAL ECG WHEN COMPARED WITH ECG OF 04-FEB-2018 14:54, NO SIGNIFICANT CHANGE WAS FOUND Confirmed by PAULINA CARTWRIGHT MD ([id number]) on 04/30/2018 9:38:42 AM Referred By: Confirmed By:PAULINA CARTWRIGHT MD
[2018-04-30] MEDS ORDERED: METHADONE HCL 10 MG TABLET (FOR DETOX USE ONLY) PO ONE (10:00)
[2018-04-30 10:14] LABS: HEMOGLOBIN 14.3 GM/dL (11.7-16.9); MCH 30.5 pg (25.7-33.7); MCHC 34.9 g/dl (32.0-35.9); MEAN CELL VOLUME 87.5 fl (80-96); MEAN PLT VOLUME 8.6 fl (7.5-11.1); PLATELET COUNT 185 K/MM3 (134-434); RBC 4.68 M/mm3 (4.00-5.60); WHITE BLOOD COUNT 5.5 K/mm3 (4.0-10.0)
[2018-04-30] MEDS: LIDOCAINE 5% TOPICAL PATCH TP SCH (10:35)
[2018-04-30] MEDS: PRENATAL VITAMINS W/ FOLIC ACID TABLET (FP) PO SCH (10:35)
[2018-04-30] MEDS: NICOTINE 21 MG/24 HOURS TOPICAL PATCH TD SCH (10:36)
[2018-04-30] MEDS: diazePAM 5 MG TABLET PO PRN ×3 (10:36→22:29)
--- NOTE | 2018-04-30 12:21 | PN ---
BHS COWS - Scale Resting Pulse: 1= [place] 81-100 Sweatin= Chills/Flushing Restless Observation: 0= Sits Still Pupil Size: 0= Normal to Room Light Bone or Joint Aches: 4=Acute Joint/Muscle Pain Runny Nose/ Eye Tearin= Nasal Congestion GI Upset > 30mins: 0= None Tremor Observation of Outstretched Hands: 2= Slight Tremor Visible Yawning Observation: 1= 1-2x During Session Anxiety or Irritability: 2=Irritable/Anxious Goose Flesh Skin: 3=Piloerection COWS Score: 15 BHS Progress Note (SOAP) Subjective: Tremors, Nausea, H/A, Body Aches, Chills. Objective: PATIENT A & O X 3. NO ACUTE DISTRESS. 04/30/18 12:19 Vital Signs Temperature 96.7 F L 04/30/18 09:36 Pulse Rate 84 04/30/18 09:36 Respiratory Rate 18 04/30/18 09:36 Blood Pressure 123/82 04/30/18 09:36 O2 Sat by Pulse Oximetry (%) Laboratory Tests 04/30/18 09:00 WBC 5.5 D RBC 4.68 Hgb 14.3 D Hct 41.0 MCV 87.5 MCH 30.5 MCHC 34.9 RDW 14.0 Plt Count 185 D MPV 8.6 CBC RESULTS NOTED. CMP, RPR, UA RESULTS PENDING. 04/30/18 12:20 Assessment: 04/30/18 12:20 WITHDRAWAL SYMPTOMS. Plan: CONTINUE DETOX. INCREASE DAILY PO FLUID INTAKE.
[2018-04-30 13:19] LABS: ALBUMIN 3.3 g/dl (3.4-5.0); ANION GAP 9 (8-16); BILIRUBIN,TOTAL 0.3 mg/dL (0.2-1.0); BLOOD UREA NITROGEN 11 mg/dL (7-18); CALCIUM 8.8 mg/dL (8.5-10.1); CHLORIDE 107 mmol/L (98-107); CO2 26 mmol/L (21-32); CREATININE 0.9 mg/dL (0.7-1.3); GLUCOSE,RANDOM 87 mg/dL (74-106); POTASSIUM 4.2 mmol/L (3.5-5.1); SGOT/AST 35 U/L (15-37); SGPT/ALT 63 U/L (12-78); SODIUM 142 mmol/L (136-145)
[2018-04-30 13:21] LABS: ALK PHOS 126 U/L (45-117)
[2018-04-30 14:32] LABS: URINE APPEARANCE CLEAR; URINE BILIRUBIN NEGATIVE (<2.0 mg/dL); URINE COLOR STRAW; URINE GLUCOSE (UA) NEGATIVE (NEGATIVE); URINE KETONE NEGATIVE (NEGATIVE); URINE LEUK ESTERASE NEGATIVE (NEGATIVE); URINE NITRITE NEGATIVE (NEGATIVE); URINE PROTEIN NEGATIVE (NEGATIVE); URINE UROBILINOGEN NEGATIVE mg/dL (0.2-1.0)
--- NOTE | 2018-04-30 15:10 | CONSULT ---
[facility] Psychiatric Consult - Data Date of interview: 04/30/18 Admission source: [facility] Identifying data: Patient is approached on three occasions for interview." I don 't want to talk.Leave me alone." Mr Rivera declines to cooperate.Nursing staff is made aware.
[2018-04-30] MEDS: THIAMINE HCL 100 MG TABLET (FP) PO SCH (22:29)
[2018-04-30] MEDS: LIDOCAINE PATCH REMOVAL MC SCH (22:29)
[2018-05-01] MEDS: CYCLOBENZAPRINE HCL 5 MG TABLET PO SCH ×2 (10:00→13:47)
[2018-05-01] MEDS ORDERED: METHADONE HCL 5 MG TABLET (FOR DETOX USE ONLY) PO ONE (10:00)
[2018-05-01] MEDS: LIDOCAINE 5% TOPICAL PATCH TP SCH (10:37)
[2018-05-01] MEDS: PRENATAL VITAMINS W/ FOLIC ACID TABLET (FP) PO SCH (10:37)
[2018-05-01] MEDS: NICOTINE 21 MG/24 HOURS TOPICAL PATCH TD SCH (10:38)
[2018-05-01] MEDS: diazePAM 5 MG TABLET PO PRN (10:38)
[2018-05-01] MEDS ORDERED: PNEUMOCOCCAL 23 VACCINE 0.5 ML VIAL IM ONE (12:00)
[2018-05-01] MEDS ORDERED: PNEUMOC 13-VAL CONJ-DIP CRM/PF 0.5 ML DISP.SYRIN IM ONE (12:00)
--- NOTE | 2018-05-01 12:52 | PN ---
BHS COWS - Scale Resting Pulse: 0= [place] 80 or Below Sweatin= Chills/Flushing Restless Observation: 0= Sits Still Pupil Size: 0= Normal to Room Light Bone or Joint Aches: 2= Severe Diffuse Aches Runny Nose/ Eye Tearin= Runny Nose/Eyes GI Upset > 30mins: 2= Nausea/Diarrhea Tremor Observation of Outstretched Hands: 0= None Yawning Observation: 2= >3x During Session Anxiety or Irritability: 2=Irritable/Anxious Goose Flesh Skin: 0=Smooth Skin COWS Score: 11 BHS Progress Note (SOAP) Subjective: Body Aches, Stomach Cramping, Nausea, H/A, Interrupted Sleep, Sweating. Objective: PATIENT A & O X 3, OBSERVED AMBULATING ON UNIT. NO ACUTE DISTRESS. 05/01/18 12:51 Vital Signs Temperature 96.5 F L 04/30/18 21:51 Pulse Rate 80 04/30/18 21:51 Respiratory Rate 18 05/01/18 00:30 Blood Pressure 132/90 04/30/18 21:51 O2 Sat by Pulse Oximetry (%) Laboratory Tests 04/30/18 04/30/18 04/30/18 06:40 06:40 09:00 WBC 5.5 D RBC 4.68 Hgb 14.3 D Hct 41.0 MCV 87.5 MCH 30.5 MCHC 34.9 RDW 14.0 Plt Count 185 D MPV 8.6 Sodium 142 Potassium 4.2 Chloride 107 D Carbon Dioxide 26 Anion Gap 9 BUN 11 D Creatinine 0.9 D Creat Clearance w eGFR > 60 Random Glucose 87 D Calcium 8.8 Total Bilirubin 0.3 D AST 35 D ALT 63 Alkaline Phosphatase 126 H D Total Protein 7.0 D Albumin 3.3 L D Urine Color Urine Appearance Urine pH Ur Specific [place] Urine Protein Urine Glucose (UA) Urine Ketones Urine Blood Urine Nitrite Urine Bilirubin Urine Urobilinogen Ur Leukocyte Esterase RPR Titer Nonreactive 04/30/18 13:20 WBC RBC Hgb Hct MCV MCH MCHC RDW Plt Count MPV Sodium Potassium Chloride Carbon Dioxide Anion Gap BUN Creatinine Creat Clearance w eGFR Random Glucose Calcium Total Bilirubin AST ALT Alkaline Phosphatase Total Protein Albumin Urine Color Straw Urine Appearance Clear Urine pH 7.0 D Ur Specific [place] 1.002 Urine Protein Negative Urine Glucose (UA) Negative Urine Ketones Negative Urine Blood Negative Urine Nitrite Negative Urine Bilirubin Negative Urine Urobilinogen Negative Ur Leukocyte Esterase Negative RPR Titer LABS NOTED. Assessment: 05/01/18 12:52 WITHDRAWAL SYMPTOMS. Plan: CONTINUE DETOX. INCREASE DAILY PO FLUID INTAKE. ENCOURAGE AMBULATION.
[2018-05-01 13:31] VITALS: BP 116/80; PULSE 88; TEMP 97.4
[2018-05-02] MEDS ORDERED: METHADONE HCL 5 MG TABLET (FOR DETOX USE ONLY) PO ONE (10:00)
[2018-05-03] MEDS ORDERED: METHADONE HCL 10 MG TABLET (FOR DETOX USE ONLY) PO ONE (10:00)
[2018-05-04] MEDS ORDERED: METHADONE HCL 5 MG TABLET (FOR DETOX USE ONLY) PO ONE (06:00)
== END 2018-05-01 15:08 | disposition left against medical advice (07) | DRG 770 ==
LOC: YASAS 17:05 → Y3N 20:31
PROVIDERS: ADMIT Surgery; ATTEND Surgery
PROC: HZ2ZZZZ Detoxification Services for Substance Abuse Treatment (ICD-10-PCS; principal; 2018-04-29)
DX: F11.23 Opioid dependence with withdrawal (principal); F12.20 Cannabis dependence, uncomplicated; F17.213 Nicotine dependence, cigarettes, with withdrawal; R03.0 Elevated blood-pressure reading, without diagnosis of hypertension; M54.5 Low back pain; G47.00 Insomnia, unspecified; B18.2 Chronic viral hepatitis C
CPT/HCPCS: 36415; 80053; 81003; 85027; 86593; 93005; 93010; J0735

== ENCOUNTER 2018-10-08 16:54 | Inpatient (IN) | payer OTHER ==
[2018-10-08 17:50] VITALS: BMI 29.5
--- NOTE | 2018-10-08 20:34 | HP ---
COWS - Scale Resting Pulse: 1= [place] 81-100 Sweatin=Flushed/Facial Moisture Restless Observation: 3= Extraneous Movement Pupil Size: 1= Pupils >than Normal Bone or Joint Aches: 4=Acute Joint/Muscle Pain Runny Nose/ Eye Tearin= Runny Nose/Eyes GI Upset > 30mins: 1= Stomach Cramp Tremor Observation: 4= Gross Tremor/Twitching Yawning Observation: 1= 1-2x During Session Anxiety or Irritability: 2=Irritable/Anxious Goose Flesh Skin: 0=Smooth Skin COWS Score: 21 CIWA Score - Admission Criteria OASAS Guidelines: Admission for Medically Managed Detox: Requires at least one of the followin. CIWA greater than 12 2. Seizures within the past 24 hours 3. Delirium tremens within the past 24 hours 4. Hallucinations within the past 24 hours 5. Acute intervention needed for co occurring medical disorder 6. Acute intervention needed for co occurring psychiatric disorder 7. Severe withdrawal that cannot be handled at a lower level of care (continued vomiting, continued diarrhea, abnormal vital signs) requiring intravenous medication and/or fluids 8. Admission ROS [facility] Chief Complaint: SEEKING DEOX TXMENT W/ C/O OF WITHDRAWAL SX'S Allergies/Adverse Reactions: Allergies Allergy/AdvReac Type Severity Reaction Status Date / Time No Known Allergies Allergy Verified 04/29/18 17:31 History of Present Illness: 48 Y.O. MALE WITH HX/O OPIOID DEPENDENCE HERE FOR DETOX. CLIENT IS KNOWN TO THIS PROGRAM. LAST HERE 05/01/2018. HE IS SELF REFERRED TODAY. DENIES DETOX ELSEWHERE SINCE LAST ADMISSION HERE. HE PRESENTS TODAY WITH C/O WITHDRAWAL SX' S. COWS 21. REPORTS LONGEST CLEAN TIME 7 MONTHS, SELF MAINTAINED. REPORTS 2 MONTHS CLEAN IN THE PAST YEAR. DENIES HX/O OVERDOSE, SI/HI, AVH. REQUESTING AN ABBREVIATED DETOX HE NEEDS TO REPORT TO WORK ON 10/13 8AM PMHX- DENIES PSYCH- DENIES MEDS- DENIES Exam Limitations: No Limitations - Ebola screening Have you traveled outside of the country in the last 21 days: No Have you had contact with anyone from an Ebola affected area: No Have you been sick,other than usual withdrawal symptoms: No Do you have a fever: No - Review of Systems Constitutional: Chills, Loss of Appetite, Malaise, Night Sweats, Changes in sleep EENT: reports: Ear Discharge (watery eyes), Nose Congestion (runny nose) Respiratory: reports: Shortness of Breath Cardiac: reports: No Symptoms Reported GI: reports: Nausea, Poor Appetite, Abdominal cramping : reports: No Symptoms Reported (DENIES) Musculoskeletal: reports: Joint Pain Integumentary: reports: Flushing Neuro: reports: Tremors Endocrine: reports: No Symptoms Reported Hematology: reports: No Symptoms Reported Psychiatric: reports: No Sypmtoms Reported Other Systems: Reviewed and Negative Patient History - Patient Medical History Hx Anemia: No Hx Asthma: No Hx Chronic Obstructive Pulmonary Disease (COPD): No Hx Cancer: No Hx Cardiac Disorders: No Hx Congestive Heart Failure: No Hx Hypertension: No Hx Hypercholesterolemia: No Hx Pacemaker: No HX Cerebrovascular Accident: No Hx Seizures: No Hx Dementia: No Hx Diabetes: No Hx Gastrointestinal Disorders: No Hx Liver Disease: No Hx Genitourinary Disorders: No Hx Sexually Transmitted Disorders: No Hx Renal Disease (ESRD): No Hx Thyroid Disease: No Hx Human Immunodeficiency Virus (HIV): No Hx Hepatitis C: Yes Hx Depression: No Hx Suicide Attempt: No Hx Bipolar Disorder: No Hx Schizophrenia: No Other Medical History: DENIES - Patient Surgical History Past Surgical History: Yes Hx Neurologic Surgery: No Hx Cataract Extraction: No Hx Cardiac Surgery: No Hx Lung Surgery: No Hx Breast Surgery: No Hx Breast Biopsy: No Hx Abdominal Surgery: No Hx Appendectomy: No Hx Cholecystectomy: No Hx Genitourinary Surgery: No Hx Section: No Hx Orthopedic Surgery: No Other Surgical History: TONSILECTOMY @ 12 YEARS OLD Anesthesia Reaction: No - PPD History Previous Implant?: Yes Documented Results: Negative w/proof Implanted On Prior [facility] Admission?: Yes Date: 06/29/17 Results: NEGATIVE PPD to be Administered?: Yes - Smoking Cessation Smoking history: Current every day smoker Have you smoked in the past 12 months: Yes Aproximately how many cigarettes per day: 40 Cigars Per Day: 0 Hx Chewing Tobacco Use: No Initiated information on smoking cessation: Yes 'Breaking Loose' booklet given: 10/08/18 - Substance & Tx. History Hx Alcohol Use: Yes Hx Substance Use: Yes Substance Use Type: Heroin Hx Substance Use Treatment: Yes ([facility]) - Substances Abused Heroin Route: Injection Frequency: Daily Amount used: 15 BAGS Age of first use: 44 Date of Last Use: 10/08/18 Family Disease History - Family Disease History Family Disease History: Heart Disease: Mother (), Other: Father ( ), Mother, Sister () Admission Physical Exam [facility] - Vital Signs Vital Signs: Vital Signs - 24 hr 10/08/18 17:36 Temperature 98.2 F Pulse Rate 83 Respiratory 18 Rate Blood Pressure 148/81 - Physical General Appearance: Yes: Appropriately Dressed, Tremorous, Sweating, Anxious HEENTM: Yes: EOMI, Normocephalic, Normal Voice, ANDREW, Pharynx Normal, Nasal Congestion, Rhinorrhea, Other (MISSING TEETH) Respiratory: Yes: Chest Non-Tender, Lungs Clear, Normal Breath Sounds, No Respiratory Distress, No Accessory Muscle Use Neck: Yes: No masses,lesions,Nodules, Supple, Trachea in good position Breast: Yes: Breast Exam Deferred Cardiology: Yes: Regular Rhythm, Regular Rate, S1, S2 Abdominal: Yes: Non Tender, Soft, Protuberent Genitourinary: Yes: Within Normal Limits (NO C/O) Back: Yes: Normal Inspection Musculoskeletal: Yes: full range of Motion, Gait Steady Extremities: Yes: Normal Range of Motion, Non-Tender, Tremors Neurological: Yes: photoresist contact printer II-XII NML intact, Fully Oriented, Alert, Motor Strength 5/5, Depressed Affect Integumentary: Yes: Warm, Diaphoresis, Track Calderon Lymphatic: Yes: Within Normal Limits - Diagnostic (1) IVDU (intravenous drug user) Current Visit: Yes Status: Acute (2) Drug-induced mood disorder Current Visit: No Status: Acute (3) Nicotine dependence Current Visit: No Status: Acute Qualifiers: Nicotine product type: cigarettes Substance use status: in withdrawal Qualified Code(s): F17.213 - Nicotine dependence, cigarettes, with withdrawal (4) Opioid dependence with withdrawal Current Visit: No Status: Acute (5) Substance induced mood disorder Current Visit: No Status: Acute (6) Hepatitis C Current Visit: No Status: Chronic Qualifiers: Viral hepatitis chronicity: chronic Hepatic coma status: without hepatic coma Qualified Code(s): B18.2 - Chronic viral hepatitis C (7) Anxiety and depression Current Visit: No Status: Suspected Comment: Self reports. Cleared for Admission [facility] - Detox or Rehab [facility] Level of Care: Medically Managed Detox Regimen/Protocol: Methadone Claeared for Rehab Admission: No BHS Breath Alcohol Content Breath Alcohol Content: 0 Urine Drug Screen - Results Drug Screen Negative: No Urine Drug Screen Results: THC-Marijuana, OPI-Opiates, OXY-Oxycodone, FEN- Fentanyl
[2018-10-08] MEDS ORDERED: guaiFENesin/D-METHORPHAN HB 10 ML UNIT-DOSE CUPS PO PRN (20:50)
[2018-10-08] MEDS ORDERED: ACETAMINOPHEN 325 MG TABLET (FP) PO PRN (20:50)
[2018-10-08] MEDS ORDERED: P-EPHED 60MG/TRIPROLIDI 2.5MG TABLET PO PRN (20:50)
[2018-10-08] MEDS ORDERED: MENTHOL/PHENOL 1 EACH UD MM PRN (20:50)
[2018-10-08] MEDS ORDERED: LOPERAMIDE HCL 2 MG CAPSULE PO PRN (20:50)
[2018-10-08] MEDS ORDERED: METHADONE HCL 10 MG TABLET (FOR DETOX USE ONLY) PO ONE ×2 (20:50→23:00)
[2018-10-08] MEDS ORDERED: MAGNESIUM CITRATE 300 ML BOTTLE PO PRN (20:50)
[2018-10-08] MEDS ORDERED: MAGNESIUM HYDROX 2400MG/30ML ORAL SUSPENSION 30 ML CUP PO PRN (20:50)
[2018-10-08] MEDS ORDERED: NICOTINE POLACRILEX 2 MG GUM BUC PRN (20:50)
[2018-10-08] MEDS ORDERED: IBUPROFEN 400 MG TABLET (FP) PO PRN (20:50)
[2018-10-08] MEDS ORDERED: MAG HYDROX/AL HYDROX/SIMETH 30 ML UNIT-DOSE CUP PO PRN (20:50)
[2018-10-08] MEDS: diazePAM 5 MG TABLET PO PRN (22:09)
[2018-10-08] MEDS: THIAMINE HCL 100 MG TABLET (FP) PO SCH (23:25)
[2018-10-09 02:59] LABS: URINE APPEARANCE CLEAR; URINE BILIRUBIN NEGATIVE (<2.0 mg/dL); URINE COLOR STRAW; URINE GLUCOSE (UA) NEGATIVE (NEGATIVE); URINE KETONE NEGATIVE (NEGATIVE); URINE LEUK ESTERASE NEGATIVE (NEGATIVE); URINE NITRITE NEGATIVE (NEGATIVE); URINE PROTEIN NEGATIVE (NEGATIVE); URINE UROBILINOGEN NEGATIVE mg/dL (0.2-1.0)
[2018-10-09] MEDS ORDERED: METHADONE HCL 10 MG TABLET (FOR DETOX USE ONLY) PO ONE (10:00)
[2018-10-09 10:25] LABS: HEMATOCRIT 41.8 % (35.4-49); HEMOGLOBIN 14.8 GM/dL (11.7-16.9); MCH 30.6 pg (25.7-33.7); MCHC 35.5 g/dl (32.0-35.9); MEAN CELL VOLUME 86.4 fl (80-96); PLATELET COUNT 190 K/MM3 (134-434); RBC 4.84 M/mm3 (4.00-5.60); RDW 13.4 % (11.9-15.9); WHITE BLOOD COUNT 8.3 K/mm3 (4.0-10.0)
[2018-10-09] MEDS: NICOTINE 21 MG/24 HOURS TOPICAL PATCH TD SCH (10:25)
[2018-10-09] MEDS: PRENATAL VITAMINS W/ FOLIC ACID TABLET (FP) PO SCH (10:25)
[2018-10-09] MEDS: diazePAM 5 MG TABLET PO PRN ×2 (10:25→19:44)
[2018-10-09 10:29] LABS: ALBUMIN 3.4 g/dl (3.4-5.0); ALK PHOS 174 U/L (45-117); ANION GAP 8 MMOL/L (8-16); BILIRUBIN,TOTAL 0.6 mg/dL (0.2-1); BLOOD UREA NITROGEN 18 mg/dL (7-18); CALCIUM 8.7 mg/dL (8.5-10.1); CHLORIDE 105 mmol/L (98-107); CO2 27 mmol/L (21-32); GLUCOSE,RANDOM 76 mg/dL (74-106); POTASSIUM 4.3 mmol/L (3.5-5.1); SGOT/AST 78 U/L (15-37); SGPT/ALT 117 U/L (13-61); SODIUM 139 mmol/L (136-145); TOT PROT 7.5 g/dl (6.4-8.2)
--- NOTE | 2018-10-09 11:19 | PN ---
BHS COWS - Scale Resting Pulse: 1= [place] 81-100 Sweatin= Chills/Flushing Restless Observation: 3= Extraneous Movement Pupil Size: 0= Normal to Room Light Bone or Joint Aches: 2= Severe Diffuse Aches Runny Nose/ Eye Tearin= Runny Nose/Eyes GI Upset > 30mins: 3= Vomiting/Diarrhea Tremor Observation of Outstretched Hands: 2= Slight Tremor Visible Yawning Observation: 1= 1-2x During Session Anxiety or Irritability: 2=Irritable/Anxious Goose Flesh Skin: 0=Smooth Skin COWS Score: 17 S Progress Note (SOAP) Subjective: Sweating, teary eyes, interrupted sleep Objective: 10/09/18 11:18 Last Vital Signs Temp Pulse Resp BP Pulse Ox 98.4 F 89 16 117/79 10/09/18 09:39 10/09/18 09:39 10/09/18 09:39 10/09/18 09:39 Laboratory Tests 10/08/18 10/09/18 10/09/18 22:39 07:50 07:50 WBC 8.3 RBC 4.84 Hgb 14.8 Hct 41.8 MCV 86.4 MCH 30.6 MCHC 35.5 RDW 13.4 Plt Count 190 MPV 9.0 Sodium 139 Potassium 4.3 Chloride 105 Carbon Dioxide 27 Anion Gap 8 BUN 18 Creatinine 1.0 Creat Clearance w eGFR > 60 Random Glucose 76 Calcium 8.7 Total Bilirubin 0.6 AST 78 H ALT 117 H Alkaline Phosphatase 174 H Total Protein 7.5 Albumin 3.4 Urine Color Straw Urine Appearance Clear Urine pH 5.0 D Ur Specific [place] 1.008 L Urine Protein Negative Urine Glucose (UA) Negative Urine Ketones Negative Urine Blood Negative Urine Nitrite Negative Urine Bilirubin Negative Urine Urobilinogen Negative Ur Leukocyte Esterase Negative Labs reviewed Assessment: 10/09/18 11:18 Withdrawal symptoms Plan: Continue detox Encouraged PO water intake
[2018-10-09] MEDS: THIAMINE HCL 100 MG TABLET (FP) PO SCH (22:23)
[2018-10-09] MEDS: MELATONIN 5 MG TABLETS PO PRN (22:23)
[2018-10-10] MEDS ORDERED: METHADONE HCL 5 MG TABLET (FOR DETOX USE ONLY) PO ONE (10:00)
[2018-10-10] MEDS: diazePAM 5 MG TABLET PO PRN ×2 (10:16→22:48)
[2018-10-10] MEDS: NICOTINE 21 MG/24 HOURS TOPICAL PATCH TD SCH (10:16)
[2018-10-10] MEDS: PRENATAL VITAMINS W/ FOLIC ACID TABLET (FP) PO SCH (10:16)
--- NOTE | 2018-10-10 12:11 | PN ---
BHS COWS - Scale Resting Pulse: 0= [place] 80 or Below Sweatin= Chills/Flushing Restless Observation: 1= Difficult to Sit Still Pupil Size: 0= Normal to Room Light Bone or Joint Aches: 2= Severe Diffuse Aches Runny Nose/ Eye Tearin= None GI Upset > 30mins: 3= Vomiting/Diarrhea Tremor Observation of Outstretched Hands: 2= Slight Tremor Visible Yawning Observation: 0= None Anxiety or Irritability: 2=Irritable/Anxious Goose Flesh Skin: 0=Smooth Skin COWS Score: 11 S Progress Note (SOAP) Subjective: PATIENT C/O NAUSEA/VOMITING X 2, ANXIOUS/IRRITABLE, CHILLS AND SWEATS. Objective: 10/10/18 12:09 Vital Signs Temperature 96.8 F L 10/10/18 10:10 Pulse Rate 59 L 10/10/18 10:10 Respiratory Rate 18 10/10/18 10:10 Blood Pressure 140/85 10/10/18 10:10 O2 Sat by Pulse Oximetry (%) Laboratory Tests 10/08/18 10/09/18 10/09/18 22:39 07:50 07:50 WBC 8.3 RBC 4.84 Hgb 14.8 Hct 41.8 MCV 86.4 MCH 30.6 MCHC 35.5 RDW 13.4 Plt Count 190 MPV 9.0 Sodium 139 Potassium 4.3 Chloride 105 Carbon Dioxide 27 Anion Gap 8 BUN 18 Creatinine 1.0 Creat Clearance w eGFR > 60 Random Glucose 76 Calcium 8.7 Total Bilirubin 0.6 AST 78 H ALT 117 H Alkaline Phosphatase 174 H Total Protein 7.5 Albumin 3.4 Urine Color Straw Urine Appearance Clear Urine pH 5.0 D Ur Specific [place] 1.008 L Urine Protein Negative Urine Glucose (UA) Negative Urine Ketones Negative Urine Blood Negative Urine Nitrite Negative Urine Bilirubin Negative Urine Urobilinogen Negative Ur Leukocyte Esterase Negative RPR Titer 10/09/18 07:50 WBC RBC Hgb Hct MCV MCH MCHC RDW Plt Count MPV Sodium Potassium Chloride Carbon Dioxide Anion Gap BUN Creatinine Creat Clearance w eGFR Random Glucose Calcium Total Bilirubin AST ALT Alkaline Phosphatase Total Protein Albumin Urine Color Urine Appearance Urine pH Ur Specific [place] Urine Protein Urine Glucose (UA) Urine Ketones Urine Blood Urine Nitrite Urine Bilirubin Urine Urobilinogen Ur Leukocyte Esterase RPR Titer Nonreactive PE: SKIN WARM, + FACIAL MOISTURE ALERT AND ORIENTED X 3 EXT FULL ROM, + TREMORS ANXIOUS Assessment: 10/10/18 12:10 WITHDRAWAL SX Plan: CONTINUE DETOX TIGAN 200MG IM EVERY 8 HRS PRN ENCOURAGE ORAL FLUIDS CONTINUE TO MONITOR
[2018-10-10] MEDS: TRIMETHOBENZAMIDE HCL 200MG/2ML INJ IM PRN ×2 (14:14→23:58)
[2018-10-10] MEDS: MELATONIN 5 MG TABLETS PO PRN (22:48)
[2018-10-10] MEDS: THIAMINE HCL 100 MG TABLET (FP) PO SCH (22:48)
[2018-10-11 09:36] VITALS: BP 145/99; PULSE 76; TEMP 97.7
[2018-10-11] MEDS ORDERED: METHADONE HCL 10 MG TABLET (FOR DETOX USE ONLY) PO ONE (10:00)
[2018-10-11] MEDS: diazePAM 5 MG TABLET PO PRN (10:29)
[2018-10-11] MEDS: NICOTINE 21 MG/24 HOURS TOPICAL PATCH TD SCH (10:29)
[2018-10-11] MEDS: PRENATAL VITAMINS W/ FOLIC ACID TABLET (FP) PO SCH (10:29)
--- NOTE | 2018-10-11 14:32 | PN ---
[facility] Progress Note Note: Called back to the unit by RN after a.m round re - pt request to leave. When asked, pt states "I will rather just be in my own bed, watching TV". Pt earlier had reported vomiting. States vomiting has subsided now. No active vomiting now or in a.m rounds. Facial flusing, some tremors noted No resp distress noted. Pt not receptive to education to stay despite being told that he is still in withdrawals. states he will be fine and will take care of self at home and has to go back to work on saturday. Pt will sign out AMA
--- NOTE | 2018-10-11 14:37 | DS ---
[facility] Detox Discharge Summary Admission Date: 10/08/18 Discharge Date: 10/11/18 - History Additional Comments: pls see notes Pt is leaving unit AMA Denies any home meds - Physical Exam Results Vital Signs: Vital Signs Temperature 97.7 F 10/11/18 09:35 Pulse Rate 76 10/11/18 09:35 Respiratory Rate 20 10/11/18 09:35 Blood Pressure 145/99 10/11/18 09:35 O2 Sat by Pulse Oximetry (%) Pertinent Admission Physical Exam Findings: withdrawal sx - Medication Discharge Medications: Ambulatory Orders NK [No Known Home Medication] 05/22/16 - Diagnosis (1) IVDU (intravenous drug user) Current Visit: Yes Status: Acute (2) Opioid dependence with withdrawal Current Visit: Yes Status: Acute (3) Hepatitis C Current Visit: Yes Status: Chronic Qualifiers: Viral hepatitis chronicity: chronic Hepatic coma status: without hepatic coma Qualified Code(s): B18.2 - Chronic viral hepatitis C (4) Nicotine dependence Current Visit: Yes Status: Chronic Qualifiers: Nicotine product type: cigarettes Substance use status: in withdrawal Qualified Code(s): F17.213 - Nicotine dependence, cigarettes, with withdrawal (5) Alcohol abuse Current Visit: No Status: Acute (6) Back pain Current Visit: No Status: Acute Qualifiers: Back pain location: low back pain Chronicity: acute Back pain laterality : midline Sciatica presence: without sciatica Qualified Code(s): M54.5 - Low back pain (7) Cannabis dependence Current Visit: No Status: Acute (8) Cocaine abuse Current Visit: No Status: Acute (9) Drug-induced mood disorder Current Visit: No Status: Acute (10) Elevated blood pressure reading in office without diagnosis of hypertension Current Visit: No Status: Acute (11) Hyperglycemia Current Visit: No Status: Acute (12) Substance induced mood disorder Current Visit: No Status: Acute (13) Substance-induced sleep disorder Current Visit: No Status: Acute (14) Anxiety and depression Current Visit: No Status: Suspected - AMA Did Patient Leave Against Medical Advice: Yes
[2018-10-12] MEDS ORDERED: METHADONE HCL 5 MG TABLET (FOR DETOX USE ONLY) PO ONE (06:00)
== END 2018-10-11 14:10 | disposition left against medical advice (07) | DRG 770 ==
LOC: YASAS 16:54 → Y3N 20:24
PROVIDERS: ADMIT Neuromusculoskeletal Medicine & OMM; ATTEND Neuromusculoskeletal Medicine & OMM
PROC: HZ2ZZZZ Detoxification Services for Substance Abuse Treatment (ICD-10-PCS; principal; 2018-10-08)
DX: F11.23 Opioid dependence with withdrawal (principal); F10.10 Alcohol abuse, uncomplicated; F14.10 Cocaine abuse, uncomplicated; F12.20 Cannabis dependence, uncomplicated; F17.210 Nicotine dependence, cigarettes, uncomplicated; F19.282 Other psychoactive substance dependence with psychoactive substance-induced sleep disorder; F19.24 Other psychoactive substance dependence with psychoactive substance-induced mood disorder; F41.8 Other specified anxiety disorders; F32.9 Major depressive disorder, single episode, unspecified; M54.5 Low back pain; R03.0 Elevated blood-pressure reading, without diagnosis of hypertension; R73.9 Hyperglycemia, unspecified; B18.2 Chronic viral hepatitis C
CPT/HCPCS: 36415; 80053; 81003; 85027; 86593

== ENCOUNTER 2019-01-07 11:11 | Inpatient (IN) | payer OTHER ==
[2019-01-07 13:33] VITALS: BMI 29.5
--- NOTE | 2019-01-07 14:15 | HP ---
COWS - Scale Resting Pulse: 1= [place] 81-100 Sweatin= Chills/Flushing Restless Observation: 3= Extraneous Movement Pupil Size: 1= Pupils >than Normal Bone or Joint Aches: 2= Severe Diffuse Aches Runny Nose/ Eye Tearin= Runny Nose/Eyes GI Upset > 30mins: 2= Nausea/Diarrhea Tremor Observation: 2= Slight Tremor Visible Yawning Observation: 1= 1-2x During Session Anxiety or Irritability: 2=Irritable/Anxious Goose Flesh Skin: 0=Smooth Skin COWS Score: 17 CIWA Score - Admission Criteria OASAS Guidelines: Admission for Medically Managed Detox: Requires at least one of the followin. CIWA greater than 12 2. Seizures within the past 24 hours 3. Delirium tremens within the past 24 hours 4. Hallucinations within the past 24 hours 5. Acute intervention needed for co occurring medical disorder 6. Acute intervention needed for co occurring psychiatric disorder 7. Severe withdrawal that cannot be handled at a lower level of care (continued vomiting, continued diarrhea, abnormal vital signs) requiring intravenous medication and/or fluids 8. Admission ROS S - HPI Chief Complaint: i need help to stop using heroin,marijuana Allergies/Adverse Reactions: Allergies Allergy/AdvReac Type Severity Reaction Status Date / Time No Known Allergies Allergy Verified 01/07/19 14:11 History of Present Illness: this 48 years old male with heroin and marijuana dependence,seeking detox, withdrawal symptom,last detox 10/08/18 to 10/11/18 not completed hepatitis c not treated nicotine dependence 20 cigarette/day longest period of sobriety 18 months had previous admission in detox but keep relapsing Exam Limitations: No Limitations - Ebola screening Have you traveled outside of the country in the last 21 days: No Have you had contact with anyone from an Ebola affected area: No Have you been sick,other than usual withdrawal symptoms: No - Review of Systems Constitutional: Chills, Loss of Appetite, Malaise, Night Sweats, Changes in sleep, Weakness EENT: reports: Hearing Loss, Nose Congestion Respiratory: reports: No Symptoms reported Cardiac: reports: No Symptoms Reported GI: reports: Diarrhea, Nausea, Poor Appetite, Abdominal cramping : reports: No Symptoms Reported Musculoskeletal: reports: Back Pain, Joint Pain, Muscle Pain, Joint Stiffness Integumentary: reports: Dryness Neuro: reports: Headache, Tremors Endocrine: reports: No Symptoms Reported Hematology: reports: No Symptoms Reported Psychiatric: reports: No Sypmtoms Reported, Judgement Intact, Mood/Affect Appropiate, Orientated x3, other Other Systems: Reviewed and Negative Patient History - Patient Medical History Hx Anemia: No Hx Asthma: No Hx Chronic Obstructive Pulmonary Disease (COPD): No Hx Cancer: No Hx Cardiac Disorders: No Hx Congestive Heart Failure: No Hx Hypertension: No Hx Hypercholesterolemia: No Hx Pacemaker: No HX Cerebrovascular Accident: No Hx Seizures: No Hx Dementia: No Hx Diabetes: No Hx Gastrointestinal Disorders: No Hx Liver Disease: No Hx Genitourinary Disorders: No Hx Sexually Transmitted Disorders: No Hx Renal Disease (ESRD): No Hx Thyroid Disease: No Hx Human Immunodeficiency Virus (HIV): No Hx Hepatitis C: Yes (no treatment) Hx Depression: No Hx Suicide Attempt: No Hx Bipolar Disorder: No Hx Schizophrenia: No Other Medical History: no suicidal,no homicidal - Patient Surgical History Past Surgical History: Yes Hx Neurologic Surgery: No Hx Cataract Extraction: No Hx Cardiac Surgery: No Hx Lung Surgery: No Hx Breast Surgery: No Hx Breast Biopsy: No Hx Abdominal Surgery: No Hx Appendectomy: No Hx Cholecystectomy: No Hx Genitourinary Surgery: No Hx Section: No Hx Orthopedic Surgery: No Other Surgical History: TONSILECTOMY @ 12 YEARS OLD Anesthesia Reaction: No - PPD History Previous Implant?: Yes Documented Results: Negative w/proof Date: 10/10/18 Results: NEGATIVE PPD to be Administered?: No - Smoking Cessation Smoking history: Current every day smoker Have you smoked in the past 12 months: Yes Aproximately how many cigarettes per day: 20 Cigars Per Day: 0 Hx Chewing Tobacco Use: No Initiated information on smoking cessation: Yes 'Breaking Loose' booklet given: 01/07/19 - Substance & Tx. History Hx Alcohol Use: No Hx Substance Use: Yes Substance Use Type: Heroin Hx Substance Use Treatment: Yes ([facility] 10/08/18 to 10/11/18 not complete) - Substances Abused Heroin Route: Injection Frequency: Daily Amount used: 5 bags Age of first use: 44 Date of Last Use: 01/06/19 Family Disease History - Family Disease History Family Disease History: Heart Disease: Mother (), Other: Father ( ), Mother, Sister () Admission Physical Exam [facility] - Vital Signs Vital Signs: Vital Signs - 24 hr 01/07/19 13:31 Temperature 96.4 F L Pulse Rate 82 Respiratory 18 Rate Blood Pressure 134/80 - Physical General Appearance: Yes: Moderate Distress, Tremorous, Irritable, Sweating, Anxious HEENTM: Yes: Normal ENT Inspection, Normocephalic, ANDREW Respiratory: Yes: Within Normal Limits, Lungs Clear, Normal Breath Sounds Neck: Yes: Within Normal Limits, Supple, Trachea in good position Breast: Yes: Within Normal Limits Cardiology: Yes: Within Normal Limits, Regular Rhythm, Regular Rate, S1, S2 Abdominal: Yes: Within Normal Limits, Normal Bowel Sounds, Non Tender, Soft Genitourinary: Yes: Within Normal Limits Back: Yes: Muscle Spasm Extremities: Yes: Within Normal Limits, Normal Range of Motion, Tremors Neurological: Yes: Within Normal Limits, conductor orchestra II-XII NML intact, Alert, Motor Strength 5/5 Integumentary: Yes: Dry, Track Calderon Lymphatic: Yes: Within Normal Limits - Diagnostic (1) Opioid dependence with withdrawal Current Visit: No Status: Acute (2) Back pain Current Visit: No Status: Acute Qualifiers: Back pain location: low back pain Chronicity: acute Back pain laterality : midline Sciatica presence: without sciatica Qualified Code(s): M54.5 - Low back pain (3) Cannabis dependence Current Visit: No Status: Acute (4) IVDU (intravenous drug user) Current Visit: No Status: Acute (5) Hepatitis C Current Visit: No Status: Chronic Qualifiers: Viral hepatitis chronicity: chronic Hepatic coma status: without hepatic coma Qualified Code(s): B18.2 - Chronic viral hepatitis C Cleared for Admission [facility] - Detox or Rehab [facility] Level of Care: Medically Managed Detox Regimen/Protocol: Methadone [facility] Breath Alcohol Content Breath Alcohol Content: 0 Urine Drug Screen - Results Urine Drug Screen Results: THC-Marijuana, OPI-Opiates, BZO-Benzodiazepines, FEN- Fentanyl Inpatient Rehab Admission - Rehab Decision to Admit Inpatient rehab admission?: No
[2019-01-07] MEDS ORDERED: MAGNESIUM HYDROX 2400MG/30ML ORAL SUSPENSION 30 ML CUP PO PRN (14:31)
[2019-01-07] MEDS ORDERED: hydrOXYzine PAMOATE 25 MG CAPSULE (FP) PO PRN (14:31)
[2019-01-07] MEDS ORDERED: ACETAMINOPHEN 325 MG TABLET (FP) PO PRN (14:31)
[2019-01-07] MEDS ORDERED: MAG HYDROX/AL HYDROX/SIMETH 30 ML UNIT-DOSE CUP PO PRN (14:31)
[2019-01-07] MEDS ORDERED: IBUPROFEN 400 MG TABLET (FP) PO PRN (14:31)
[2019-01-07] MEDS ORDERED: NICOTINE POLACRILEX 2 MG GUM BC PRN (14:31)
[2019-01-07] MEDS ORDERED: MENTHOL/PHENOL 1 EACH UD MM PRN (14:31)
[2019-01-07] MEDS ORDERED: LOPERAMIDE HCL 2 MG CAPSULE PO PRN (14:31)
[2019-01-07] MEDS ORDERED: METHADONE HCL 10 MG TABLET (FOR DETOX USE ONLY) PO ONE ×2 (14:31→23:00)
[2019-01-07] MEDS ORDERED: MAGNESIUM CITRATE 300 ML BOTTLE PO PRN (14:31)
[2019-01-07] MEDS ORDERED: CYCLOBENZAPRINE HCL 10 MG TABLET (FP) PO PRN (14:34)
[2019-01-07] MEDS: diazePAM 5 MG TABLET PO PRN ×2 (18:19→22:18)
[2019-01-07] MEDS: guaiFENesin/D-METHORPHAN HB 10 ML UNIT-DOSE CUPS PO PRN (21:04)
[2019-01-07] MEDS: P-EPHED 60MG/TRIPROLIDI 2.5MG TABLET PO PRN (21:04)
[2019-01-07] MEDS ORDERED: MELATONIN 5 MG TABLETS PO PRN (22:00)
[2019-01-07] MEDS: cloNIDine HCL 0.1 MG TABLET PO SCH (22:18)
[2019-01-07] MEDS: THIAMINE HCL 100 MG TABLET (FP) PO SCH (22:19)
[2019-01-08] MEDS ORDERED: METHADONE HCL 10 MG TABLET (FOR DETOX USE ONLY) PO ONE (10:00)
[2019-01-08] MEDS: cloNIDine HCL 0.1 MG TABLET PO SCH ×2 (10:38→23:01)
[2019-01-08] MEDS: PRENATAL VITAMINS W/ FOLIC ACID TABLET (FP) PO SCH (10:38)
[2019-01-08] MEDS: NICOTINE 21 MG/24 HOURS TOPICAL PATCH TD SCH (10:38)
[2019-01-08] MEDS: diazePAM 5 MG TABLET PO PRN ×2 (10:41→23:03)
[2019-01-08 11:04] LABS: HEMATOCRIT 37.9 % (35.4-49); HEMOGLOBIN 13.1 GM/dL (11.7-16.9); MCHC 34.7 g/dl (32.0-35.9); MEAN CELL VOLUME 89.5 fl (80-96); MEAN PLT VOLUME 8.8 fl (7.5-11.1); PLATELET COUNT 224 K/MM3 (134-434); RBC 4.24 M/mm3 (4.00-5.60); RDW 13.7 % (11.9-15.9)
[2019-01-08 12:16] LABS: ALBUMIN 3.6 g/dl (3.4-5.0); ALK PHOS 124 U/L (45-117); ANION GAP 8 MMOL/L (8-16); BILIRUBIN,TOTAL 0.3 mg/dL (0.2-1); BLOOD UREA NITROGEN 13 mg/dL (7-18); CHLORIDE 100 mmol/L (98-107); CO2 29 mmol/L (21-32); CREATININE 1.1 mg/dL (0.55-1.3); GLUCOSE,RANDOM 81 mg/dL (74-106); POTASSIUM 4.4 mmol/L (3.5-5.1); SGOT/AST 30 U/L (15-37); SGPT/ALT 48 U/L (13-61); SODIUM 137 mmol/L (136-145); TOT PROT 7.2 g/dl (6.4-8.2)
--- NOTE | 2019-01-08 15:09 | PN ---
BHS COWS - Scale Resting Pulse: 0= [place] 80 or Below Sweatin= Chills/Flushing Restless Observation: 1= Difficult to Sit Still Pupil Size: 0= Normal to Room Light Bone or Joint Aches: 1= Mild Discomfort Runny Nose/ Eye Tearin= Nasal Congestion GI Upset > 30mins: 0= None Tremor Observation of Outstretched Hands: 0= None Yawning Observation: 1= 1-2x During Session Anxiety or Irritability: 2=Irritable/Anxious Goose Flesh Skin: 3=Piloerection COWS Score: 10 BHS Progress Note (SOAP) Subjective: Body Aches, Sweating, Nasal Congestion. Objective: PATIENT A & O X 3, OBSERVED AMBULATING ON UNIT. IN NO ACUTE DISTRESS. 01/08/19 15:08 Vital Signs Temperature 97.7 F 01/08/19 09:24 Pulse Rate 77 01/08/19 09:24 Respiratory Rate 18 01/08/19 09:24 Blood Pressure 118/71 01/08/19 09:24 O2 Sat by Pulse Oximetry (%) Laboratory Tests 01/08/19 01/08/19 01/08/19 06:24 06:24 06:24 WBC 9.0 RBC 4.24 Hgb 13.1 Hct 37.9 MCV 89.5 MCH 31.0 MCHC 34.7 RDW 13.7 Plt Count 224 MPV 8.8 Sodium 137 Potassium 4.4 Chloride 100 Carbon Dioxide 29 Anion Gap 8 BUN 13 Creatinine 1.1 Creat Clearance w eGFR > 60 Random Glucose 81 Calcium 9.0 Total Bilirubin 0.3 AST 30 ALT 48 Alkaline Phosphatase 124 H Total Protein 7.2 Albumin 3.6 RPR Titer Nonreactive LABS NOTED. Assessment: 01/08/19 15:08 WITHDRAWAL SYMPTOMS. Plan: CONTINUE DETOX. INCREASE DAILY PO FLUID INTAKE.
[2019-01-08] MEDS: P-EPHED 60MG/TRIPROLIDI 2.5MG TABLET PO PRN (18:43)
[2019-01-08] MEDS: guaiFENesin/D-METHORPHAN HB 10 ML UNIT-DOSE CUPS PO PRN (18:44)
[2019-01-08] MEDS: THIAMINE HCL 100 MG TABLET (FP) PO SCH (23:02)
[2019-01-09 08:54] VITALS: BP 158/96; PULSE 92; TEMP 98.2
[2019-01-09] MEDS ORDERED: METHADONE HCL 5 MG TABLET (FOR DETOX USE ONLY) PO ONE (10:00)
[2019-01-09] MEDS: NICOTINE 21 MG/24 HOURS TOPICAL PATCH TD SCH (10:18)
[2019-01-09] MEDS: PRENATAL VITAMINS W/ FOLIC ACID TABLET (FP) PO SCH (10:18)
[2019-01-09] MEDS: cloNIDine HCL 0.1 MG TABLET PO SCH (10:18)
[2019-01-09] MEDS: guaiFENesin/D-METHORPHAN HB 10 ML UNIT-DOSE CUPS PO PRN (10:19)
--- NOTE | 2019-01-09 12:21 | DS ---
[facility] Detox Discharge Summary Admission Date: 01/07/19 Discharge Date: 01/09/19 - History Present History: Alcohol Dependence, Cocaine Dependence, Opioid Dependence - Physical Exam Results Vital Signs: Vital Signs Temperature 98.2 F 01/09/19 08:52 Pulse Rate 92 H 01/09/19 08:52 Respiratory Rate 18 01/09/19 08:52 Blood Pressure 158/96 01/09/19 08:52 O2 Sat by Pulse Oximetry (%) - Treatment Hospital Course: Detox Protocol Followed - Medication Discharge Medications: Ambulatory Orders NK [No Known Home Medication] 05/22/16 - Diagnosis (1) Cannabis dependence Current Visit: No Status: Chronic (2) Cocaine abuse Current Visit: No Status: Chronic (3) IVDU (intravenous drug user) Current Visit: No Status: Chronic (4) Opioid dependence with withdrawal Current Visit: No Status: Chronic (5) Hepatitis C Current Visit: No Status: Chronic Qualifiers: Viral hepatitis chronicity: chronic Hepatic coma status: without hepatic coma Qualified Code(s): B18.2 - Chronic viral hepatitis C (6) Nicotine dependence Current Visit: Yes Status: Chronic Qualifiers: Nicotine product type: cigarettes Substance use status: in withdrawal Qualified Code(s): F17.213 - Nicotine dependence, cigarettes, with withdrawal - AMA Did Patient Leave Against Medical Advice: Yes (states its his daughters birthday and he is spending time with her. )
[2019-01-10] MEDS ORDERED: METHADONE HCL 5 MG TABLET (FOR DETOX USE ONLY) PO ONE (10:00)
[2019-01-11] MEDS ORDERED: METHADONE HCL 10 MG TABLET (FOR DETOX USE ONLY) PO ONE (10:00)
[2019-01-12] MEDS ORDERED: METHADONE HCL 5 MG TABLET (FOR DETOX USE ONLY) PO ONE (06:00)
== END 2019-01-09 12:37 | disposition left against medical advice (07) | DRG 770 ==
LOC: YASAS 11:11 → Y6N 16:23
PROVIDERS: ADMIT Surgery; ATTEND Surgery
PROC: HZ2ZZZZ Detoxification Services for Substance Abuse Treatment (ICD-10-PCS; principal; 2019-01-07)
DX: F11.23 Opioid dependence with withdrawal (principal); F10.230 Alcohol dependence with withdrawal, uncomplicated; F14.20 Cocaine dependence, uncomplicated; F12.20 Cannabis dependence, uncomplicated; F17.213 Nicotine dependence, cigarettes, with withdrawal; M54.5 Low back pain; B18.2 Chronic viral hepatitis C
CPT/HCPCS: 36415; 80053; 85027; 86593; J0735

== ENCOUNTER 2019-12-31 13:29 | Inpatient (IN) | payer OTHER ==
--- NOTE | 2019-12-31 13:50 | BHS.RME ---
Substance Use & Tx History - Substance Use History Opiates (Heroin) Substance amount: 1 bundle Frequency of use: Daily Substance route: Injection (ex: intravenous or skin popping) Date of Last Use: 12/30/19 Nicotine Substance amount: 3 packs Frequency of use: Daily Substance route: Smoking Date of Last Use: 12/31/19 Cannabis Substance amount: 1 blunt Frequency of use: Once a month Substance route: Smoking Date of Last Use: 12/24/19 Physical/Psych/Mental Status - Behavior General Behavior: Increased activity (restlessness, agitation) Eye Contact: Normal - Cooperativeness Cooperativeness: Cooperative - Thinking Thought Processes: Tight, Logical, Goal Directed Thought content: Future oriented - Physical Health Problems Is patient presently having any pain?: No Does patient presently have any injuries (include location): No Does patient currently have a fever: No Is patient : No COWS - Scale Resting Pulse: 2= [place] 101-120 Sweatin= Beads of Sweat on Face Restless Observation: 1= Difficult to Sit Still Pupil Size: 1= Pupils >than Normal Bone or Joint Aches: 4=Acute Joint/Muscle Pain Runny Nose/ Eye Tearin= Runny Nose/Eyes GI Upset > 30mins: 2= Nausea/Diarrhea Tremor Observation: 1= Tremor [place], Not Seen Yawning Observation: 1= 1-2x During Session Anxiety or Irritability: 1=Feels Anxious/Irritable Goose Flesh Skin: 3=Piloerection COWS Score: 21
--- NOTE | 2019-12-31 16:05 | HP ---
COWS - Scale Resting Pulse: 2= [place] 101-120 (Meets criteria for heroin detox) Sweatin= Beads of Sweat on Face Restless Observation: 1= Difficult to Sit Still Pupil Size: 1= Pupils >than Normal Bone or Joint Aches: 4=Acute Joint/Muscle Pain Runny Nose/ Eye Tearin= Runny Nose/Eyes GI Upset > 30mins: 2= Nausea/Diarrhea Tremor Observation: 1= Tremor [place], Not Seen Yawning Observation: 1= 1-2x During Session Anxiety or Irritability: 1=Feels Anxious/Irritable Goose Flesh Skin: 3=Piloerection COWS Score: 21 CIWA Score - Admission Criteria OASAS Guidelines: Admission for Medically Managed Detox: Requires at least one of the followin. CIWA greater than 12 2. Seizures within the past 24 hours 3. Delirium tremens within the past 24 hours 4. Hallucinations within the past 24 hours 5. Acute intervention needed for co occurring medical disorder 6. Acute intervention needed for co occurring psychiatric disorder 7. Severe withdrawal that cannot be handled at a lower level of care (continued vomiting, continued diarrhea, abnormal vital signs) requiring intravenous medication and/or fluids 8. Admitting History and Physical - Admission History of Present Illness: This is a 49 year old male PMH of HCV (will start treatment next week) Presents to the clinic for heroin detox. He started using heroin 5 years ago, uses a bundle per day, only injects. Last use was last night. No hx of overdose. No history of seizures Alcohol use 1,2 units per week. Smokes 1-3ppd for 35 years. Marijuana use is very infrequent, a few puffs per month. Heavy use in the past. 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 Physical Exam: - AOx3 - Lungs: Clear B/L - CVS: RRR - Abdomen: Soft, ND, NT - Extremities: No pitting edema - PARK WORKER: Motor 5/5, sensations intact - Smoking History Smoking history: Current every day smoker Have you smoked in the past 12 months: Yes Aproximately how many cigarettes per day: 60 - Alcohol/Substance Use Hx Alcohol Use: No Admission ROS BHS - HPI Allergies/Adverse Reactions: Allergies Allergy/AdvReac Type Severity Reaction Status Date / Time No Known Allergies Allergy Verified 12/31/19 15:13 Patient History - Patient Medical History Hx Anemia: No Hx Asthma: No Hx Chronic Obstructive Pulmonary Disease (COPD): No Hx Cancer: No Hx Cardiac Disorders: No Hx Congestive Heart Failure: No Hx Hypertension: No Hx Hypercholesterolemia: No Hx Pacemaker: No HX Cerebrovascular Accident: No Hx Seizures: No Hx Dementia: No Hx Diabetes: No Hx Gastrointestinal Disorders: No Hx Liver Disease: No Hx Genitourinary Disorders: No Hx Sexually Transmitted Disorders: No Hx Renal Disease (ESRD): No Hx Thyroid Disease: No Hx Human Immunodeficiency Virus (HIV): No Hx Hepatitis C: Yes (no treatment) Hx Depression: Yes (situational problems) Hx Suicide Attempt: No Hx Bipolar Disorder: No Hx Schizophrenia: No - Patient Surgical History Past Surgical History: Yes Hx Neurologic Surgery: No Hx Cataract Extraction: No Hx Cardiac Surgery: No Hx Lung Surgery: No Hx Breast Surgery: No Hx Breast Biopsy: No Hx Abdominal Surgery: No Hx Appendectomy: No Hx Cholecystectomy: No Hx Genitourinary Surgery: No Hx Section: No Hx Orthopedic Surgery: No Other Surgical History: TONSILECTOMY @ 12 YEARS OLD Anesthesia Reaction: No - PPD History Previous Implant?: Yes Documented Results: Negative w/proof Implanted On Prior [facility] Admission?: Yes Date: 10/10/18 Results: Negative - Smoking Cessation Smoking history: Current every day smoker Have you smoked in the past 12 months: Yes Aproximately how many cigarettes per day: 60 Cigars Per Day: 0 Hx Chewing Tobacco Use: No Initiated information on smoking cessation: Yes 'Breaking Loose' booklet given: 12/31/19 - Substances abused Heroin Substance route: Injection Frequency: Daily Amount used: a bundle/ 10 bags Age of first use: 44 Date of last use: 12/30/19 Admission Physical Exam S - Vital Signs Vital Signs: Vital Signs - 24 hr 12/31/19 15:15 Temperature 97.0 F L Pulse Rate 103 H Respiratory 19 Rate Blood Pressure 163/113 H Breathalyzer - Breathalyzer Breathalyzer: 0 Urine Drug Screen - Test Device Lot number: [id number] Expiration date: 10/12/21 - Control Is test valid?: Yes - Results Drug screen NEGATIVE: No Urine drug screen results: THC-Marijuana, FEN-Fentanyl, MOP-Opiates Inpatient Rehab Admission - Rehab Decision to Admit Inpatient rehab admission?: No
[2019-12-31] MEDS ORDERED: MAG HYDROX/AL HYDROX/SIMETH 30 ML UNIT-DOSE CUP PO PRN (16:09)
[2019-12-31] MEDS ORDERED: BISMUTH SUBSALICYLATE 524 MG/30 ML UD PO PRN (16:09)
[2019-12-31] MEDS ORDERED: MENTHOL/PHENOL 1 EACH UD MM PRN (16:09)
[2019-12-31] MEDS ORDERED: IBUPROFEN 400 MG TABLET (FP) PO PRN (16:09)
[2019-12-31] MEDS ORDERED: ACETAMINOPHEN 325 MG TABLET (FP) PO PRN ×2 (16:09)
[2019-12-31] MEDS ORDERED: METHOCARBAMOL 500 MG TABLET PO PRN (16:09)
[2019-12-31] MEDS ORDERED: MAGNESIUM HYDROX 2400MG/30ML ORAL SUSPENSION 30 ML CUP PO PRN (16:09)
[2019-12-31] MEDS ORDERED: MAGNESIUM CITRATE 300 ML BOTTLE PO PRN (16:09)
[2019-12-31] MEDS ORDERED: hydrOXYzine PAMOATE 25 MG CAPSULE (FP) PO PRN (16:09)
[2019-12-31] MEDS ORDERED: MELATONIN 5 MG TABLETS PO PRN (16:09)
[2019-12-31] MEDS ORDERED: cloNIDine HCL 0.1 MG TABLET PO PRN (16:09)
[2019-12-31] MEDS ORDERED: METHADONE HCL 10 MG TABLET (FOR DETOX USE ONLY) PO ONE (17:30)
[2019-12-31] MEDS ORDERED: THIAMINE HCL 100 MG TABLET (FP) PO SCH (22:00)
[2019-12-31 22:12] VITALS: BP 120/84; PULSE 93; TEMP 98.3
--- NOTE | 2020-01-01 08:23 | CONSULT ---
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 Refer to addiction counselor's summary for further information Medical History: Significant for GERD, hepatitis C and history of tonsillectomy at age 12. Smokes cigarettes 3 ppd Psychiatric History: Patient is known for multiple previous admissions to [facility] facility. Historical narrative remains consistent. Reports that in the past, he has seen therapists for personal issues in his life. Told video game script writer that his addiction stemmed from those issues. Denies previous psychiatric hospitalization or suicidal attempt. At present, denies experiencing depressive symptoms, S/H ideations. However, reports sleeping poorly. Told video game script writer that he has been prescribed Trazadone with good result in the past Physical/Sexual Abuse/Trauma History: Denies history of abuse as child or DV relationship as an adult Mental Status Exam - Mental Status Exam Alert and Oriented to: Time, Place, Person Cognitive Function: Fair Patient Appearance: Well Groomed Mood: Hopeful, Euthymic Patient Behavior: Cooperative Speech Pattern: Clear Voice Loudness: Normal Thought Process: Intact, Goal Oriented Thought Disorder: Not Present Hallucinations: Denies Suicidal Ideation: Denies Homicidal Ideation: Denies Insight/Judgement: Poor Sleep: Poorly Appetite: Good Muscle strength/Tone: Normal Gait/Station: Normal Psychiatric Findings - Problem List ([place] 1, 2,3) (1) Substance-induced sleep disorder Current Visit: Yes Status: Acute (2) Opioid dependence with withdrawal Current Visit: No Status: Acute (3) Cannabis dependence Current Visit: No Status: Acute (4) Nicotine dependence Current Visit: No Status: Chronic Qualifiers: Nicotine product type: cigarettes Substance use status: in withdrawal Qualified Code(s): F17.213 - Nicotine dependence, cigarettes, with withdrawal (5) Hepatitis C Current Visit: No Status: Chronic Qualifiers: Viral hepatitis chronicity: chronic Hepatic coma status: without hepatic coma Qualified Code(s): B18.2 - Chronic viral hepatitis C - Initial Treatment Plan Initial Treatment Plan: 1) Start Trazadone 50 mg po HS. 2) Continue inpatient detoxification
--- NOTE | 2020-01-01 09:42 | DS ---
[facility] Detox Discharge Summary Admission Date: 12/31/19 Discharge Date: 01/01/20 - History Present History: Opioid Dependence Pertinent Past History: Pt states he needs to leave today. Came in 24 hours ago. Pt states has many things going on his life. d/w pt [facility] Rx with suboxone and use of Naloxone as needed. Pt has a job, home and will f/u PCP - Physical Exam Results Vital Signs: Vital Signs Temperature 98.3 F 01/01/20 07:28 Pulse Rate 93 H 01/01/20 07:28 Respiratory Rate 18 01/01/20 07:28 Blood Pressure 120/84 01/01/20 07:28 O2 Sat by Pulse Oximetry (%) - Medication Discharge Medications: Ambulatory Orders NK [No Known Home Medication] 05/22/16 - AMA Did Patient Leave Against Medical Advice: Yes
[2020-01-01 09:48] LABS: HEMATOCRIT 42.8 % (35.4-49); HEMOGLOBIN 14.8 GM/dL (11.7-16.9); MCH 30.3 pg (25.7-33.7); MCHC 34.4 g/dl (32.0-35.9); MEAN CELL VOLUME 88.1 fl (80-96); MEAN PLT VOLUME 9.6 fl (7.5-11.1); PLATELET COUNT 188 K/MM3 (134-434); RBC 4.86 M/mm3 (4.00-5.60); RDW 13.3 % (11.9-15.9); WHITE BLOOD COUNT 5.8 K/mm3 (4.0-10.0)
[2020-01-01] MEDS ORDERED: NICOTINE 21 MG/24 HOURS TOPICAL PATCH TD SCH (10:00)
[2020-01-01] MEDS ORDERED: PRENATAL VITAMINS W/ FOLIC ACID TABLET (FP) PO SCH (10:00)
[2020-01-01] MEDS ORDERED: METHADONE (DETOX) 20 MG, METHADONE (DETOX) 5 MG PO ONE (10:00)
[2020-01-01 10:23] LABS: ALBUMIN 3.4 g/dl (3.4-5.0); BILIRUBIN,TOTAL 0.5 mg/dL (0.2-1); BLOOD UREA NITROGEN 13.9 mg/dL (7-18); CALCIUM 9.1 mg/dL (8.5-10.1); CREATININE 0.9 mg/dL (0.55-1.3); POTASSIUM 4.5 mmol/L (3.5-5.1); TOT PROT 7.5 g/dl (6.4-8.2)
--- NOTE | 2020-01-01 15:55 | PN ---
Teaching Attending Note Name of Resident: Frantz Razo ATTENDING PHYSICIAN STATEMENT I saw and evaluated the patient. I reviewed the resident's note and discussed the case with the resident. I agree with the resident's findings and plan as documented. SUBJECTIVE: Agree with resident's subjective findings OBJECTIVE: Agree with resident's objective findings ASSESSMENT AND PLAN: Agree with plan for admission to detox.
[2020-01-01] MEDS ORDERED: traZODone HCL 50 MG TABLET (FP) PO SCH (22:00)
[2020-01-02] MEDS ORDERED: METHADONE HCL 10 MG TABLET (FOR DETOX USE ONLY) PO ONE (10:00)
[2020-01-03] MEDS ORDERED: METHADONE (DETOX) 10 MG, METHADONE (DETOX) 5 MG PO ONE (10:00)
[2020-01-04] MEDS ORDERED: METHADONE HCL 10 MG TABLET (FOR DETOX USE ONLY) PO ONE (10:00)
[2020-01-05] MEDS ORDERED: METHADONE HCL 5 MG TABLET (FOR DETOX USE ONLY) PO ONE (06:00)
== END 2020-01-01 09:39 | disposition left against medical advice (07) | DRG 770 ==
LOC: YASAS 13:29 → Y6N 15:56
PROVIDERS: ADMIT Allergy & Immunology; ATTEND Allergy & Immunology
PROC: HZ2ZZZZ Detoxification Services for Substance Abuse Treatment (ICD-10-PCS; principal; 2019-12-31)
DX: F11.23 Opioid dependence with withdrawal (principal); F12.20 Cannabis dependence, uncomplicated; F17.210 Nicotine dependence, cigarettes, uncomplicated; F19.282 Other psychoactive substance dependence with psychoactive substance-induced sleep disorder; K21.9 Gastro-esophageal reflux disease without esophagitis; B18.2 Chronic viral hepatitis C
CPT/HCPCS: 36415; 80053; 85027; 86593; J0735

== ENCOUNTER 2022-08-01 19:37 | Emergency (ER) | payer BC, OTHER ==
[2022-08-01 19:42] VITALS: BP 148/84; PULSE 104; RESP 18; TEMP 97.8; BMI 31.4
[2022-08-01] MEDS ORDERED: FAMOTIDINE 20 MG/50 ML IVPB 20 MG/50 ML MG IVPB ONE ×2 (20:34→20:52)
[2022-08-01] MEDS ORDERED: ALBUTEROL SO4 HFA INHALER IH ONE ×2 (20:44→20:52)
[2022-08-01 21:26] LABS: URINE APPEARANCE CLEAR; URINE BILIRUBIN NEGATIVE (NEGATIVE); URINE COLOR YELLOW; URINE GLUCOSE (UA) NEGATIVE (NEGATIVE); URINE KETONE TRACE (NEGATIVE); URINE LEUK ESTERASE NEGATIVE (NEGATIVE); URINE NITRITE NEGATIVE (NEGATIVE); URINE PROTEIN NEGATIVE (NEGATIVE); URINE UROBILINOGEN 0.2 mg/dL (0.2-1.0)
[2022-08-01 21:27] LABS: BASO % 0.5 % (0-2.0); HEMOGLOBIN 15.4 GM/dL (11.7-16.9); LYMPH % 21.1 % (8-40); MCHC 34.9 g/dl (32.0-35.9); MEAN PLT VOLUME 7.9 fl (7.5-11.1); MONO % 9.6 % (3.8-10.2); NEUT % 65.8 % (42.8-82.8); PLATELET COUNT 245 10^3/uL (134-434); RBC 5.12 M/mm3 (4.00-5.60)
[2022-08-01 22:10] LABS: ALBUMIN 4.1 g/dl (3.4-5.0); BILIRUBIN,TOTAL 0.6 mg/dL (0.2-1); CALCIUM 9.4 mg/dL (8.5-10.1); CREATININE 1.2 mg/dL (0.55-1.3)
== END 2022-08-02 01:00 | disposition left against medical advice (07) ==
LOC: JER 19:37
PROC: 3E033GC Introduction of Other Therapeutic Substance into Peripheral Vein, Percutaneous Approach (ICD-10-PCS; principal; 2022-08-01)
DX: K59.00 Constipation, unspecified (principal); M54.50 Low back pain, unspecified; F19.10 Other psychoactive substance abuse, uncomplicated
CPT/HCPCS: 36415; 71045-TC-FY; 72131-TC; 74176-TC; 80053; 81003; 82272; 83605; 84484; 85025; 87086; 93005; 93010; 99285-25